=== PATIENT | female | born 1955 | race Caucasian/White ===

== ENCOUNTER → 2017-08-24 | Outpatient (CLI) | payer MEDICARE, OTHER ==
--- NOTE | 2017-08-28 08:04 | CT ---
EXAMINATION TYPE: CT angio neck DATE OF EXAM: 08/24/2017 COMPARISON: 10/28/2014 HISTORY: Vertebral Artery Stenosis CT DLP: 209.4 mGycm CONTRAST: CTA cervical carotids is performed and with IV Contrast, patient injected with 65ml mL of Omnipaque 3 50. Contrast CTA of the cervical carotids was performed 3-D reconstruction imaging obtained at a separate workstation. Right carotid system: Mild plaque is seen of the right common carotid artery. There is moderate plaq ue also noted at the carotid bulb. Estimated diameter reduction is 50%. ECA is patent. Right vert ebral artery is dominant and patent. Left carotid system: Mild plaque is seen of the left common carotid artery. There is minimal plaque also noted at the carotid bulb. No significant diameter reduction appreciated. ECA is patent. Left ve rtebral artery is diminutive in size however remains patent. IMPRESSION: 1. Estimated diameter reduction Right ICA 50% 2. No significant diameter reduction left ICA system. 3. Dominant right vertebral artery with diminutive left vertebral artery unchanged from prior examina tion.
== END | disposition home or self-care (01) ==
LOC: RADCTMAIN 17:14
PROVIDERS: ATTEND Psychiatry & Neurology Neurology
DX: I65.23 Occlusion and stenosis of bilateral carotid arteries (principal); Z88.6 Allergy status to analgesic agent
CPT/HCPCS: 70498; Q9967

== ENCOUNTER 2017-10-29 11:50 | Inpatient (IN) | payer MEDICARE, OTHER ==
[2017-10-29] MEDS ORDERED: IPRATROPIUM-ALBUTEROL 3 ML NEB INHALATION STA (12:21)
[2017-10-29] MEDS ORDERED: SODIUM CHLORIDE 0.9% 1,000 ML IV STA ×2 (12:22→15:39)
--- NOTE | 2017-10-29 12:25 | ED ---
Recheck HPI - General Chief Complaint: Recheck/Abnormal Lab/Rx Stated Complaint: Hyperglycemia Time Seen by Provider: 10/29/17 12:00 Source: patient, RN notes reviewed Mode of arrival: ambulatory Limitations: no limitations - History of Present Illness Initial Comments: This is a 62-year-old female who was sent over by her doctor for evaluation after it was found that she had a elevated glucose of 502. The patient did have laboratory work done in the office of her primary care doctor 5 days ago she was found have a glucose of 502. Patient complains of a headache that is rather severe in nature sharp. She has had a cough no phlegm production no fevers or chills no sweats. She states she has been thirsty and urinating a lot. She states this all started 3 days ago she also had loss of her right eye peripheral vision 3 days ago. No trauma is reported. MD Complaint: abnormal lab - Related Data Home Medications Medication Instructions Recorded Confirmed Loratadine [Claritin] 10 mg PO DAILY 01/01/16 10/29/17 Meclizine HCl 25 mg PO Q6H PRN 01/01/16 10/29/17 Montelukast [Singulair] 10 mg PO HS 01/01/16 10/29/17 Cholecalciferol [Vitamin D3] 1,000 unit PO DAILY 01/02/16 10/29/17 Fluticasone Nasal [place] [Flonase 1 spray EA NOSTRIL BID 01/02/16 10/29/17 Nasal [place]] HYDROcodone/APAP 5-325MG [[place] 1 tab PO TID PRN 01/02/16 10/29/17 5-325] amLODIPine [Norvasc] 10 mg PO DAILY 01/02/16 10/29/17 Albuterol Sulfate [Proair Hfa] 2 puff INHALATION RT-Q4H PRN 10/29/17 10/29/17 Aspirin EC [Ecotrin Low Dose] 81 mg PO DAILY 10/29/17 10/29/17 Chlorzoxazone [Parafon Forte DSC] 500 mg PO Q6HR PRN 10/29/17 10/29/17 DULoxetine HCL [Cymbalta] 60 mg PO DAILY 10/29/17 10/29/17 Fluticasone Propionate [Flovent 1 puff INHALATION RT-BID 10/29/17 10/29/17 Hfa 220MCG] hydrOXYzine PAMOATE [Vistaril] 50 mg PO TID PRN 10/29/17 10/29/17 hydrOXYzine PAMOATE [Vistaril] 100 mg PO HS PRN 10/29/17 10/29/17 Allergies Allergy/AdvReac Type Severity Reaction Status Date / Time baclofen Allergy Unknown Verified 10/29/17 12:05 gabapentin Allergy Anaphylaxis Verified 10/29/17 12:05 naproxen Allergy Swelling Verified 10/29/17 12:05 Review of Systems ROS Statement: Those systems with pertinent positive or pertinent negative responses have been documented in the HPI. ROS Other: All systems not noted in ROS Statement are negative. Past Medical History Past Medical History: Chest Pain / Angina, Hypertension Additional Past Medical History / Comment(s): BACK PAIN, Vertigo, chronic shoulder pain History of Any Multi-Drug Resistant Organisms: None Reported Past Surgical History: Cholecystectomy, Heart Catheterization Additional Past Surgical History / Comment(s): EPIDURAL INJECTIONS, patient says they burned the nerves on her neck. Heart cath done in 2012. Past Anesthesia/Blood Transfusion Reactions: Motion Sickness Past Psychological History: Anxiety Smoking Status: Current every day smoker Past Alcohol Use History: None Reported Past Drug Use History: None Reported - Past Family History Father Family Medical History: Hypertension, Myocardial Infarction ([place]) Additional Family Medical History / Comment(s): AT AGE 63 Mother Family Medical History: Diabetes Mellitus, Dialysis Additional Family Medical History / Comment(s): MOM UNK AGE-COMPLICATIONS FROM DIABETES General Exam - General Exam Comments Initial Comments: This is a well-developed well-nourished awake alert oriented 3 female she does have an active cough Limitations: no limitations General appearance: alert, anxious Head exam: Present: atraumatic, normocephalic, normal inspection Eye exam: Present: PERRL, EOMI, other (Examination GI grounds reveals no definite to pathology noted is a poor study). Absent: scleral icterus, conjunctival injection, periorbital swelling Pupils: Present: normal accommodation ENT exam: Present: mucous membranes dry Neck exam: Present: normal inspection. Absent: tenderness, meningismus, lymphadenopathy Respiratory exam: Present: wheezes, decreased breath sounds. Absent: respiratory distress, rales, rhonchi, stridor Cardiovascular Exam: Present: normal rhythm, tachycardia, normal heart sounds. Absent: systolic murmur, diastolic murmur, rubs, gallop, clicks GI/Abdominal exam: Present: soft, normal bowel sounds. Absent: distended, tenderness, guarding, rebound, rigid Extremities exam: Present: normal inspection, full ROM, normal capillary refill. Absent: tenderness, pedal edema, joint swelling, calf tenderness Back exam: Present: normal inspection Neurological exam: Present: alert, oriented X3, CN II-XII intact Psychiatric exam: Present: normal affect, normal mood Skin exam: Present: warm, dry, intact, normal color. Absent: rash Course Vital Signs 10/29/17 10/29/17 10/29/17 11:58 12:35 12:58 Temperature 98.1 F Pulse Rate 107 H 102 H 97 Respiratory 20 18 Rate Blood Pressure 134/66 138/83 O2 Sat by Pulse 94 L 95 Oximetry 10/29/17 10/29/17 10/29/17 13:07 13:33 14:00 Temperature 98.1 F 98.1 F Pulse Rate 96 60 99 Respiratory 18 18 Rate Blood Pressure 168/71 142/65 O2 Sat by Pulse 98 95 Oximetry - Reevaluation(s) Reevaluation #1: 10/29/17 15:30 Patient is feeling improved after the updraft treatment. Her glucose has improved somewhat with IV hydration. Her lactic acid is elevated she'll receive more fluids discuss the findings with Dr. Kat the patient will be admitted consultation by Dr. Escamilla continued treatment for elevated glucose grass until is negative at this time. Reevaluation #2: 10/29/17 15:30 The patient was initially started on antibiotics by her physician. No definite source of infection is revealed at this time. She does demonstrate an elevated leukocyte count however. Reevaluation #3: 10/29/17 15:32 The lactic acid is somewhat elevated this is likely on the basis of dehydration and renal insufficiency due to the white blood cell count and the previous history of antibiotics patient will be given a dose of Rocephin. Reevaluation #4: 10/29/17 15:37 Total time of discussing smoking risks and stopping the same 3.1 minutes Medical Decision Making - Lab Data Result diagrams: 10/29/17 11:20 10/29/17 11:20 Lab Results 10/29/17 10/29/17 10/29/17 Range/Units 11:20 11:20 11:20 WBC (3.8-10.6) k/uL RBC (3.80-5.40) m/uL Hgb (11.4-16.0) gm/dL Hct (34.0-46.0) % MCV (80.0-100.0) fL MCH (25.0-35.0) pg MCHC (31.0-37.0) g/dL RDW (11.5-15.5) % Plt Count (150-450) k/uL Neutrophils % % Lymphocytes % % Monocytes % % Eosinophils % % Basophils % % Neutrophils # (1.3-7.7) k/uL Lymphocytes # (1.0-4.8) k/uL Monocytes # (0-1.0) k/uL Eosinophils # (0-0.7) k/uL Basophils # (0-0.2) k/uL PT 9.5 (9.0-12.0) sec INR 1.0 (<1.2) APTT 21.0 L (22.0-30.0) sec Sodium (137-145) mmol/L Potassium (3.5-5.1) mmol/L Chloride (98-107) mmol/L Carbon Dioxide (22-30) mmol/L Anion Gap mmol/L BUN (7-17) mg/dL Creatinine (0.52-1.04) mg/dL Est GFR (MDRD) Af Amer (>60 ml/min/1.73 sqM) Est GFR (MDRD) Non-Af (>60 ml/min/1.73 sqM) Glucose (74-99) mg/dL POC Glucose (mg/dL) (75-99) mg/dL POC Glu Cover Operator ID Plasma Lactic Acid Km (0.7-2.0) mmol/L Calcium (8.4-10.2) mg/dL Magnesium (1.6-2.3) mg/dL Total Bilirubin (0.2-1.3) mg/dL AST (14-36) U/L ALT (9-52) U/L Alkaline Phosphatase (38-126) U/L Total Creatine Kinase 36 (30-135) U/L CK-MB (CK-2) 0.3 (0.0-2.4) ng/mL CK-MB (CK-2) Rel Index 0.8 NT-Pro-B Natriuret Pep 259 pg/mL Total Protein (6.3-8.2) g/dL Albumin (3.5-5.0) g/dL Acetone, Qual (Negative) 10/29/17 10/29/17 10/29/17 Range/Units 11:20 11:20 11:20 WBC 22.5 H (3.8-10.6) k/uL RBC 5.50 H (3.80-5.40) m/uL Hgb 15.6 (11.4-16.0) gm/dL Hct 46.6 H (34.0-46.0) % MCV 84.7 (80.0-100.0) fL MCH 28.4 (25.0-35.0) pg MCHC 33.6 (31.0-37.0) g/dL RDW 13.9 (11.5-15.5) % Plt Count 449 (150-450) k/uL Neutrophils % 77 % Lymphocytes % 17 % Monocytes % 4 % Eosinophils % 1 % Basophils % 0 % Neutrophils # 17.4 H (1.3-7.7) k/uL Lymphocytes # 3.9 (1.0-4.8) k/uL Monocytes # 0.9 (0-1.0) k/uL Eosinophils # 0.1 (0-0.7) k/uL Basophils # 0.0 (0-0.2) k/uL PT (9.0-12.0) sec INR (<1.2) APTT (22.0-30.0) sec Sodium 133 L (137-145) mmol/L Potassium 5.4 H (3.5-5.1) mmol/L Chloride 92 L (98-107) mmol/L Carbon Dioxide 21 L (22-30) mmol/L Anion Gap 20 mmol/L BUN 30 H (7-17) mg/dL Creatinine 1.27 H (0.52-1.04) mg/dL Est GFR (MDRD) Af Amer 52 (>60 ml/min/1.73 sqM) Est GFR (MDRD) Non-Af 43 (>60 ml/min/1.73 sqM) Glucose 517 H* (74-99) mg/dL POC Glucose (mg/dL) (75-99) mg/dL POC Glu Cover Operator ID Plasma Lactic Acid Km (0.7-2.0) mmol/L Calcium 10.8 H (8.4-10.2) mg/dL Magnesium 2.2 (1.6-2.3) mg/dL Total Bilirubin 0.4 (0.2-1.3) mg/dL AST 12 L (14-36) U/L ALT 22 (9-52) U/L Alkaline Phosphatase 191 H (38-126) U/L Total Creatine Kinase (30-135) U/L CK-MB (CK-2) (0.0-2.4) ng/mL CK-MB (CK-2) Rel Index NT-Pro-B Natriuret Pep pg/mL Total Protein 8.6 H (6.3-8.2) g/dL Albumin 4.9 (3.5-5.0) g/dL Acetone, Qual Negative (Negative) 10/29/17 10/29/17 10/29/17 Range/Units 11:20 12:27 13:56 WBC (3.8-10.6) k/uL RBC (3.80-5.40) m/uL Hgb (11.4-16.0) gm/dL Hct (34.0-46.0) % MCV (80.0-100.0) fL MCH (25.0-35.0) pg MCHC (31.0-37.0) g/dL RDW (11.5-15.5) % Plt Count (150-450) k/uL Neutrophils % % Lymphocytes % % Monocytes % % Eosinophils % % Basophils % % Neutrophils # (1.3-7.7) k/uL Lymphocytes # (1.0-4.8) k/uL Monocytes # (0-1.0) k/uL Eosinophils # (0-0.7) k/uL Basophils # (0-0.2) k/uL PT (9.0-12.0) sec INR (<1.2) APTT (22.0-30.0) sec Sodium (137-145) mmol/L Potassium (3.5-5.1) mmol/L Chloride (98-107) mmol/L Carbon Dioxide (22-30) mmol/L Anion Gap mmol/L BUN (7-17) mg/dL Creatinine (0.52-1.04) mg/dL Est GFR (MDRD) Af Amer (>60 ml/min/1.73 sqM) Est GFR (MDRD) Non-Af (>60 ml/min/1.73 sqM) Glucose (74-99) mg/dL POC Glucose (mg/dL) 485 H 386 H (75-99) mg/dL POC Glu Cover Operator Gina Be Danielle Plasma Lactic Acid Km 4.0 H* (0.7-2.0) mmol/L Calcium (8.4-10.2) mg/dL Magnesium (1.6-2.3) mg/dL Total Bilirubin (0.2-1.3) mg/dL AST (14-36) U/L ALT (9-52) U/L Alkaline Phosphatase (38-126) U/L Total Creatine Kinase (30-135) U/L CK-MB (CK-2) (0.0-2.4) ng/mL CK-MB (CK-2) Rel Index NT-Pro-B Natriuret Pep pg/mL Total Protein (6.3-8.2) g/dL Albumin (3.5-5.0) g/dL Acetone, Qual (Negative) - EKG Data -: EKG Interpreted by Me EKG shows normal: sinus rhythm (Sinus rhythm rate of 98. We'll 154 QRS duration 72 daily 6 QTC of 354/451 nonspecific T-wave configuration) - Radiology Data Radiology results: report reviewed (I did review the imaging and reports no definite acute findings are seen.), image reviewed Critical Care Time Critical Care Time: Yes Critical Care Time: 37 minutes of critical care time which includes initial presentation with history physical labs x-rays several reevaluation the patient responsive therapy discuss with the patient family regarding findings with the admitting physician and documentation of the above. Disposition Clinical Impression: Uncontrolled diabetes mellitus, Renal insufficiency syndrome, Dehydration, COPD with exacerbation, Smoking Disposition: ADMITTED IP TO THIS [facility] Condition: Stable Referrals: Kiah Amin MD [Primary Care Provider] - 1-2 days
[2017-10-29 12:29] LABS: Glucose,Whole Blood 485 mg/dL (75-99)
[2017-10-29 12:44] LABS: Basophils % (A) 0 %; Eosinophils # (A) 0.1 k/uL (0-0.7); Eosinophils % (A) 1 %; HCT 46.6 % (34.0-46.0); HGB 15.6 gm/dL (11.4-16.0); Lymphocytes # (A) 3.9 k/uL (1.0-4.8); Lymphocytes % (A) 17 %; MCH 28.4 pg (25.0-35.0); MCHC 33.6 g/dL (31.0-37.0); MCV 84.7 fL (80.0-100.0); Mean Platelet Volume 7.8; Monocytes # (A) 0.9 k/uL (0-1.0); Monocytes % (A) 4 %; Neutrophils # (A) 17.4 k/uL (1.3-7.7); Neutrophils % (A) 77 %; Platelet Count 449 k/uL (150-450); RDW 13.9 % (11.5-15.5); WBC 22.5 k/uL (3.8-10.6)
[2017-10-29 12:53] LABS: Albumin 4.9 g/dL (3.5-5.0); Calcium 10.8 mg/dL (8.4-10.2); Magnesium 2.2 mg/dL (1.6-2.3); Potassium 5.4 mmol/L (3.5-5.1); Total Bilirubin 0.4 mg/dL (0.2-1.3); Total Protein 8.6 g/dL (6.3-8.2)
[2017-10-29 12:59] LABS: Prothrombin Time 9.5 sec (9.0-12.0)
--- NOTE | 2017-10-29 13:01 | XR ---
EXAMINATION TYPE: XR chest 2V DATE OF EXAM: 10/29/2017 COMPARISON: Chest x-ray January 01, 2016 HISTORY: Cough. TECHNIQUE: Frontal and lateral views of the chest are obtained. FINDINGS: There is chronic parenchymal change without suspicious focal air space opacity, pleural ef fusion, or pneumothorax seen. The cardiac silhouette size is stable and upper limits of normal. Th e osseous structures are intact. Numerous surgical clips in the mid abdomen are noted. IMPRESSION: No suspicious acute pulmonary process.
--- NOTE | 2017-10-29 13:03 | CT ---
EXAMINATION TYPE: CT brain wo con DATE OF EXAM: 10/29/2017 COMPARISON: 01/01/2016 HISTORY: Patient complains of headache, dizziness, sinus infection, and left side ear pain. CT DLP: 785.6 mGycm Automated exposure control for dose reduction was used. FINDINGS: There is encephalomalacia in the left occipital lobe from prior posterior cerebral artery distributio n infarct. This involves both the rea-white matter interface and therefore is not related to vasogen ic edema. This is new from the exam of 01/01/2016. This is also wedge shaped on series 3 image 29. No a cute intracranial hemorrhage or midline shift is seen. No suspicious extra axial fluid collection. Re mainder of the rea-white interface is preserved. Ventricles and peripheral sulci are mildly prominen t and symmetric compatible with age-related volume loss. Incidental note is made of a partially empty sella turcica. Posterior nasopharynx mucosal retention cyst is noted measuring 1.3 cm. Paranasal sin uses are well aerated as are the mastoid air cells. IMPRESSION: 1. NO ACUTE INTRACRANIAL PROCESS. 2. 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 THI S APPEARS CHRONIC BUT HAS DEVELOPED IN THE INTERIM IN COMPARISON TO EXAM OF 01/01/2016. 3. NO CURRENT EVIDENCE OF PARANASAL SINUS DISEASE ON CT. 1.3 CM POSTERIOR NASOPHARYNX MUCOSAL RETENTI ON CYST IS NOTED.
[2017-10-29 13:16] LABS: Creatine Kinase MB 0.3 ng/mL (0.0-2.4)
[2017-10-29] MEDS ORDERED: INSULIN REGULAR 100 UNIT/ML VIAL IV ONE (13:27)
[2017-10-29 13:58] LABS: Glucose,Whole Blood 386 mg/dL (75-99)
[2017-10-29] MEDS ORDERED: methylPREDNISolone SOD SUCCI 125 MG/2 ML VIAL IV STA (15:37)
[2017-10-29] MEDS ORDERED: INSULIN REGULAR 100 UNIT/ML VIAL SQ ONE (15:38)
[2017-10-29 15:39] LABS: Glucose,Whole Blood 303 mg/dL (75-99)
[2017-10-29] MEDS ORDERED: hydrOXYzine PAMOATE 25 MG CAP PO PRN ×2 (15:41)
[2017-10-29] MEDS ORDERED: MECLIZINE 25 MG TAB PO PRN (15:41)
[2017-10-29] MEDS ORDERED: CYCLOBENZAPRINE 5 MG TAB PO PRN (15:41)
[2017-10-29] MEDS ORDERED: cefTRIAXone IN SWFI 1,000 MG/10 ML SYRINGE IVP STA (15:43)
[2017-10-29] MEDS: IPRATROPIUM-ALBUTEROL 3 ML NEB INHALATION SCH ×2 (16:17→20:27)
[2017-10-29] MEDS: INSULIN ASPART 100 UNIT/ML 1 ML 10 ML VIAL SQ SCH (17:16)
[2017-10-29 17:18] LABS: Glucose,Whole Blood 392 mg/dL (75-99)
[2017-10-29] MEDS: HYDROcodone/APAP 5-325MG 1 EACH TAB PO PRN (18:17)
[2017-10-29] MEDS ORDERED: SODIUM CHLORIDE 0.9% 1,000 ML IV SCH ×2 (18:30→21:00)
[2017-10-29] MEDS ORDERED: INSULIN REGULAR BOLUS (FROM DRIP BAG) IV ONE (20:47)
[2017-10-29] MEDS ORDERED: Magnesium Replacement Protocol 1 EACH MISC MISCELLANE PRN (20:47)
[2017-10-29] MEDS ORDERED: Potassium Replacement Protocol 1 EACH MISC MISCELLANE PRN (20:47)
[2017-10-29 21:22] LABS: Basophils % (A) 0 %; Eosinophils % (A) 0 %; HGB 14.2 gm/dL (11.4-16.0); Lymphocytes # (A) 1.9 k/uL (1.0-4.8); Lymphocytes % (A) 12 %; MCH 28.8 pg (25.0-35.0); MCHC 33.9 g/dL (31.0-37.0); MCV 85.1 fL (80.0-100.0); Mean Platelet Volume 7.4; Monocytes # (A) 0.2 k/uL (0-1.0); Monocytes % (A) 1 %; Neutrophils % (A) 87 %; Platelet Count 377 k/uL (150-450); RBC 4.94 m/uL (3.80-5.40); RDW 13.9 % (11.5-15.5); WBC 16.1 k/uL (3.8-10.6)
[2017-10-29 21:37] LABS: Anion Gap 12 mmol/L; Blood Urea Nitrogen 26 mg/dL (7-17); Carbon Dioxide 21 mmol/L (22-30); Chloride 100 mmol/L (98-107); Glucose 264 mg/dL (74-99); Potassium 4.8 mmol/L (3.5-5.1); Sodium 133 mmol/L (137-145)
[2017-10-29 21:41] LABS: Glucose,Whole Blood 233 mg/dL (75-99)
[2017-10-29 21:43] LABS: Glucose,Whole Blood 321 mg/dL (75-99)
[2017-10-29] MEDS: INSULIN REGULAR 100 UNIT in SODIUM CHLORIDE 0.9% 100 ML IV SCH (21:59)
[2017-10-29 22:45] LABS: Hemoglobin A1C 9.7 % (4.0-6.0)
[2017-10-29] MEDS: D5-0.45% NACL WITH KCL 20MEQ/L 1,000 ML IV SCH (23:07)
[2017-10-29] MEDS: methylPREDNISolone SOD SUCCI 125 MG/2 ML VIAL IV SCH (23:11)
[2017-10-29] MEDS: MONTELUKAST 10 MG TAB PO SCH (23:11)
[2017-10-29 23:35] LABS: Glucose,Whole Blood 216 mg/dL (75-99)
[2017-10-30 00:18] LABS: Glucose,Whole Blood 268 mg/dL (75-99)
[2017-10-30] MEDS: IPRATROPIUM-ALBUTEROL 3 ML NEB INHALATION SCH ×6 (00:23→19:35)
[2017-10-30] MEDS: FLUTICASONE 50MCG/SPRAY NASAL 16GM EA NOSTRIL SCH ×3 (00:35→20:56)
[2017-10-30 01:04] LABS: Anion Gap 12 mmol/L; Blood Urea Nitrogen 24 mg/dL (7-17); Carbon Dioxide 23 mmol/L (22-30); Chloride 100 mmol/L (98-107); Glucose 272 mg/dL (74-99); Phosphorus 2.9 mg/dL (2.5-4.5); Potassium 4.3 mmol/L (3.5-5.1); Sodium 135 mmol/L (137-145)
[2017-10-30 01:22] LABS: Glucose,Whole Blood 291 mg/dL (75-99)
[2017-10-30 02:08] LABS: Glucose,Whole Blood 280 mg/dL (75-99)
[2017-10-30] MEDS: INSULIN ASPART 100 UNIT/ML 1 ML 10 ML VIAL SQ SCH (02:49)
[2017-10-30 03:42] LABS: Glucose,Whole Blood 253 mg/dL (75-99)
[2017-10-30 05:22] LABS: Anion Gap 10 mmol/L; Blood Urea Nitrogen 22 mg/dL (7-17); Carbon Dioxide 20 mmol/L (22-30); Chloride 104 mmol/L (98-107); Glucose 234 mg/dL (74-99); Potassium 5.7 mmol/L (3.5-5.1); Sodium 134 mmol/L (137-145)
[2017-10-30 05:48] LABS: Glucose,Whole Blood 198 mg/dL (75-99)
[2017-10-30] MEDS: D5-0.45% NACL WITH KCL 20MEQ/L 1,000 ML IV SCH ×3 (05:52→20:45)
[2017-10-30] MEDS: methylPREDNISolone SOD SUCCI 125 MG/2 ML VIAL IV SCH ×4 (05:55→23:26)
[2017-10-30] MEDS: INSULIN REGULAR 100 UNIT in SODIUM CHLORIDE 0.9% 100 ML IV SCH ×2 (06:45→17:16)
[2017-10-30] MEDS ORDERED: SODIUM POLYSTYRENE SULFONATE 15 GM/60 ML BOTTLE PO STA (06:46)
[2017-10-30 06:57] LABS: Glucose,Whole Blood 152 mg/dL (75-99)
[2017-10-30 07:57] LABS: Glucose,Whole Blood 143 mg/dL (75-99)
[2017-10-30] MEDS: CHOLECALCIFEROL 1,000 UNIT TAB PO SCH (08:43)
[2017-10-30] MEDS: DULoxetine HCL 60 MG CAPSULE.DR PO SCH (08:43)
[2017-10-30] MEDS: amLODIPine 10 MG TAB PO SCH (08:43)
[2017-10-30] MEDS: LORATADINE 10 MG TAB PO SCH (08:43)
[2017-10-30] MEDS: ASPIRIN 81 MG PO SCH (08:43)
[2017-10-30 09:48] LABS: Glucose,Whole Blood 313 mg/dL (75-99)
[2017-10-30 10:27] LABS: Glucose,Whole Blood 302 mg/dL (75-99)
[2017-10-30 11:10] LABS: Glucose,Whole Blood 300 mg/dL (75-99)
--- NOTE | 2017-10-30 11:23 | P.CNPUL ---
History of Present Illness Consult date: 10/30/17 Reason for consult: dyspnea, COPD History of present illness: A 62-year-old female patient, a chronic smoker, with known history of COPD whereas been maintained on Flovent discus 251 puff twice a day and Proventil rescue inhaler on an estimated basis. The patient is smoking approximately 1 pack of cigarette a day and she carries more than [id number] smoking history. The patient was having increased dyspnea cough chest congestion and shortness of breath and for that reason the patient was seen by primary care physician and the patient was treated on outpatient basis and antibiotics. She did not have any significant improvement. She subsequently started having headaches especially when she coughs. She was urinating a lot and her blood sugars went up probably related to the systemic steroids that the patient was given on outpatient basis. Apparently her blood sugar was as high as 500 in the office setting. Based on all this, the patient was sent into the hospital for further evaluation. Chest x-ray was done and showed no acute abnormalities. There is no acute pulmonary infiltration or pneumonia. No pleurisy. No hemoptysis. No altered mentation. The patient is moving all 4 extremity is without any limitation. No nausea. No vomiting. No diarrhea. The blood work did not show any evidence of diabetic ketoacidosis. The patient was started insulin drip for blood sugar is under better control. Her serum bicarb level is at 20 with an anion gap of 10. The white cell count is at 16.1 from yesterday. The patient was started on IV Solu Medrol 60 g every 6 hours in addition to the insulin drip. The patient also on DuoNeb neb last 2 minutes [id number]. No antibiotics for now. She is on D5 half-normal saline with 20 mmilliequivalents of potassium at the rate of 150 mL an hour. She has been hospitalized in the past for syncopal episodes and the workup for that his been essentially negative. The patient's echocardiogram from 2016 showed a preserved LV function with an ejection fraction of 55-60%. Review of Systems Constitutional: Denies chills, Denies fever Eyes: bilateral blurred vision, bilateral decreased vision, denies bulging eye Ears: deny: decreased hearing, ear discharge, earache Ears, nose, mouth and throat: Denies headache, Denies sore throat Cardiovascular: Reports dyspnea on exertion Respiratory: Reports cough, Reports dyspnea, Reports wheezing Gastrointestinal: Denies abdominal pain, Denies diarrhea, Denies nausea, Denies vomiting Genitourinary: Denies dysuria, Denies hematuria Menstruation: Reports as per HPI Musculoskeletal: Denies myalgias Musculoskeletal: absent: ankle pain, ankle stiffness, ankle swelling Integumentary: Denies pruritus, Denies rash Neurological: Reports headaches Psychiatric: Denies anxiety, Denies depression Endocrine: Reports excessive thirst, Reports fatigue, Reports high blood sugars , Reports polyuria Hematologic/Lymphatic: Reports as per HPI Allergic/Immunologic: Reports as per HPI Past Medical History Past Medical History: Hypertension Additional Past Medical History / Comment(s): COPD, chronic back pain, Vertigo, hypertension History of Any Multi-Drug Resistant Organisms: None Reported Past Surgical History: Cholecystectomy, Heart Catheterization Additional Past Surgical History / Comment(s): epidural injections, rhizotomy involving the lumbar spine for chronic back pain, cardiac catheterization, cholecystectomy Past Anesthesia/Blood Transfusion Reactions: Motion Sickness Past Psychological History: Anxiety Smoking Status: Current every day smoker Past Alcohol Use History: None Reported Additional Past Alcohol Use History / Comment(s): STARTED SMOKING AT AGE 28 IPPD HAS RECENTLY CUT DOWN TO 3 CIG/DAY Past Drug Use History: None Reported - Past Family History Father Family Medical History: Hypertension, Myocardial Infarction ([place]) Additional Family Medical History / Comment(s): AT AGE 63 Mother Family Medical History: Diabetes Mellitus, Dialysis Additional Family Medical History / Comment(s): MOM UNK AGE-COMPLICATIONS FROM DIABETES Sister(s) Family Medical History: Diabetes Mellitus Medications and Allergies Home Medications Medication Instructions Recorded Confirmed Type Loratadine [Claritin] 10 mg PO DAILY 01/01/16 10/29/17 History Meclizine HCl 25 mg PO Q6H PRN 01/01/16 10/29/17 History Montelukast [Singulair] 10 mg PO HS 01/01/16 10/29/17 History Cholecalciferol [Vitamin D3] 1,000 unit PO DAILY 01/02/16 10/29/17 History Fluticasone Nasal [place] [Flonase 1 spray EA NOSTRIL BID 01/02/16 10/29/17 History Nasal [place]] HYDROcodone/APAP 5-325MG [[place] 1 tab PO TID PRN 01/02/16 10/29/17 History 5-325] amLODIPine [Norvasc] 10 mg PO DAILY 01/02/16 10/29/17 History Albuterol Sulfate [Proair Hfa] 2 puff INHALATION RT-Q4H PRN 10/29/17 10/29/17 History Aspirin EC [Ecotrin Low Dose] 81 mg PO DAILY 10/29/17 10/29/17 History Chlorzoxazone [Parafon Forte DSC] 500 mg PO Q6HR PRN 10/29/17 10/29/17 History DULoxetine HCL [Cymbalta] 60 mg PO DAILY 10/29/17 10/29/17 History Fluticasone Propionate [Flovent 1 puff INHALATION RT-BID 10/29/17 10/29/17 History Hfa 220MCG] hydrOXYzine PAMOATE [Vistaril] 50 mg PO TID PRN 10/29/17 10/29/17 History hydrOXYzine PAMOATE [Vistaril] 100 mg PO HS PRN 10/29/17 10/29/17 History Allergies Allergy/AdvReac Type Severity Reaction Status Date / Time baclofen Allergy Unknown Verified 10/29/17 12:05 gabapentin Allergy Anaphylaxis Verified 10/29/17 12:05 naproxen Allergy Swelling Verified 10/29/17 12:05 Physical Exam Vitals: Vital Signs Temp Pulse Pulse Resp BP BP Pulse Ox 10/30/17 11:09 97.8 F 87 16 136/65 92 L 10/30/17 08:43 97.6 F 96 16 124/62 92 L 10/30/17 08:10 92 10/30/17 08:00 88 10/30/17 01:16 97.2 F L 93 10 L 118/60 93 L 10/30/17 00:36 90 10/30/17 00:23 91 10/29/17 20:35 97 10/29/17 20:29 96 10/29/17 17:04 96.9 F L 100 18 149/71 90 L 10/29/17 15:50 98.3 F 90 18 132/71 93 L 10/29/17 14:00 98.1 F 99 18 142/65 95 10/29/17 13:33 98.1 F 60 18 168/71 98 10/29/17 13:07 96 10/29/17 12:58 97 10/29/17 12:35 102 H 18 138/83 95 10/29/17 11:58 98.1 F 107 H 20 134/66 94 L Intake and Output 10/29/17 10/30/17 10/30/17 22:59 06:59 14:59 Intake Total 71.511 262.832 Balance 71.511 262.832 Intake: Intake, IV Titration 71.511 22.832 Amount Insulin Regular 100 unit 71.511 22.832 In Sodium Chloride 0.9% 100 ml @ 0.1 UNITS/KG/HR 5.95 mls/hr IV .[id number] JOSE Rx#:[id number] Oral 0 240 Other: Voiding Method Toilet Toilet # Voids 1 Weight 62 kg Head exam was generally normal. There was no scleral icterus or corneal arcus. Mucous membranes were moist.Neck was supple and without jugular venous distension, thyromegaly, or carotid bruits. Carotids were easily palpable bilaterally. There was no adenopathy. Lung sounds are diminished bilaterally along with some scattered expiratory wheezes and rhonchi heard throughout the lung nicole bilaterally especially with expiratory maneuvers. No use of accessory muscles of breathing.Cardiac exam revealed the PMI to be normally situated and sized. The rhythm was regular and no extrasystoles were noted during several minutes of auscultation. The first and second heart sounds were normal and physiologic splitting of the second heart sound was noted. There were no murmurs, rubs, clicks, or gallops.Abdominal exam revealed normal bowel sounds. The abdomen was soft, non-tender, and without masses, organomegaly, or appreciable enlargement of the abdominal aorta.Examination of the extremities revealed easily palpable radial, femoral and pedal pulses. There was no cyanosis , clubbing or edema.Examination of the skin revealed no evidence of significant rashes, suspicious appearing nevi or other concerning lesions. Neurologically the patient is awake and alert and there is no focal neurological deficit. Psychiatric appropriate affect.Examination of the skin revealed no evidence of significant rashes, suspicious appearing nevi or other concerning lesions. Results - Laboratory Findings CBC and BMP: 10/29/17 21:11 10/30/17 04:46 PT/INR, D-dimer PT 9.5 sec (9.0-12.0) 10/29/17 11:20 INR 1.0 (<1.2) 10/29/17 11:20 Abnormal lab findings: Abnormal Labs 10/29/17 10/29/17 10/29/17 11:20 11:20 11:20 WBC 22.5 H RBC 5.50 H Hct 46.6 H Neutrophils # 17.4 H APTT 21.0 L Sodium Potassium Chloride Carbon Dioxide BUN Creatinine Glucose POC Glucose (mg/dL) Hemoglobin A1c 9.7 H Plasma Lactic Acid Km Calcium AST Alkaline Phosphatase Total Protein 10/29/17 10/29/17 10/29/17 11:20 11:20 12:27 WBC RBC Hct Neutrophils # APTT Sodium 133 L Potassium 5.4 H Chloride 92 L Carbon Dioxide 21 L BUN 30 H Creatinine 1.27 H Glucose 517 H* POC Glucose (mg/dL) 485 H Hemoglobin A1c Plasma Lactic Acid Km 4.0 H* Calcium 10.8 H AST 12 L Alkaline Phosphatase 191 H Total Protein 8.6 H 10/29/17 10/29/17 10/29/17 13:56 15:37 17:05 WBC RBC Hct Neutrophils # APTT Sodium Potassium Chloride Carbon Dioxide BUN Creatinine Glucose POC Glucose (mg/dL) 386 H 303 H 392 H Hemoglobin A1c Plasma Lactic Acid Km Calcium AST Alkaline Phosphatase Total Protein 10/29/17 10/29/17 10/29/17 17:55 20:50 21:11 WBC 16.1 H RBC Hct Neutrophils # 14.0 H APTT Sodium Potassium Chloride Carbon Dioxide BUN Creatinine Glucose POC Glucose (mg/dL) 233 H Hemoglobin A1c Plasma Lactic Acid Km 4.5 H* Calcium AST Alkaline Phosphatase Total Protein 10/29/17 10/29/17 10/29/17 21:11 21:41 22:59 WBC RBC Hct Neutrophils # APTT Sodium 133 L Potassium Chloride Carbon Dioxide 21 L BUN 26 H Creatinine Glucose 264 H POC Glucose (mg/dL) 321 H 216 H Hemoglobin A1c Plasma Lactic Acid Km Calcium AST Alkaline Phosphatase Total Protein 10/29/17 10/30/17 10/30/17 23:15 00:16 00:35 WBC RBC Hct Neutrophils # APTT Sodium 135 L Potassium Chloride Carbon Dioxide BUN 24 H Creatinine Glucose 272 H POC Glucose (mg/dL) 268 H Hemoglobin A1c Plasma Lactic Acid Km 3.3 H* Calcium AST Alkaline Phosphatase Total Protein 10/30/17 10/30/17 10/30/17 01:20 02:02 03:39 WBC RBC Hct Neutrophils # APTT Sodium Potassium Chloride Carbon Dioxide BUN Creatinine Glucose POC Glucose (mg/dL) 291 H 280 H 253 H Hemoglobin A1c Plasma Lactic Acid Km Calcium AST Alkaline Phosphatase Total Protein 10/30/17 10/30/17 10/30/17 04:46 05:45 06:55 WBC RBC Hct Neutrophils # APTT Sodium 134 L Potassium 5.7 H Chloride Carbon Dioxide 20 L BUN 22 H Creatinine Glucose 234 H POC Glucose (mg/dL) 198 H 152 H Hemoglobin A1c Plasma Lactic Acid Km Calcium AST Alkaline Phosphatase Total Protein 10/30/17 10/30/17 10/30/17 07:56 09:47 10:15 WBC RBC Hct Neutrophils # APTT Sodium Potassium Chloride Carbon Dioxide BUN Creatinine Glucose POC Glucose (mg/dL) 143 H 313 H 302 H Hemoglobin A1c Plasma Lactic Acid Km Calcium AST Alkaline Phosphatase Total Protein 10/30/17 11:05 WBC RBC Hct Neutrophils # APTT Sodium Potassium Chloride Carbon Dioxide BUN Creatinine Glucose POC Glucose (mg/dL) 300 H Hemoglobin A1c Plasma Lactic Acid Km Calcium AST Alkaline Phosphatase Total Protein - Diagnostic Findings Chest x-ray: image reviewed Assessment and Plan Plan: Assessment 1 acute COPD exacerbation with secondary shortness of breath 2 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 3 smoker 4 steroid-induced hyperglycemia, rule out underlying diabetes mellitus 5 hypertension 6 chronic back pain 7 chronic vertigo Plan Patient has been cheated on outpatient basis with antibiotics. His COPD remained active. The patient will need systemic steroids. The patient will need DuoNeb nebulized treatments around the clock. The patient was counseled for smoking cessation. There is some advise regarding outpatient inhalers. The addition of a long-acting anticholinergic is very useful especially with her history of COPD. I will suggest discharging her on Spiriva and do a pulmonary function test on outpatient basis. Flovent may be of limited value in her condition. We'll continue to follow. Monitor the blood sugar with insulin drip and will continue to follow make further recommendations based on her progress.
[2017-10-30 11:45] VITALS: BMI 26.6
[2017-10-30 12:10] LABS: Glucose,Whole Blood 288 mg/dL (75-99)
[2017-10-30 13:18] LABS: Glucose,Whole Blood 281 mg/dL (75-99)
[2017-10-30] MEDS ORDERED: ACETAMINOPHEN TAB 325 MG TAB PO PRN (13:23)
[2017-10-30] MEDS ORDERED: ONDANSETRON 4 MG/2 ML VIAL IVP PRN (13:23)
--- NOTE | 2017-10-30 13:26 | P.HPIM ---
History of Present Illness H&P Date: 10/30/17 Chief Complaint: Shortness of breath This is 62-year-old female with past medical history noted below significant for underlying COPD and ongoing tobacco abuse who presented to the emergency room with worsening shortness of breath and cough. Patient said that she was having difficulty with her breathing over the past several weeks. She is complaining of cough that is generally productive of yellowish sputum. She was also having progressive shortness of breath and wheezing. She was seen and evaluated by her primary care physician and was given an antibiotic and steroid course as an outpatient with minimal relief. She had a follow-up with her PCP and was found to have a blood glucose greater than 500. She was sent to the emergency room for further evaluation. She is not known to have a history of diabetes and is not on any diabetic medication at home. Patient was evaluated in the emergency room and was found to be in mild DKA. She was started on IV insulin drip currently admitted to telemetry floor. She is feeling slightly better. Review of Systems Review of system: 14 points review of systems were obtained and were negative except to what were mentioned in the HPI. Past Medical History Past Medical History: Hypertension Additional Past Medical History / Comment(s): COPD, chronic back pain, Vertigo, hypertension History of Any Multi-Drug Resistant Organisms: None Reported Past Surgical History: Cholecystectomy, Heart Catheterization Additional Past Surgical History / Comment(s): epidural injections, rhizotomy involving the lumbar spine for chronic back pain, cardiac catheterization, cholecystectomy Past Anesthesia/Blood Transfusion Reactions: Motion Sickness Past Psychological History: Anxiety Smoking Status: Current every day smoker Past Alcohol Use History: None Reported Additional Past Alcohol Use History / Comment(s): STARTED SMOKING AT AGE 28 IPPD HAS RECENTLY CUT DOWN TO 3 CIG/DAY Past Drug Use History: None Reported - Past Family History Father Family Medical History: Hypertension, Myocardial Infarction ([place]) Additional Family Medical History / Comment(s): AT AGE 63 Mother Family Medical History: Diabetes Mellitus, Dialysis Additional Family Medical History / Comment(s): MOM UNK AGE-COMPLICATIONS FROM DIABETES Sister(s) Family Medical History: Diabetes Mellitus Medications and Allergies Home Medications Medication Instructions Recorded Confirmed Type Loratadine [Claritin] 10 mg PO DAILY 01/01/16 10/29/17 History Meclizine HCl 25 mg PO Q6H PRN 01/01/16 10/29/17 History Montelukast [Singulair] 10 mg PO HS 01/01/16 10/29/17 History Cholecalciferol [Vitamin D3] 1,000 unit PO DAILY 01/02/16 10/29/17 History Fluticasone Nasal [place] [Flonase 1 spray EA NOSTRIL BID 01/02/16 10/29/17 History Nasal [place]] HYDROcodone/APAP 5-325MG [[place] 1 tab PO TID PRN 01/02/16 10/29/17 History 5-325] amLODIPine [Norvasc] 10 mg PO DAILY 01/02/16 10/29/17 History Albuterol Sulfate [Proair Hfa] 2 puff INHALATION RT-Q4H PRN 10/29/17 10/29/17 History Aspirin EC [Ecotrin Low Dose] 81 mg PO DAILY 10/29/17 10/29/17 History Chlorzoxazone [Parafon Forte DSC] 500 mg PO Q6HR PRN 10/29/17 10/29/17 History DULoxetine HCL [Cymbalta] 60 mg PO DAILY 10/29/17 10/29/17 History Fluticasone Propionate [Flovent 1 puff INHALATION RT-BID 10/29/17 10/29/17 History Hfa 220MCG] hydrOXYzine PAMOATE [Vistaril] 50 mg PO TID PRN 10/29/17 10/29/17 History hydrOXYzine PAMOATE [Vistaril] 100 mg PO HS PRN 10/29/17 10/29/17 History Allergies Allergy/AdvReac Type Severity Reaction Status Date / Time baclofen Allergy Unknown Verified 10/29/17 12:05 gabapentin Allergy Anaphylaxis Verified 10/29/17 12:05 naproxen Allergy Swelling Verified 10/29/17 12:05 Physical Exam Vitals: Vital Signs Temp Pulse Pulse Resp BP BP Pulse Ox 10/30/17 11:50 90 10/30/17 11:39 88 10/30/17 11:09 97.8 F 87 16 136/65 92 L 10/30/17 08:43 97.6 F 96 16 124/62 92 L 10/30/17 08:10 92 10/30/17 08:00 88 10/30/17 01:16 97.2 F L 93 10 L 118/60 93 L 10/30/17 00:36 90 10/30/17 00:23 91 10/29/17 20:35 97 10/29/17 20:29 96 10/29/17 17:04 96.9 F L 100 18 149/71 90 L 10/29/17 15:50 98.3 F 90 18 132/71 93 L 10/29/17 14:00 98.1 F 99 18 142/65 95 10/29/17 13:33 98.1 F 60 18 168/71 98 Intake and Output 10/29/17 10/30/17 10/30/17 22:59 06:59 14:59 Intake Total 71.511 502.832 Balance 71.511 502.832 Intake: Intake, IV Titration 71.511 22.832 Amount Insulin Regular 100 unit 71.511 22.832 In Sodium Chloride 0.9% 100 ml @ 0.1 UNITS/KG/HR 5.95 mls/hr IV .[id number] JOSE Rx#:[id number] Oral 0 480 Other: Voiding Method Toilet Toilet # Voids 1 Weight 62 kg 62 kg Patient Weight 10/31/17 06:59 Weight 62 kg General: The patient is awake and alert, in no distress Eye: there is normal conjunctiva bilaterally. Neck: The neck is supple, there is no JVD. Cardiovascular: Normal S1-S2, no S3-S4, no murmurs. Respiratory: Lungs with end expiratory wheezing Gastrointestinal: Abdomen is soft, nontender Musculoskeletal: There is no pedal edema. Neurological:. Speech is normal. Skin: Skin is warm and dry Results CBC & Chem 7: 10/29/17 21:11 10/30/17 04:46 Labs: Abnormal Lab Results - Last 24 Hours (Table) 10/29/17 10/29/17 10/29/17 Range/Units 11:20 11:20 13:56 WBC (3.8-10.6) k/uL Neutrophils # (1.3-7.7) k/uL Sodium (137-145) mmol/L Potassium (3.5-5.1) mmol/L Carbon Dioxide (22-30) mmol/L BUN (7-17) mg/dL Glucose (74-99) mg/dL POC Glucose (mg/dL) 386 H (75-99) mg/dL Hemoglobin A1c 9.7 H (4.0-6.0) % Plasma Lactic Acid Km 4.0 H* (0.7-2.0) mmol/L 10/29/17 10/29/17 10/29/17 Range/Units 15:37 17:05 17:55 WBC (3.8-10.6) k/uL Neutrophils # (1.3-7.7) k/uL Sodium (137-145) mmol/L Potassium (3.5-5.1) mmol/L Carbon Dioxide (22-30) mmol/L BUN (7-17) mg/dL Glucose (74-99) mg/dL POC Glucose (mg/dL) 303 H 392 H (75-99) mg/dL Hemoglobin A1c (4.0-6.0) % Plasma Lactic Acid Km 4.5 H* (0.7-2.0) mmol/L 10/29/17 10/29/17 10/29/17 Range/Units 20:50 21:11 21:11 WBC 16.1 H (3.8-10.6) k/uL Neutrophils # 14.0 H (1.3-7.7) k/uL Sodium 133 L (137-145) mmol/L Potassium (3.5-5.1) mmol/L Carbon Dioxide 21 L (22-30) mmol/L BUN 26 H (7-17) mg/dL Glucose 264 H (74-99) mg/dL POC Glucose (mg/dL) 233 H (75-99) mg/dL Hemoglobin A1c (4.0-6.0) % Plasma Lactic Acid Km (0.7-2.0) mmol/L 10/29/17 10/29/17 10/29/17 Range/Units 21:41 22:59 23:15 WBC (3.8-10.6) k/uL Neutrophils # (1.3-7.7) k/uL Sodium (137-145) mmol/L Potassium (3.5-5.1) mmol/L Carbon Dioxide (22-30) mmol/L BUN (7-17) mg/dL Glucose (74-99) mg/dL POC Glucose (mg/dL) 321 H 216 H (75-99) mg/dL Hemoglobin A1c (4.0-6.0) % Plasma Lactic Acid Km 3.3 H* (0.7-2.0) mmol/L 10/30/17 10/30/17 10/30/17 Range/Units 00:16 00:35 01:20 WBC (3.8-10.6) k/uL Neutrophils # (1.3-7.7) k/uL Sodium 135 L (137-145) mmol/L Potassium (3.5-5.1) mmol/L Carbon Dioxide (22-30) mmol/L BUN 24 H (7-17) mg/dL Glucose 272 H (74-99) mg/dL POC Glucose (mg/dL) 268 H 291 H (75-99) mg/dL Hemoglobin A1c (4.0-6.0) % Plasma Lactic Acid Km (0.7-2.0) mmol/L 10/30/17 10/30/17 10/30/17 Range/Units 02:02 03:39 04:46 WBC (3.8-10.6) k/uL Neutrophils # (1.3-7.7) k/uL Sodium 134 L (137-145) mmol/L Potassium 5.7 H (3.5-5.1) mmol/L Carbon Dioxide 20 L (22-30) mmol/L BUN 22 H (7-17) mg/dL Glucose 234 H (74-99) mg/dL POC Glucose (mg/dL) 280 H 253 H (75-99) mg/dL Hemoglobin A1c (4.0-6.0) % Plasma Lactic Acid Km (0.7-2.0) mmol/L 10/30/17 10/30/17 10/30/17 Range/Units 05:45 06:55 07:56 WBC (3.8-10.6) k/uL Neutrophils # (1.3-7.7) k/uL Sodium (137-145) mmol/L Potassium (3.5-5.1) mmol/L Carbon Dioxide (22-30) mmol/L BUN (7-17) mg/dL Glucose (74-99) mg/dL POC Glucose (mg/dL) 198 H 152 H 143 H (75-99) mg/dL Hemoglobin A1c (4.0-6.0) % Plasma Lactic Acid Km (0.7-2.0) mmol/L 10/30/17 10/30/17 10/30/17 Range/Units 09:47 10:15 11:05 WBC (3.8-10.6) k/uL Neutrophils # (1.3-7.7) k/uL Sodium (137-145) mmol/L Potassium (3.5-5.1) mmol/L Carbon Dioxide (22-30) mmol/L BUN (7-17) mg/dL Glucose (74-99) mg/dL POC Glucose (mg/dL) 313 H 302 H 300 H (75-99) mg/dL Hemoglobin A1c (4.0-6.0) % Plasma Lactic Acid Km (0.7-2.0) mmol/L 18 10/30/17 Range/Units 11:56 13:06 WBC (3.8-10.6) k/uL Neutrophils # (1.3-7.7) k/uL Sodium (137-145) mmol/L Potassium (3.5-5.1) mmol/L Carbon Dioxide (22-30) mmol/L BUN (7-17) mg/dL Glucose (74-99) mg/dL POC Glucose (mg/dL) 288 H 281 H (75-99) mg/dL Hemoglobin A1c (4.0-6.0) % Plasma Lactic Acid Km (0.7-2.0) mmol/L Thrombosis Risk Factor Assmnt - Choose All That Apply Each Factor Represents 1 point: Age 41-60 years Thrombosis Risk Factor Assessment Total Risk Factor Score: 1 Thrombosis Risk Factor Assessment Level: Low Risk Assessment and Plan Assessment: 1. Acute COPD exacerbation 2. Acute bacterial bronchitis with no evidence of pneumonia on chest x-ray 3. New onset type 2 diabetes mellitus with A1c of 9.7 4. Mild DKA 5. Essential hypertension: Blood pressure well-controlled 6. Major depressive disorder 7. DVT prophylaxis with subcu heparin Plan: - Continue IV steroids and bronchodilators - Add Mucinex twice daily - Appreciate pulmonology recommendations - Continue IV insulin drip for now - D5 half-normal saline at 75 mL per hour - Start metformin and glipizide twice daily - Repeat lab work in the morning
[2017-10-30 14:18] LABS: Glucose,Whole Blood 296 mg/dL (75-99)
[2017-10-30] MEDS: AZITHROMYCIN 500 MG TAB PO SCH (14:56)
[2017-10-30 15:29] LABS: Glucose,Whole Blood 257 mg/dL (75-99)
[2017-10-30 16:19] LABS: Glucose,Whole Blood 251 mg/dL (75-99)
[2017-10-30] MEDS: metFORMIN 500 MG TAB PO SCH (16:26)
[2017-10-30] MEDS: glipiZIDE 5 MG TAB PO SCH (16:26)
[2017-10-30] MEDS: cefTRIAXone IN SWFI 1,000 MG/10 ML SYRINGE IVP SCH (16:27)
[2017-10-30 17:17] LABS: Glucose,Whole Blood 203 mg/dL (75-99)
[2017-10-30 18:17] LABS: Glucose,Whole Blood 215 mg/dL (75-99)
[2017-10-30 20:14] LABS: Glucose,Whole Blood 229 mg/dL (75-99)
[2017-10-30] MEDS ORDERED: IPRATROPIUM-ALBUTEROL 3 ML NEB INHALATION PRN (20:30)
[2017-10-30] MEDS: MONTELUKAST 10 MG TAB PO SCH (20:56)
[2017-10-30] MEDS: guaiFENesin 600 MG TABLET.ER PO SCH (20:56)
[2017-10-30 20:57] LABS: Glucose,Whole Blood 230 mg/dL (75-99)
[2017-10-30] MEDS: HEPARIN SODIUM,PORCINE 5,000 UNIT/ML 1 ML VIAL SQ SCH (21:01)
[2017-10-30] MEDS: SODIUM CHLORIDE 0.9% 1,000 ML IV SCH (22:26)
[2017-10-30 23:14] LABS: Glucose,Whole Blood 180 mg/dL (75-99)
[2017-10-31 01:00] LABS: Glucose,Whole Blood 216 mg/dL (75-99)
[2017-10-31 03:04] LABS: Glucose,Whole Blood 237 mg/dL (75-99)
[2017-10-31] MEDS: INSULIN REGULAR 100 UNIT in SODIUM CHLORIDE 0.9% 100 ML IV SCH (03:09)
[2017-10-31 05:27] LABS: Glucose,Whole Blood 254 mg/dL (75-99)
[2017-10-31 06:02] LABS: Appearance,Urine Clear (Clear); Bilirubin,Urine Negative (Negative); Blood,Urine Negative (Negative); Color,Urine Colorless; Glucose,Urine (UA) 4+ (Negative); Ketones,Urine Negative (Negative); Leukocyte Esterase,Urine Negative (Negative); Nitrite,Urine Negative (Negative); PH, Urine 6.5 (5.0-8.0); Protein,Urine Negative (Negative); Specific Gravity,Urine 1.009 (1.001-1.035); Urobilinogen,Urine <2.0 mg/dL (<2.0)
[2017-10-31 06:16] LABS: Basophils # (A) 0.1 k/uL (0-0.2); Basophils % (A) 0 %; Eosinophils # (A) 0.1 k/uL (0-0.7); Eosinophils % (A) 0 %; HCT 38.9 % (34.0-46.0); HGB 13.4 gm/dL (11.4-16.0); Lymphocytes # (A) 2.3 k/uL (1.0-4.8); Lymphocytes % (A) 10 %; MCH 28.7 pg (25.0-35.0); MCHC 34.4 g/dL (31.0-37.0); MCV 83.3 fL (80.0-100.0); Mean Platelet Volume 7.5; Monocytes # (A) 0.6 k/uL (0-1.0); Monocytes % (A) 3 %; Neutrophils % (A) 86 %; Platelet Count 373 k/uL (150-450); RBC 4.68 m/uL (3.80-5.40); RDW 13.7 % (11.5-15.5); WBC 23.1 k/uL (3.8-10.6)
[2017-10-31 06:31] LABS: ALT 13 U/L (9-52); AST 9 U/L (14-36); Albumin 3.3 g/dL (3.5-5.0); Alkaline Phosphatase 113 U/L (38-126); Anion Gap 11 mmol/L; Blood Urea Nitrogen 18 mg/dL (7-17); Calcium 9.1 mg/dL (8.4-10.2); Carbon Dioxide 20 mmol/L (22-30); Chloride 104 mmol/L (98-107); Glucose 240 mg/dL (74-99); Potassium 4.3 mmol/L (3.5-5.1); Sodium 135 mmol/L (137-145); Total Bilirubin 0.2 mg/dL (0.2-1.3); Total Protein 6.1 g/dL (6.3-8.2)
[2017-10-31] MEDS: glipiZIDE 5 MG TAB PO SCH ×2 (06:55→16:32)
[2017-10-31] MEDS: methylPREDNISolone SOD SUCCI 125 MG/2 ML VIAL IV SCH ×2 (06:55→12:08)
[2017-10-31] MEDS: metFORMIN 500 MG TAB PO SCH ×2 (06:55→16:32)
[2017-10-31 07:06] LABS: Glucose,Whole Blood 189 mg/dL (75-99)
[2017-10-31] MEDS: AZITHROMYCIN 500 MG TAB PO SCH (08:04)
[2017-10-31] MEDS: amLODIPine 10 MG TAB PO SCH (08:04)
[2017-10-31] MEDS: HEPARIN SODIUM,PORCINE 5,000 UNIT/ML 1 ML VIAL SQ SCH ×2 (08:04→21:09)
[2017-10-31] MEDS: guaiFENesin 600 MG TABLET.ER PO SCH ×2 (08:04→21:09)
[2017-10-31] MEDS: LORATADINE 10 MG TAB PO SCH (08:04)
[2017-10-31] MEDS: CHOLECALCIFEROL 1,000 UNIT TAB PO SCH (08:05)
[2017-10-31] MEDS: ASPIRIN 81 MG PO SCH (08:05)
[2017-10-31] MEDS: DULoxetine HCL 60 MG CAPSULE.DR PO SCH (08:05)
[2017-10-31] MEDS: FLUTICASONE 50MCG/SPRAY NASAL 16GM EA NOSTRIL SCH ×2 (08:05→21:09)
[2017-10-31] MEDS: HYDROcodone/APAP 5-325MG 1 EACH TAB PO PRN (08:08)
[2017-10-31] MEDS: IPRATROPIUM-ALBUTEROL 3 ML NEB INHALATION SCH ×4 (08:21→19:50)
[2017-10-31 09:29] LABS: Glucose,Whole Blood 312 mg/dL (75-99)
[2017-10-31 11:18] LABS: Glucose,Whole Blood 225 mg/dL (75-99)
[2017-10-31 13:01] LABS: Glucose,Whole Blood 248 mg/dL (75-99)
--- NOTE | 2017-10-31 13:16 | P.PN ---
Subjective Patient is feeling better today. Her cough is improved. Blood glucose is within acceptable range still on insulin drip. Objective - Vital Signs Vital signs: Vital Signs Temp 98.3 F 10/31/17 08:00 Pulse 82 10/31/17 11:49 Resp 16 10/31/17 12:00 BP 128/59 10/31/17 11:27 Pulse Ox 92 L 10/31/17 11:27 Intake & Output 10/30/17 10/31/17 10/31/17 18:59 06:59 18:59 Intake Total 804.453 671.289 2918.408 Output Total 1400 Balance -595.547 646.424 6414.408 Weight 62 kg 64.3 kg Intake: Intake, IV Titration 84.453 699.579 621.408 Amount D5-0.45% NaCl with KCl 600 20Meq/l 1,000 ml @ 75 mls /hr IV .[id number] JOSE Rx#: [id number] Insulin Regular 100 unit 84.453 99.579 21.408 In Sodium Chloride 0.9% 100 ml @ 0.1 UNITS/KG/HR 5.95 mls/hr IV .[id number] JOSE Rx#:[id number] Sodium Chloride 0.9% 1, 600 000 ml @ 75 mls/hr IV . [id number] JOSE Rx#:[id number] Oral 720 480 Output: Urine 1400 Other: Voiding Method Toilet Toilet Toilet # Voids 0 - Exam General: The patient is awake and alert, in no distress Eye: there is normal conjunctiva bilaterally. Neck: The neck is supple, there is no JVD. Cardiovascular: Normal S1-S2, no S3-S4, no murmurs. Respiratory: Lungs with mild end expiratory wheezing Gastrointestinal: Abdomen is soft, nontender Musculoskeletal: There is no pedal edema. Neurological:. Speech is normal. Skin: Skin is warm and dry - Labs CBC & Chem 7: 10/31/17 05:53 10/31/17 05:53 Labs: Abnormal Lab Results - Last 24 Hours (Table) 10/30/17 10/30/17 10/30/17 Range/Units 13:06 14:06 15:16 WBC (3.8-10.6) k/uL Neutrophils # (1.3-7.7) k/uL Sodium (137-145) mmol/L Carbon Dioxide (22-30) mmol/L BUN (7-17) mg/dL Glucose (74-99) mg/dL POC Glucose (mg/dL) 281 H 296 H 257 H (75-99) mg/dL AST (14-36) U/L Total Protein (6.3-8.2) g/dL Albumin (3.5-5.0) g/dL Urine Glucose (UA) (Negative) 10/30/17 10/30/17 10/30/17 Range/Units 16:18 17:03 18:14 WBC (3.8-10.6) k/uL Neutrophils # (1.3-7.7) k/uL Sodium (137-145) mmol/L Carbon Dioxide (22-30) mmol/L BUN (7-17) mg/dL Glucose (74-99) mg/dL POC Glucose (mg/dL) 251 H 203 H 215 H (75-99) mg/dL AST (14-36) U/L Total Protein (6.3-8.2) g/dL Albumin (3.5-5.0) g/dL Urine Glucose (UA) (Negative) 10/30/17 10/30/17 10/30/17 Range/Units 20:02 20:55 23:06 WBC (3.8-10.6) k/uL Neutrophils # (1.3-7.7) k/uL Sodium (137-145) mmol/L Carbon Dioxide (22-30) mmol/L BUN (7-17) mg/dL Glucose (74-99) mg/dL POC Glucose (mg/dL) 229 H 230 H 180 H (75-99) mg/dL AST (14-36) U/L Total Protein (6.3-8.2) g/dL Albumin (3.5-5.0) g/dL Urine Glucose (UA) (Negative) 10/31/17 10/31/17 10/31/17 Range/Units 00:58 03:01 05:24 WBC (3.8-10.6) k/uL Neutrophils # (1.3-7.7) k/uL Sodium (137-145) mmol/L Carbon Dioxide (22-30) mmol/L BUN (7-17) mg/dL Glucose (74-99) mg/dL POC Glucose (mg/dL) 216 H 237 H 254 H (75-99) mg/dL AST (14-36) U/L Total Protein (6.3-8.2) g/dL Albumin (3.5-5.0) g/dL Urine Glucose (UA) (Negative) 10/31/17 10/31/17 10/31/17 Range/Units 05:25 05:53 05:53 WBC 23.1 H (3.8-10.6) k/uL Neutrophils # 20.0 H (1.3-7.7) k/uL Sodium 135 L (137-145) mmol/L Carbon Dioxide 20 L (22-30) mmol/L BUN 18 H (7-17) mg/dL Glucose 240 H (74-99) mg/dL POC Glucose (mg/dL) (75-99) mg/dL AST 9 L (14-36) U/L Total Protein 6.1 L (6.3-8.2) g/dL Albumin 3.3 L (3.5-5.0) g/dL Urine Glucose (UA) 4+ H (Negative) 10/31/17 10/31/17 10/31/17 Range/Units 06:53 09:01 11:15 WBC (3.8-10.6) k/uL Neutrophils # (1.3-7.7) k/uL Sodium (137-145) mmol/L Carbon Dioxide (22-30) mmol/L BUN (7-17) mg/dL Glucose (74-99) mg/dL POC Glucose (mg/dL) 189 H 312 H 225 H (75-99) mg/dL AST (14-36) U/L Total Protein (6.3-8.2) g/dL Albumin (3.5-5.0) g/dL Urine Glucose (UA) (Negative) 10/31/17 Range/Units 12:58 WBC (3.8-10.6) k/uL Neutrophils # (1.3-7.7) k/uL Sodium (137-145) mmol/L Carbon Dioxide (22-30) mmol/L BUN (7-17) mg/dL Glucose (74-99) mg/dL POC Glucose (mg/dL) 248 H (75-99) mg/dL AST (14-36) U/L Total Protein (6.3-8.2) g/dL Albumin (3.5-5.0) g/dL Urine Glucose (UA) (Negative) Microbiology - Last 24 Hours (Table) 10/29/17 11:20 Blood Culture - Preliminary Blood No Growth after 24 hours Assessment and Plan Assessment: 1. Acute COPD exacerbation 2. Acute bacterial bronchitis with no evidence of pneumonia on chest x-ray 3. New onset type 2 diabetes mellitus with A1c of 9.7 4. Mild DKA 5. Essential hypertension: Blood pressure well-controlled 6. Major depressive disorder 7. DVT prophylaxis with subcu heparin Plan: - Continue bronchodilators and change steroids to oral prednisone 40 mg daily - Continue Mucinex twice daily - Appreciate pulmonology recommendations - Discontinued IV insulin drip and switch to sliding scale - Patient was started on metformin and glipizide twice daily which she should have a new prescription for prior to discharge - Discontinue IV fluids and encourage oral hydration - Repeat lab work in the morning
[2017-10-31 15:04] LABS: Glucose,Whole Blood 334 mg/dL (75-99)
--- NOTE | 2017-10-31 15:55 | P.PN ---
Subjective Progress Note Date: 10/31/17 On 10/31/2017 the patient is being seen for a follow-up. The patient was seen for an acute COPD exacerbation. The patient is feeling better. Less short of breath which is still cough and chest is still congested. Otherwise, no fever chills or night sweats. No hemoptysis. No pleurisy. Her blood sugars under better control. Her BUN/creatinine are both stable. White cell count is up to 23 and this may be related to steroid use. The patient is on a combination of Rocephin and Zithromax as a broad-spectrum antibiotic coverage, DuoNeb nebulized treatment [id number], IV Solu-Medrol was discontinued and the patient was started on 40 mg of prednisone as part of a burst taper. Objective - Vital Signs Vital signs: Vital Signs Temp 98.3 F 10/31/17 08:00 Pulse 82 10/31/17 11:49 Resp 16 10/31/17 14:21 BP 128/59 10/31/17 11:27 Pulse Ox 92 L 10/31/17 11:27 Intake & Output 10/30/17 10/31/17 10/31/17 18:59 06:59 18:59 Intake Total 804.453 917.549 0329.408 Output Total 1400 Balance -595.547 192.841 1660.408 Weight 62 kg 64.3 kg Intake: Intake, IV Titration 84.453 699.579 621.408 Amount D5-0.45% NaCl with KCl 600 20Meq/l 1,000 ml @ 75 mls /hr IV .[id number] JOSE Rx#: [id number] Insulin Regular 100 unit 84.453 99.579 21.408 In Sodium Chloride 0.9% 100 ml @ 0.1 UNITS/KG/HR 5.95 mls/hr IV .[id number] JOSE Rx#:[id number] Sodium Chloride 0.9% 1, 600 000 ml @ 75 mls/hr IV . [id number] JOSE Rx#:[id number] Oral 720 480 Output: Urine 1400 Other: Voiding Method Toilet Toilet Toilet # Voids 0 - Exam Head exam was generally normal. There was no scleral icterus or corneal arcus. Mucous membranes were moist.Neck was supple and without jugular venous distension, thyromegaly, or carotid bruits. Carotids were easily palpable bilaterally. There was no adenopathy. Lung sounds are diminished bilaterally along with some scattered expiratory wheezes and rhonchi heard throughout the lung nicole bilaterally especially with expiratory maneuvers. No use of accessory muscles of breathing.Cardiac exam revealed the PMI to be normally situated and sized. The rhythm was regular and no extrasystoles were noted during several minutes of auscultation. The first and second heart sounds were normal and physiologic splitting of the second heart sound was noted. There were no murmurs, rubs, clicks, or gallops.Abdominal exam revealed normal bowel sounds. The abdomen was soft, non-tender, and without masses, organomegaly, or appreciable enlargement of the abdominal aorta.Examination of the extremities revealed easily palpable radial, femoral and pedal pulses. There was no cyanosis , clubbing or edema.Examination of the skin revealed no evidence of significant rashes, suspicious appearing nevi or other concerning lesions. Neurologically the patient is awake and alert and there is no focal neurological deficit. Psychiatric appropriate affect.Examination of the skin revealed no evidence of significant rashes, suspicious appearing nevi or other concerning lesions. - Labs CBC & Chem 7: 10/31/17 05:53 10/31/17 05:53 Labs: Abnormal Lab Results - Last 24 Hours (Table) 10/30/17 10/30/17 10/30/17 Range/Units 16:18 17:03 18:14 WBC (3.8-10.6) k/uL Neutrophils # (1.3-7.7) k/uL Sodium (137-145) mmol/L Carbon Dioxide (22-30) mmol/L BUN (7-17) mg/dL Glucose (74-99) mg/dL POC Glucose (mg/dL) 251 H 203 H 215 H (75-99) mg/dL AST (14-36) U/L Total Protein (6.3-8.2) g/dL Albumin (3.5-5.0) g/dL Urine Glucose (UA) (Negative) 10/30/17 10/30/17 10/30/17 Range/Units 20:02 20:55 23:06 WBC (3.8-10.6) k/uL Neutrophils # (1.3-7.7) k/uL Sodium (137-145) mmol/L Carbon Dioxide (22-30) mmol/L BUN (7-17) mg/dL Glucose (74-99) mg/dL POC Glucose (mg/dL) 229 H 230 H 180 H (75-99) mg/dL AST (14-36) U/L Total Protein (6.3-8.2) g/dL Albumin (3.5-5.0) g/dL Urine Glucose (UA) (Negative) 10/31/17 10/31/17 10/31/17 Range/Units 00:58 03:01 05:24 WBC (3.8-10.6) k/uL Neutrophils # (1.3-7.7) k/uL Sodium (137-145) mmol/L Carbon Dioxide (22-30) mmol/L BUN (7-17) mg/dL Glucose (74-99) mg/dL POC Glucose (mg/dL) 216 H 237 H 254 H (75-99) mg/dL AST (14-36) U/L Total Protein (6.3-8.2) g/dL Albumin (3.5-5.0) g/dL Urine Glucose (UA) (Negative) 10/31/17 10/31/17 10/31/17 Range/Units 05:25 05:53 05:53 WBC 23.1 H (3.8-10.6) k/uL Neutrophils # 20.0 H (1.3-7.7) k/uL Sodium 135 L (137-145) mmol/L Carbon Dioxide 20 L (22-30) mmol/L BUN 18 H (7-17) mg/dL Glucose 240 H (74-99) mg/dL POC Glucose (mg/dL) (75-99) mg/dL AST 9 L (14-36) U/L Total Protein 6.1 L (6.3-8.2) g/dL Albumin 3.3 L (3.5-5.0) g/dL Urine Glucose (UA) 4+ H (Negative) 10/31/17 10/31/17 10/31/17 Range/Units 06:53 09:01 11:15 WBC (3.8-10.6) k/uL Neutrophils # (1.3-7.7) k/uL Sodium (137-145) mmol/L Carbon Dioxide (22-30) mmol/L BUN (7-17) mg/dL Glucose (74-99) mg/dL POC Glucose (mg/dL) 189 H 312 H 225 H (75-99) mg/dL AST (14-36) U/L Total Protein (6.3-8.2) g/dL Albumin (3.5-5.0) g/dL Urine Glucose (UA) (Negative) 10/31/17 10/31/17 Range/Units 12:58 15:01 WBC (3.8-10.6) k/uL Neutrophils # (1.3-7.7) k/uL Sodium (137-145) mmol/L Carbon Dioxide (22-30) mmol/L BUN (7-17) mg/dL Glucose (74-99) mg/dL POC Glucose (mg/dL) 248 H 334 H (75-99) mg/dL AST (14-36) U/L Total Protein (6.3-8.2) g/dL Albumin (3.5-5.0) g/dL Urine Glucose (UA) (Negative) Microbiology - Last 24 Hours (Table) 10/29/17 11:20 Blood Culture - Preliminary Blood No Growth after 24 hours Assessment and Plan Plan: Assessment 1 acute COPD exacerbation with secondary shortness of breath, improving 2 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 3 smoker 4 steroid-induced hyperglycemia, rule out underlying diabetes mellitus 5 hypertension 6 chronic back pain 7 chronic vertigo Plan Continue antibiotics. Switch this patient a prednisone burst taper as of today. Consider Spiriva or a long-acting anticholinergic inhalational agents on outpatient basis regarding her COPD on outpatient basis. We'll continue to follow. continue the blood sugar control, the patient is currently on metformin 500 mg by mouth twice a day, NovoLog sliding scale coverage and Glucotrol 5 mg by mouth twice a day.
[2017-10-31] MEDS: SODIUM CHLORIDE 0.9% 1,000 ML IV SCH (16:09)
[2017-10-31] MEDS: cefTRIAXone IN SWFI 1,000 MG/10 ML SYRINGE IVP SCH (16:28)
[2017-10-31 16:37] LABS: Glucose,Whole Blood 334 mg/dL (75-99)
[2017-10-31] MEDS: INSULIN ASPART 100 UNIT/ML 1 ML 10 ML VIAL SQ SCH ×2 (16:37→21:09)
[2017-10-31 20:54] LABS: Glucose,Whole Blood 345 mg/dL (75-99)
[2017-10-31] MEDS: MONTELUKAST 10 MG TAB PO SCH (21:10)
[2017-11-01 02:04] LABS: Glucose,Whole Blood 223 mg/dL (75-99)
[2017-11-01 06:05] LABS: Glucose,Whole Blood 227 mg/dL (75-99)
[2017-11-01 06:20] LABS: HCT 38.1 % (34.0-46.0); HGB 13.2 gm/dL (11.4-16.0); MCH 28.7 pg (25.0-35.0); MCHC 34.7 g/dL (31.0-37.0); MCV 82.7 fL (80.0-100.0); Mean Platelet Volume 7.1; Platelet Count 377 k/uL (150-450); RBC 4.61 m/uL (3.80-5.40); RDW 13.7 % (11.5-15.5); WBC 23.1 k/uL (3.8-10.6)
[2017-11-01] MEDS: INSULIN ASPART 100 UNIT/ML 1 ML 10 ML VIAL SQ SCH ×4 (06:22→21:15)
[2017-11-01] MEDS: metFORMIN 500 MG TAB PO SCH ×2 (06:23→17:35)
[2017-11-01] MEDS: glipiZIDE 5 MG TAB PO SCH (06:23)
[2017-11-01 06:38] LABS: ALT 16 U/L (9-52); AST 8 U/L (14-36); Albumin 3.3 g/dL (3.5-5.0); Alkaline Phosphatase 117 U/L (38-126); Anion Gap 12 mmol/L; Blood Urea Nitrogen 17 mg/dL (7-17); Carbon Dioxide 22 mmol/L (22-30); Chloride 102 mmol/L (98-107); Glucose 205 mg/dL (74-99); Potassium 3.8 mmol/L (3.5-5.1); Sodium 136 mmol/L (137-145); Total Bilirubin 0.2 mg/dL (0.2-1.3); Total Protein 6.2 g/dL (6.3-8.2)
[2017-11-01 06:47] LABS: Band Neutrophils % 3 %; Lymphocytes # (M) 6.01 k/uL (1.0-4.8); Monocytes # (M) 0.46 k/uL (0-1.0); Neutrophils % (M) 69 %; Nucleated Red Blood Cells 0 /100 WBC (0-0); Total Cells Counted 100
[2017-11-01] MEDS: IPRATROPIUM-ALBUTEROL 3 ML NEB INHALATION SCH ×4 (07:51→20:20)
[2017-11-01] MEDS: DULoxetine HCL 60 MG CAPSULE.DR PO SCH (08:19)
[2017-11-01] MEDS: predniSONE 20 MG TAB PO SCH (08:20)
[2017-11-01] MEDS: AZITHROMYCIN 500 MG TAB PO SCH (08:20)
[2017-11-01] MEDS: CHOLECALCIFEROL 1,000 UNIT TAB PO SCH (08:20)
[2017-11-01] MEDS: ASPIRIN 81 MG PO SCH (08:20)
[2017-11-01] MEDS: FLUTICASONE 50MCG/SPRAY NASAL 16GM EA NOSTRIL SCH ×2 (08:20→20:20)
[2017-11-01] MEDS: HEPARIN SODIUM,PORCINE 5,000 UNIT/ML 1 ML VIAL SQ SCH ×2 (08:21→20:19)
[2017-11-01] MEDS: LORATADINE 10 MG TAB PO SCH (08:21)
[2017-11-01] MEDS: guaiFENesin 600 MG TABLET.ER PO SCH ×2 (08:21→20:19)
[2017-11-01] MEDS: amLODIPine 10 MG TAB PO SCH (08:21)
--- NOTE | 2017-11-01 11:30 | P.PN ---
Subjective Patient is complaining of vision loss in the right side of her visual nicole in the right eye. She mentioned that today to me. She said that it started on Sunday and has been intermittent. She denies any headache. Computed tomography scan of the brain on presentation showed no acute process but chronic encephalomalacia in the left posterior cerebral artery distribution. Objective - Vital Signs Vital signs: Vital Signs Temp 96.0 F L 11/01/17 08:00 Pulse 94 11/01/17 08:01 Resp 16 11/01/17 08:00 BP 118/63 11/01/17 08:00 Pulse Ox 94 L 11/01/17 08:00 Intake & Output 10/31/17 11/01/17 11/01/17 18:59 06:59 18:59 Intake Total 1341.408 200 240 Output Total 300 Balance 1341.408 -100 240 Weight 63.4 kg Intake: Intake, IV Titration 621.408 Amount D5-0.45% NaCl with KCl 600 20Meq/l 1,000 ml @ 75 mls /hr IV .[id number] JOSE Rx#: [id number] Insulin Regular 100 unit 21.408 In Sodium Chloride 0.9% 100 ml @ 0.1 UNITS/KG/HR 5.95 mls/hr IV .[id number] JOSE Rx#:[id number] Oral 720 200 240 Output: Urine 300 Other: Voiding Method Toilet Toilet Toilet # Voids 1 - Exam General: The patient is awake and alert, in no distress Eye: there is normal conjunctiva bilaterally. There is a right-sided hemianopia involving the right Neck: The neck is supple, there is no JVD. Cardiovascular: Normal S1-S2, no S3-S4, no murmurs. Respiratory: Lungs with mild end expiratory wheezing Gastrointestinal: Abdomen is soft, nontender Musculoskeletal: There is no pedal edema. Neurological:. Speech is normal. Skin: Skin is warm and dry - Labs CBC & Chem 7: 11/01/17 05:53 11/01/17 05:53 Labs: Abnormal Lab Results - Last 24 Hours (Table) 10/31/17 10/31/17 10/31/17 Range/Units 12:58 15:01 16:28 WBC (3.8-10.6) k/uL Neutrophils # (Manual) (1.3-7.7) k/uL Lymphocytes # (Manual) (1.0-4.8) k/uL Sodium (137-145) mmol/L Glucose (74-99) mg/dL POC Glucose (mg/dL) 248 H 334 H 334 H (75-99) mg/dL AST (14-36) U/L Total Protein (6.3-8.2) g/dL Albumin (3.5-5.0) g/dL 10/31/17 11/01/17 11/01/17 Range/Units 20:51 02:00 05:53 WBC 23.1 H (3.8-10.6) k/uL Neutrophils # (Manual) 16.60 H (1.3-7.7) k/uL Lymphocytes # (Manual) 6.01 H (1.0-4.8) k/uL Sodium (137-145) mmol/L Glucose (74-99) mg/dL POC Glucose (mg/dL) 345 H 223 H (75-99) mg/dL AST (14-36) U/L Total Protein (6.3-8.2) g/dL Albumin (3.5-5.0) g/dL 11/01/17 11/01/17 Range/Units 05:53 05:58 WBC (3.8-10.6) k/uL Neutrophils # (Manual) (1.3-7.7) k/uL Lymphocytes # (Manual) (1.0-4.8) k/uL Sodium 136 L (137-145) mmol/L Glucose 205 H (74-99) mg/dL POC Glucose (mg/dL) 227 H (75-99) mg/dL AST 8 L (14-36) U/L Total Protein 6.2 L (6.3-8.2) g/dL Albumin 3.3 L (3.5-5.0) g/dL Microbiology - Last 24 Hours (Table) 10/29/17 11:20 Blood Culture - Preliminary Blood No Growth after 48 hours Assessment and Plan Assessment: 1. Acute COPD exacerbation 2. Acute bacterial bronchitis with no evidence of pneumonia on chest x-ray 3. New onset type 2 diabetes mellitus with A1c of 9.7 4. Mild DKA 5. Essential hypertension: Blood pressure well-controlled 6. Major depressive disorder 7. DVT prophylaxis with subcu heparin 8. 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 Computed tomography scan of the chest on presentation showed no acute intracranial findings. There is encephalomalacia noted in the distribution of the left posterior cerebral artery no compared to prior imaging in December 2015 and may represent an ischemic events. I would consult neurology for further evaluation. Plan: - Continue bronchodilators and oral prednisone 40 mg daily - Continue Mucinex twice daily - Appreciate pulmonology recommendations - Patient was started on metformin and glipizide twice daily which will be increased in dose today is in poor control of her blood glucose - Continue sliding scale insulin - Repeat lab work in the morning - Wean off O2 and check oxygen on room air at rest with ambulation
[2017-11-01 12:05] LABS: Glucose,Whole Blood 228 mg/dL (75-99)
--- NOTE | 2017-11-01 14:43 | P.PN ---
Subjective Progress Note Date: 11/01/17 On 11/01/2016, the patient is having some limited hoarseness. She is also complaining of cough and. No significant bronchospasm and wheezing. No fever chills or night sweats. No nausea or vomiting. She is ambulating. No oropharyngeal thrush. She remains on a combination of Rocephin and Zithromax. She is also on steroids in the patient has been switched to a prednisone burst taper. This which was done today. No other complaints otherwise for now. She is taking Mucinex for cough. Blood sugars is under better control for now with a sliding scale coverage and the patient is also on a combination of Glucotrol and metformin. Objective - Vital Signs Vital signs: Vital Signs Temp 96.3 F L 11/01/17 12:00 Pulse 101 H 11/01/17 12:00 Resp 16 11/01/17 12:00 BP 131/60 11/01/17 12:00 Pulse Ox 94 L 11/01/17 08:00 Intake & Output 10/31/17 11/01/17 11/01/17 18:59 06:59 18:59 Intake Total 1341.408 200 340 Output Total 300 Balance 1341.408 -100 340 Weight 63.4 kg Intake: Intake, IV Titration 621.408 Amount D5-0.45% NaCl with KCl 600 20Meq/l 1,000 ml @ 75 mls /hr IV .[id number] JOSE Rx#: [id number] Insulin Regular 100 unit 21.408 In Sodium Chloride 0.9% 100 ml @ 0.1 UNITS/KG/HR 5.95 mls/hr IV .[id number] JOSE Rx#:[id number] Oral 720 200 340 Output: Urine 300 Other: Voiding Method Toilet Toilet Toilet # Voids 1 3 - Exam Head exam was generally normal. There was no scleral icterus or corneal arcus. Mucous membranes were moist.Neck was supple and without jugular venous distension, thyromegaly, or carotid bruits. Carotids were easily palpable bilaterally. There was no adenopathy. Lung sounds are diminished bilaterally along with some scattered expiratory wheezes and rhonchi heard throughout the lung nicole bilaterally especially with expiratory maneuvers. No use of accessory muscles of breathing.Cardiac exam revealed the PMI to be normally situated and sized. The rhythm was regular and no extrasystoles were noted during several minutes of auscultation. The first and second heart sounds were normal and physiologic splitting of the second heart sound was noted. There were no murmurs, rubs, clicks, or gallops.Abdominal exam revealed normal bowel sounds. The abdomen was soft, non-tender, and without masses, organomegaly, or appreciable enlargement of the abdominal aorta.Examination of the extremities revealed easily palpable radial, femoral and pedal pulses. There was no cyanosis , clubbing or edema.Examination of the skin revealed no evidence of significant rashes, suspicious appearing nevi or other concerning lesions. Neurologically the patient is awake and alert and there is no focal neurological deficit. Psychiatric appropriate affect.Examination of the skin revealed no evidence of significant rashes, suspicious appearing nevi or other concerning lesions. - Labs CBC & Chem 7: 11/01/17 05:53 11/01/17 05:53 Labs: Abnormal Lab Results - Last 24 Hours (Table) 10/31/17 10/31/17 10/31/17 Range/Units 15:01 16:28 20:51 WBC (3.8-10.6) k/uL Neutrophils # (Manual) (1.3-7.7) k/uL Lymphocytes # (Manual) (1.0-4.8) k/uL Sodium (137-145) mmol/L Glucose (74-99) mg/dL POC Glucose (mg/dL) 334 H 334 H 345 H (75-99) mg/dL AST (14-36) U/L Total Protein (6.3-8.2) g/dL Albumin (3.5-5.0) g/dL 11/01/17 11/01/17 11/01/17 Range/Units 02:00 05:53 05:53 WBC 23.1 H (3.8-10.6) k/uL Neutrophils # (Manual) 16.60 H (1.3-7.7) k/uL Lymphocytes # (Manual) 6.01 H (1.0-4.8) k/uL Sodium 136 L (137-145) mmol/L Glucose 205 H (74-99) mg/dL POC Glucose (mg/dL) 223 H (75-99) mg/dL AST 8 L (14-36) U/L Total Protein 6.2 L (6.3-8.2) g/dL Albumin 3.3 L (3.5-5.0) g/dL 11/01/17 11/01/17 Range/Units 05:58 12:03 WBC (3.8-10.6) k/uL Neutrophils # (Manual) (1.3-7.7) k/uL Lymphocytes # (Manual) (1.0-4.8) k/uL Sodium (137-145) mmol/L Glucose (74-99) mg/dL POC Glucose (mg/dL) 227 H 228 H (75-99) mg/dL AST (14-36) U/L Total Protein (6.3-8.2) g/dL Albumin (3.5-5.0) g/dL Microbiology - Last 24 Hours (Table) 10/29/17 11:20 Blood Culture - Preliminary Blood No Growth after 48 hours Assessment and Plan Plan: Assessment 1 acute COPD exacerbation with secondary shortness of breath, improving 2 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 3 smoker 4 steroid-induced hyperglycemia, rule out underlying diabetes mellitus 5 hypertension 6 chronic back pain 7 chronic vertigo Plan Continue prednisone burst taper. Clinically improving. Discharge planning is in progress.
[2017-11-01] MEDS: cefTRIAXone IN SWFI 1,000 MG/10 ML SYRINGE IVP SCH (15:20)
[2017-11-01 16:49] LABS: Glucose,Whole Blood 315 mg/dL (75-99)
[2017-11-01] MEDS: glipiZIDE 10 MG TAB PO SCH (17:36)
[2017-11-01] MEDS: MONTELUKAST 10 MG TAB PO SCH (20:19)
[2017-11-01] MEDS: HYDROcodone/APAP 5-325MG 1 EACH TAB PO PRN (20:23)
--- NOTE | 2017-11-01 20:33 | P.CNNES ---
History of Present Illness Consult date: 11/01/17 History of Present Illness: The patient is a 62-year-old right-handed female who was brought into the ER because of elevated blood glucose of 502. She has also been having recent increased thirst and urination. She presented to the emergency room on October 29. Neurology was requested to see the patient today regarding visual loss. The patient reports that since last Sunday she's been having disturbance of vision consisting of loss of vision in the right eye on the right side. This apparently comes and goes. Recently it has been staying for the last 1 or 2 days without going. She describes a headache in the forehead and pain behind both eyes. She also describes pain in the temples. He reports that she has a history of cerebral aneurysm. Reports that this was first noted on a scan in 2013. States that she was [facility] yearly for evaluation of aneurysm in that she was recently seen there in August. Patient's visual disturbances new and she has not noticed it prior to Sunday. had a CTA in July 2017 which showed diminution of the left vertebral artery. He had a CT brain during this admission which showed encephalomalacia in the distribution of the left posterior cerebral artery which appears to be from infarct. A new development since the previous scan of 01/01/2016. Review of Systems All systems: negative Constitutional: Denies chills, Denies fever Eyes: denies blurred vision, denies pain Ears, nose, mouth and throat: Denies headache, Denies sore throat Cardiovascular: Denies chest pain, Denies shortness of breath Respiratory: Denies cough Musculoskeletal: Reports as per HPI Integumentary: Denies pruritus, Denies rash Neurological: Denies numbness, Denies weakness Psychiatric: Denies anxiety, Denies depression Past Medical History Past Medical History: Hypertension Additional Past Medical History / Comment(s): COPD, chronic back pain, Vertigo, hypertension History of Any Multi-Drug Resistant Organisms: None Reported Past Surgical History: Cholecystectomy, Heart Catheterization Additional Past Surgical History / Comment(s): epidural injections, rhizotomy involving the lumbar spine for chronic back pain, cardiac catheterization, cholecystectomy Past Anesthesia/Blood Transfusion Reactions: Motion Sickness Past Psychological History: Anxiety Smoking Status: Current every day smoker Past Alcohol Use History: None Reported Additional Past Alcohol Use History / Comment(s): STARTED SMOKING AT AGE 28 IPPD HAS RECENTLY CUT DOWN TO 3 CIG/DAY Past Drug Use History: None Reported - Past Family History Father Family Medical History: Hypertension, Myocardial Infarction (AR) Additional Family Medical History / Comment(s): AT AGE 63 Mother Family Medical History: Diabetes Mellitus, Dialysis Additional Family Medical History / Comment(s): MOM UNK AGE-COMPLICATIONS FROM DIABETES Sister(s) Family Medical History: Diabetes Mellitus Medications and Allergies Home Medications Medication Instructions Recorded Confirmed Type Loratadine [Claritin] 10 mg PO DAILY 01/01/16 10/29/17 History Meclizine HCl 25 mg PO Q6H PRN 01/01/16 10/29/17 History Montelukast [Singulair] 10 mg PO HS 01/01/16 10/29/17 History Cholecalciferol [Vitamin D3] 1,000 unit PO DAILY 01/02/16 10/29/17 History Fluticasone Nasal [place] [Flonase 1 spray EA NOSTRIL BID 01/02/16 10/29/17 History Nasal [place]] HYDROcodone/APAP 5-325MG [[place] 1 tab PO TID PRN 01/02/16 10/29/17 History 5-325] amLODIPine [Norvasc] 10 mg PO DAILY 01/02/16 10/29/17 History Albuterol Sulfate [Proair Hfa] 2 puff INHALATION RT-Q4H PRN 10/29/17 10/29/17 History Aspirin EC [Ecotrin Low Dose] 81 mg PO DAILY 10/29/17 10/29/17 History Chlorzoxazone [Parafon Forte DSC] 500 mg PO Q6HR PRN 10/29/17 10/29/17 History DULoxetine HCL [Cymbalta] 60 mg PO DAILY 10/29/17 10/29/17 History Fluticasone Propionate [Flovent 1 puff INHALATION RT-BID 10/29/17 10/29/17 History Hfa 220MCG] hydrOXYzine PAMOATE [Vistaril] 50 mg PO TID PRN 10/29/17 10/29/17 History hydrOXYzine PAMOATE [Vistaril] 100 mg PO HS PRN 10/29/17 10/29/17 History Allergies Allergy/AdvReac Type Severity Reaction Status Date / Time baclofen Allergy Unknown Verified 10/29/17 12:05 gabapentin Allergy Anaphylaxis Verified 10/29/17 12:05 naproxen Allergy Swelling Verified 10/29/17 12:05 Physical Examination - Vital Signs Vital Signs: Vital Signs Temp Pulse Pulse Resp BP Pulse Ox 11/01/17 20:20 94 11/01/17 16:13 92 11/01/17 16:05 92 11/01/17 16:00 96.4 F L 107 H 16 131/73 92 L 11/01/17 13:50 88 L 11/01/17 12:00 96.3 F L 101 H 16 131/60 11/01/17 11:49 96 11/01/17 11:40 90 11/01/17 08:01 94 11/01/17 08:00 96.0 F L 93 16 118/63 94 L 11/01/17 07:53 90 94 L 11/01/17 04:00 98 F 67 17 167/77 94 L 11/01/17 00:00 98.5 F 95 17 140/69 96 Intake and Output 11/01/17 11/01/17 11/01/17 06:59 14:59 22:59 Intake Total 200 580 240 Output Total 300 Balance -100 580 240 Intake: Oral 200 580 240 Output: Urine 300 Other: Voiding Method Toilet Toilet Toilet # Voids 1 3 Weight 63.4 kg - Constitutional General appearance: average body habitus, cooperative - EENT EENT: PERRL, hearing intact - Respiratory Respiratory: lungs clear - Cardiovascular Cardiovascular: regular rate - Integumentary Integumentary: normal - Neurologic Neurologic examination mental status she was awake alert and oriented 3 her speech was fluent there is no aphasia or dysarthria next Cranial nerve examination reveals a right homonymous hemianopsia X Motor examination revealed no focal weakness X ready of [place] figure to nose [id number] intact next Deep tendon reflexes were symmetric next Plantar response was flexor bilaterally Cranial nerve examination: PERRL, EOMI, face symmetric, tongue midline Speech examination: intact Detailed motor examination: grossly full strength in all extremities Detailed sensory examination: intact Reflex and gait examination: intact - Psychiatric Psychiatric: mood/affect appropriate Results - Laboratory Findings CBC and BMP: 11/01/17 05:53 11/01/17 05:53 Abnormal Lab Findings: Abnormal Labs 10/29/17 10/29/17 10/29/17 11:20 11:20 11:20 WBC 22.5 H RBC 5.50 H Hct 46.6 H Neutrophils # 17.4 H Neutrophils # (Manual) Lymphocytes # (Manual) APTT 21.0 L Sodium Potassium Chloride Carbon Dioxide BUN Creatinine Glucose POC Glucose (mg/dL) Hemoglobin A1c 9.7 H Plasma Lactic Acid Km Calcium AST Alkaline Phosphatase Total Protein Albumin Urine Glucose (UA) 10/29/17 10/29/17 10/29/17 11:20 11:20 12:27 WBC RBC Hct Neutrophils # Neutrophils # (Manual) Lymphocytes # (Manual) APTT Sodium 133 L Potassium 5.4 H Chloride 92 L Carbon Dioxide 21 L BUN 30 H Creatinine 1.27 H Glucose 517 H* POC Glucose (mg/dL) 485 H Hemoglobin A1c Plasma Lactic Acid Km 4.0 H* Calcium 10.8 H AST 12 L Alkaline Phosphatase 191 H Total Protein 8.6 H Albumin Urine Glucose (UA) 10/29/17 10/29/17 10/29/17 13:56 15:37 17:05 WBC RBC Hct Neutrophils # Neutrophils # (Manual) Lymphocytes # (Manual) APTT Sodium Potassium Chloride Carbon Dioxide BUN Creatinine Glucose POC Glucose (mg/dL) 386 H 303 H 392 H Hemoglobin A1c Plasma Lactic Acid Km Calcium AST Alkaline Phosphatase Total Protein Albumin Urine Glucose (UA) 10/29/17 10/29/17 10/29/17 17:55 20:50 21:11 WBC 16.1 H RBC Hct Neutrophils # 14.0 H Neutrophils # (Manual) Lymphocytes # (Manual) APTT Sodium Potassium Chloride Carbon Dioxide BUN Creatinine Glucose POC Glucose (mg/dL) 233 H Hemoglobin A1c Plasma Lactic Acid Km 4.5 H* Calcium AST Alkaline Phosphatase Total Protein Albumin Urine Glucose (UA) 10/29/17 10/29/17 10/29/17 21:11 21:41 22:59 WBC RBC Hct Neutrophils # Neutrophils # (Manual) Lymphocytes # (Manual) APTT Sodium 133 L Potassium Chloride Carbon Dioxide 21 L BUN 26 H Creatinine Glucose 264 H POC Glucose (mg/dL) 321 H 216 H Hemoglobin A1c Plasma Lactic Acid Km Calcium AST Alkaline Phosphatase Total Protein Albumin Urine Glucose (UA) 10/29/17 10/30/17 10/30/17 23:15 00:16 00:35 WBC RBC Hct Neutrophils # Neutrophils # (Manual) Lymphocytes # (Manual) APTT Sodium 135 L Potassium Chloride Carbon Dioxide BUN 24 H Creatinine Glucose 272 H POC Glucose (mg/dL) 268 H Hemoglobin A1c Plasma Lactic Acid Km 3.3 H* Calcium AST Alkaline Phosphatase Total Protein Albumin Urine Glucose (UA) 10/30/17 10/30/17 10/30/17 01:20 02:02 03:39 WBC RBC Hct Neutrophils # Neutrophils # (Manual) Lymphocytes # (Manual) APTT Sodium Potassium Chloride Carbon Dioxide BUN Creatinine Glucose POC Glucose (mg/dL) 291 H 280 H 253 H Hemoglobin A1c Plasma Lactic Acid Km Calcium AST Alkaline Phosphatase Total Protein Albumin Urine Glucose (UA) 10/30/17 10/30/17 10/30/17 04:46 05:45 06:55 WBC RBC Hct Neutrophils # Neutrophils # (Manual) Lymphocytes # (Manual) APTT Sodium 134 L Potassium 5.7 H Chloride Carbon Dioxide 20 L BUN 22 H Creatinine Glucose 234 H POC Glucose (mg/dL) 198 H 152 H Hemoglobin A1c Plasma Lactic Acid Km Calcium AST Alkaline Phosphatase Total Protein Albumin Urine Glucose (UA) 10/30/17 10/30/17 10/30/17 07:56 09:47 10:15 WBC RBC Hct Neutrophils # Neutrophils # (Manual) Lymphocytes # (Manual) APTT Sodium Potassium Chloride Carbon Dioxide BUN Creatinine Glucose POC Glucose (mg/dL) 143 H 313 H 302 H Hemoglobin A1c Plasma Lactic Acid Km Calcium AST Alkaline Phosphatase Total Protein Albumin Urine Glucose (UA) 10/30/17 10/30/17 10/30/17 11:05 11:56 13:06 WBC RBC Hct Neutrophils # Neutrophils # (Manual) Lymphocytes # (Manual) APTT Sodium Potassium Chloride Carbon Dioxide BUN Creatinine Glucose POC Glucose (mg/dL) 300 H 288 H 281 H Hemoglobin A1c Plasma Lactic Acid Km Calcium AST Alkaline Phosphatase Total Protein Albumin Urine Glucose (UA) 10/30/17 10/30/17 10/30/17 14:06 15:16 16:18 WBC RBC Hct Neutrophils # Neutrophils # (Manual) Lymphocytes # (Manual) APTT Sodium Potassium Chloride Carbon Dioxide BUN Creatinine Glucose POC Glucose (mg/dL) 296 H 257 H 251 H Hemoglobin A1c Plasma Lactic Acid Km Calcium AST Alkaline Phosphatase Total Protein Albumin Urine Glucose (UA) 10/30/17 10/30/17 10/30/17 17:03 18:14 20:02 WBC RBC Hct Neutrophils # Neutrophils # (Manual) Lymphocytes # (Manual) APTT Sodium Potassium Chloride Carbon Dioxide BUN Creatinine Glucose POC Glucose (mg/dL) 203 H 215 H 229 H Hemoglobin A1c Plasma Lactic Acid Km Calcium AST Alkaline Phosphatase Total Protein Albumin Urine Glucose (UA) 10/30/17 10/30/17 10/31/17 20:55 23:06 00:58 WBC RBC Hct Neutrophils # Neutrophils # (Manual) Lymphocytes # (Manual) APTT Sodium Potassium Chloride Carbon Dioxide BUN Creatinine Glucose POC Glucose (mg/dL) 230 H 180 H 216 H Hemoglobin A1c Plasma Lactic Acid Km Calcium AST Alkaline Phosphatase Total Protein Albumin Urine Glucose (UA) 10/31/17 10/31/17 10/31/17 03:01 05:24 05:25 WBC RBC Hct Neutrophils # Neutrophils # (Manual) Lymphocytes # (Manual) APTT Sodium Potassium Chloride Carbon Dioxide BUN Creatinine Glucose POC Glucose (mg/dL) 237 H 254 H Hemoglobin A1c Plasma Lactic Acid Km Calcium AST Alkaline Phosphatase Total Protein Albumin Urine Glucose (UA) 4+ H 10/31/17 10/31/17 10/31/17 05:53 05:53 06:53 WBC 23.1 H RBC Hct Neutrophils # 20.0 H Neutrophils # (Manual) Lymphocytes # (Manual) APTT Sodium 135 L Potassium Chloride Carbon Dioxide 20 L BUN 18 H Creatinine Glucose 240 H POC Glucose (mg/dL) 189 H Hemoglobin A1c Plasma Lactic Acid Km Calcium AST 9 L Alkaline Phosphatase Total Protein 6.1 L Albumin 3.3 L Urine Glucose (UA) 10/31/17 10/31/17 10/31/17 09:01 11:15 12:58 WBC RBC Hct Neutrophils # Neutrophils # (Manual) Lymphocytes # (Manual) APTT Sodium Potassium Chloride Carbon Dioxide BUN Creatinine Glucose POC Glucose (mg/dL) 312 H 225 H 248 H Hemoglobin A1c Plasma Lactic Acid Km Calcium AST Alkaline Phosphatase Total Protein Albumin Urine Glucose (UA) 10/31/17 10/31/17 10/31/17 15:01 16:28 20:51 WBC RBC Hct Neutrophils # Neutrophils # (Manual) Lymphocytes # (Manual) APTT Sodium Potassium Chloride Carbon Dioxide BUN Creatinine Glucose POC Glucose (mg/dL) 334 H 334 H 345 H Hemoglobin A1c Plasma Lactic Acid Km Calcium AST Alkaline Phosphatase Total Protein Albumin Urine Glucose (UA) 11/01/17 11/01/17 11/01/17 02:00 05:53 05:53 WBC 23.1 H RBC Hct Neutrophils # Neutrophils # (Manual) 16.60 H Lymphocytes # (Manual) 6.01 H APTT Sodium 136 L Potassium Chloride Carbon Dioxide BUN Creatinine Glucose 205 H POC Glucose (mg/dL) 223 H Hemoglobin A1c Plasma Lactic Acid Km Calcium AST 8 L Alkaline Phosphatase Total Protein 6.2 L Albumin 3.3 L Urine Glucose (UA) 11/01/17 11/01/17 11/01/17 05:58 12:03 16:46 WBC RBC Hct Neutrophils # Neutrophils # (Manual) Lymphocytes # (Manual) APTT Sodium Potassium Chloride Carbon Dioxide BUN Creatinine Glucose POC Glucose (mg/dL) 227 H 228 H 315 H Hemoglobin A1c Plasma Lactic Acid Km Calcium AST Alkaline Phosphatase Total Protein Albumin Urine Glucose (UA) Assessment and Plan (1) Stroke Current Visit: Yes Status: Acute Code(s): I63.9 - CEREBRAL INFARCTION, UNSPECIFIED SNOMED Code(s): 092851490 (2) Visual field defect Current Visit: Yes Status: Acute SNOMED Code(s): 71917590 (3) History of cerebral aneurysm repair Current Visit: Yes Status: Acute SNOMED Code(s): 146568176 Plan: The patient is a 62-year-old woman admitted to the hospital with elevated blood glucose of 502. She states she's been sick recently. She's been coughing. On Fridays about 5 or 6 days ago she was coughing hard and then she developed this visual disturbance which she described as loss of temporal vision in the right eye. On neurologic examination however the patient has a homonymous right hemianopsia. On CAT scan she has had a previous left posterior cerebral artery infarct. Recommend carotid ultrasound and echocardiogram. Recommend MRI and MRA for further evaluation of the aneurysm.
[2017-11-01 21:09] LABS: Glucose,Whole Blood 209 mg/dL (75-99)
--- NOTE | 2017-11-01 21:30 | US ---
EXAMINATION TYPE: US carotid duplex BILAT DATE OF EXAM: 11/01/2017 COMPARISON: NONE CLINICAL HISTORY: Stroke. TIA EXAM MEASUREMENTS: RIGHT: Peak Systolic Velocity (PSV) cm/sec ----- Right CCA: 88.9 ----- Right ICA: 108.2 ----- Right ECA: 57.0 ICA/CCA ratio: 1.2 RIGHT: End Diastole cm/sec ----- Right CCA: 16.4 ----- Right ICA: 21.5 ----- Right ECA: 16.4 LEFT: Peak Systolic Velocity (PSV) cm/sec ----- Left CCA: 101.6 ----- Left ICA: 80.6 ----- Left ECA: 181.0 ICA/CCA ratio: 0.8 LEFT: End Diastole cm/sec ----- Left CCA: 17.6 ----- Left ICA: 12.8 ----- Left ECA: 23.0 VERTEBRALS (direction of flow): Right Vertebral: Antegrade Left Vertebral: Antegrade Rhythm: Normal Bilateral vessels dive deep. No significant stenosis seen Grayscale, color Doppler, spectral Doppler imaging performed of the carotid arteries IMPRESSION: No hemodynamic significant stenosis of the proximal internal carotid arteries bilaterall y by Doppler criteria, an indirect measurement of carotid stenosis
[2017-11-02 02:05] LABS: Glucose,Whole Blood 127 mg/dL (75-99)
[2017-11-02 06:09] LABS: Glucose,Whole Blood 112 mg/dL (75-99)
[2017-11-02] MEDS: INSULIN ASPART 100 UNIT/ML 1 ML 10 ML VIAL SQ SCH ×4 (06:34→21:20)
[2017-11-02 06:56] LABS: ALT 18 U/L (9-52); AST 9 U/L (14-36); Albumin 3.4 g/dL (3.5-5.0); Alkaline Phosphatase 109 U/L (38-126); Anion Gap 9 mmol/L; Blood Urea Nitrogen 18 mg/dL (7-17); Carbon Dioxide 26 mmol/L (22-30); Chloride 101 mmol/L (98-107); Glucose 105 mg/dL (74-99); Potassium 3.7 mmol/L (3.5-5.1); Sodium 136 mmol/L (137-145); Total Bilirubin 0.2 mg/dL (0.2-1.3); Total Protein 6.3 g/dL (6.3-8.2)
[2017-11-02] MEDS: metFORMIN 500 MG TAB PO SCH ×2 (07:05→17:12)
[2017-11-02] MEDS: glipiZIDE 10 MG TAB PO SCH ×2 (07:05→17:11)
[2017-11-02 07:42] LABS: HGB 13.6 gm/dL (11.4-16.0); MCH 28.7 pg (25.0-35.0); MCV 84.4 fL (80.0-100.0); Mean Platelet Volume 7.7; Platelet Count 384 k/uL (150-450); RBC 4.75 m/uL (3.80-5.40); RDW 13.9 % (11.5-15.5); WBC 19.7 k/uL (3.8-10.6)
[2017-11-02] MEDS: DULoxetine HCL 60 MG CAPSULE.DR PO SCH (08:32)
[2017-11-02] MEDS: amLODIPine 10 MG TAB PO SCH (08:32)
[2017-11-02] MEDS: ASPIRIN 81 MG PO SCH (08:32)
[2017-11-02] MEDS: CHOLECALCIFEROL 1,000 UNIT TAB PO SCH (08:32)
[2017-11-02] MEDS: AZITHROMYCIN 500 MG TAB PO SCH (08:32)
[2017-11-02] MEDS: guaiFENesin 600 MG TABLET.ER PO SCH ×2 (08:33→21:21)
[2017-11-02] MEDS: HEPARIN SODIUM,PORCINE 5,000 UNIT/ML 1 ML VIAL SQ SCH ×2 (08:33→21:20)
[2017-11-02] MEDS: LORATADINE 10 MG TAB PO SCH (08:33)
[2017-11-02] MEDS: predniSONE 20 MG TAB PO SCH (08:34)
[2017-11-02] MEDS: IPRATROPIUM-ALBUTEROL 3 ML NEB INHALATION SCH ×4 (08:43→20:50)
[2017-11-02 08:57] LABS: Lymphocytes # (M) 7.88 k/uL (1.0-4.8); Metamyelocytes % 1 %; Monocytes # (M) 0.59 k/uL (0-1.0); Myelocytes # (M) 0.59 k/uL (0); Myelocytes % 3 %; Neutrophils # (M) 10.44 k/uL (1.3-7.7); Neutrophils % (M) 53 %; Nucleated Red Blood Cells 0 /100 WBC (0-0); Total Cells Counted 100
[2017-11-02 11:07] LABS: Glucose,Whole Blood 180 mg/dL (75-99)
--- NOTE | 2017-11-02 12:10 | P.PN ---
Subjective Progress Note Date: 11/02/17 Patient presented with cough and shortness of breath. She is treated for a COPD exacerbation and bronchitis. [facility] service is following. Yesterday she mentioned that she has been having loss in the vision on the right side of her eye. This started on Sunday and has been intermittent didn't she had also been having headache at that time. Headache has resolved. Computed tomography scan of the brain showed no acute process but a chronic encephalomalacia in the left posterior cerebral artery distribution for a prior infarct. Due to these vision changes neurology was consulted. They've ordered an echo carotid ultrasound and an MRI and MRA of the brain. Patient reports that she still has vision loss on the right side of the right eye and also some vision loss on the inside of the left eye. Her breathing is showing improvement. She's on prednisone. Cough is also improving. Denies any chest pain. Denies any weakness in the extremities. Denies any nausea vomiting bowel movement changes or urinary symptoms. Objective - Vital Signs Vital signs: Vital Signs Temp 97.0 F L 11/02/17 08:00 Pulse 92 11/02/17 09:01 Resp 18 11/02/17 08:00 BP 131/65 11/02/17 08:00 Pulse Ox 93 L 11/02/17 08:00 Intake & Output 11/01/17 11/02/17 11/02/17 18:59 06:59 18:59 Intake Total 820 840 360 Balance 820 840 360 Weight 58.6 kg Intake: Oral 820 840 360 Other: Voiding Method Toilet Toilet # Voids 3 3 - Exam Head normocephalic Neck supple Lungs improvement in air movement Heart regular rate and rhythm S1-S2, no rub or gallop Abdomen is soft nontender nondistended positive bowel sounds no hepatosplenomegaly Extremities no edema Neuro alert and orientated to 3 - Labs CBC & Chem 7: 11/02/17 06:01 11/02/17 06:01 Labs: Abnormal Lab Results - Last 24 Hours (Table) 11/01/17 11/01/17 11/01/17 Range/Units 12:03 16:46 21:07 WBC (3.8-10.6) k/uL Neutrophils # (Manual) (1.3-7.7) k/uL Lymphocytes # (Manual) (1.0-4.8) k/uL Metamyelocytes # (Man) (0) k/uL Myelocytes # (Manual) (0) k/uL Sodium (137-145) mmol/L BUN (7-17) mg/dL Glucose (74-99) mg/dL POC Glucose (mg/dL) 228 H 315 H 209 H (75-99) mg/dL AST (14-36) U/L Albumin (3.5-5.0) g/dL 11/02/17 11/02/17 11/02/17 Range/Units 02:01 06:01 06:01 WBC 19.7 H (3.8-10.6) k/uL Neutrophils # (Manual) 10.44 H (1.3-7.7) k/uL Lymphocytes # (Manual) 7.88 H (1.0-4.8) k/uL Metamyelocytes # (Man) 0.20 H (0) k/uL Myelocytes # (Manual) 0.59 H (0) k/uL Sodium 136 L (137-145) mmol/L BUN 18 H (7-17) mg/dL Glucose 105 H (74-99) mg/dL POC Glucose (mg/dL) 127 H (75-99) mg/dL AST 9 L (14-36) U/L Albumin 3.4 L (3.5-5.0) g/dL 11/02/17 11/02/17 Range/Units 06:06 11:04 WBC (3.8-10.6) k/uL Neutrophils # (Manual) (1.3-7.7) k/uL Lymphocytes # (Manual) (1.0-4.8) k/uL Metamyelocytes # (Man) (0) k/uL Myelocytes # (Manual) (0) k/uL Sodium (137-145) mmol/L BUN (7-17) mg/dL Glucose (74-99) mg/dL POC Glucose (mg/dL) 112 H 180 H (75-99) mg/dL AST (14-36) U/L Albumin (3.5-5.0) g/dL Microbiology - Last 24 Hours (Table) 10/29/17 11:20 Blood Culture - Preliminary Blood No Growth after 72 hours Assessment and Plan Assessment: 1. Acute COPD exacerbation: Currently on oral prednisone. Continue bronchodilators. Continue Mucinex. Pulmonary service following 2. Acute bacterial bronchitis with no evidence of pneumonia on chest x-ray: Continue Rocephin and azithromycin 3. New onset type 2 diabetes mellitus with A1c of 9.7. Patient was started on metformin and glipizide during this admission. She has been seen by the visual educator. Blood sugars are showing improvement. Continue sliding scale coverage 4. Mild DKA on presentation 5. Essential hypertension: Blood pressure well-controlled 6. Major depressive disorder 7. DVT prophylaxis with subcu heparin 8. 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 Computed tomography scan of the chest on presentation showed no acute intracranial findings. There is encephalomalacia noted in the distribution of the left posterior cerebral artery no compared to prior imaging in December 2015 and may represent an ischemic events. Patient seen by neurology. They have ordered MRI and MRA of the brain echocardiogram and carotid Doppler. I performed an examination of the patient and discussed their management with the physician Dividing Machine Operator. I have reviewed the Physician Dividing Machine Operator's notes and agree with the documented findings and plan of care
--- NOTE | 2017-11-02 13:23 | MR ---
EXAMINATION TYPE: MR angio head wo con DATE OF EXAM: 11/02/2017 COMPARISON: 08/24/2017 CT angio neck and 10/29/2017 CT brain wo con HISTORY: headache, dizziness, sinus infection, and left side ear pain, stroke TECHNIQUE: Time of flight images focusing on the [place] of [place] were performed without contrast.. 2-D and 3-D postprocessing imaging is performed. FINDINGS: There appears to be near complete occlusion with subsequent total occlusion of the left vertebral art harika. Flow is seen within the V3 segment with diminutive flow in the proximal portion of the V4 segmen t and no flow within the distal aspect of the V4 segment extending over approximately 1 cm. No intima l flap is seen to confirm dissection, however on the MR brain height T2 signal indicating lack of froylan w voids appear somewhat circumferential and is highly suspicious for dissection. There is a small saccular aneurysm at the branch point of the right MCA between the M1 and M2 segment s measuring 2 mm. As seen on 3-D image 1 and [id number] axial image 109. Remainder of the intracranial vasculature are unremarkable IMPRESSION: 1. Near complete occlusion and subsequent total occlusion of a short segment of the left vertebral ar glenna involving the V4 segment highly concerning for dissection although thrombosis/embolic occlusion remains in the differential but is considered less likely. 2. Small saccular aneurysm at the branch point of the M1 and M2 segments on the right measuring 2 mm.
--- NOTE | 2017-11-02 13:42 | MR ---
EXAMINATION TYPE: MR brain wo con DATE OF EXAM: 11/02/2017 COMPARISON: 10/29/2017 and 08/24/2017 HISTORY: headache, dizziness, sinus infection, and left side ear pain, stroke TECHNIQUE: Multiplanar, multisequence images of the brain and brainstem is performed without intravenous contras t. FINDINGS: Diffusion weighted images demonstrate no restricted diffusion with mild ADC hypointensity i n the posterior left parietal and occipital lobes in the distribution of the left PASSENGER RATE CLERK. Correspondingl y there is increased T2/FLAIR signal in this region that appears overall gyriform but involves both g ray and white matter. Additionally there is increased T2/IR appearing eccentric signal within the V4 segment of the left vertebral artery concerning for dissection or occlusion compatible with the MRA i mages of the same day. This is best demonstrated on T2 axial fat sat image 6. There is no extra-axial fluid collection. Punctate T2/IR white matter focus is seen adjacent to the lower left anterior horn of the left latera l ventricle with additional white matter focus in the right frontal lobe and 2 foci in the left front oparietal region, gleason radiata. These measure up to 5 mm. The ventricular system and cisternal spaces are normal in size and appearance. The brain volume is a ge appropriate. Midline structures demonstrate normal morphology. Incidental note is made of a partially empty sella turcica. Cerebral aqueduct is diminutive, however no hydrocephalus is seen. The craniocervical junct ion appears within normal limits. Minimal mucosal thickening is seen within the ethmoid sinuses. Imani ining paranasal sinuses and mastoid air cells are well aerated. The globes are intact. IMPRESSION: 1. Acute to subacute infarct in the distribution of the left posterior cerebral artery involving the occipital and posterior parietal lobes. 2. Findings highly concerning for short segment (V4 segment) vertebral artery dissection or occlusion is seen on the MR a images of the same day. 3. Few foci of nonspecific white matter change, most commonly on the basis of chronic microangiopathy . A Yellow level critical message alert has been initiated for Agustina Cowan via the [employer] Critical Results System on 11/02/2017 1:39 PM. This message alert has been sent to Agustina Cowan via t he preferences provided by the clinician for the receipt of Radiology Critical Findings. Message ID [id number].
[2017-11-02 16:30] LABS: Glucose,Whole Blood 307 mg/dL (75-99)
[2017-11-02] MEDS: cefTRIAXone IN SWFI 1,000 MG/10 ML SYRINGE IVP SCH (17:11)
[2017-11-02] MEDS: FLUTICASONE 50MCG/SPRAY NASAL 16GM EA NOSTRIL SCH ×2 (17:14→21:21)
--- NOTE | 2017-11-02 17:40 | ECHOF ---
Referral Reason:Stroke MEASUREMENTS -------- HEIGHT: 152.4 cm WEIGHT: 63.0 kg BP: 155/75 RVIDd: 2.9 cm (< 3.3) IVSd: 1.2 cm (0.6 - 1.1) LVIDd: 4.2 cm (3.9 - 5.3) LVPWd: 1.3 cm (0.6 - 1.1) IVSs: 1.4 cm LVIDs: 3.7 cm LVPWs: 1.7 cm LA Diam: 3.4 cm (2.7 - 3.8) LAESV Index (A-L): 20.01 ml/m Ao Diam: 2.8 cm (2.0 - 3.7) AV Cusp: 1.9 cm (1.5 - 2.6) MV EXCURSION: 17.310 mm (> 18.000) MV EF SLOPE: 108 mm/s (70 - 150) EPSS: 0.5 cm MV E Reggie: 0.81 m/s MV DecT: 194 ms MV A Reggie: 1.04 m/s MV E/A Ratio: 0.78 FINDINGS -------- Sinus rhythm. This was a technically good study. The left ventricular size is normal. There is borderline concentric left ventricular hypertrophy. Overall left ventricular systolic function is normal with, an EF between 60 - 65 %. The right ventricle is normal in size. Normal LA size by volume 22+/-6 ml/m2. The right atrium is normal in size. The aortic valve is trileaflet and appears structurally normal. The mitral valve is normal. No mitral regurgitation. The tricuspid valve appears structurally normal. No regurgitation noted Trace/mild (physiologic) pulmonic regurgitation. The aortic root size is normal. Normal inferior vena cava with normal inspiratory collapse consistent with estimated right atrial pre ssure of 5 mmHg. There is no pericardial effusion. CONCLUSIONS -------- 1. Sinus rhythm. 2. This was a technically good study. 3. The left ventricular size is normal. 4. There is borderline concentric left ventricular hypertrophy. 5. Overall left ventricular systolic function is normal with, an EF between 60 - 65 %. 6. Normal LA size by volume 22+/-6 ml/m2. 7. The aortic valve is trileaflet and appears structurally normal. 8. The mitral valve is normal. 9. The tricuspid valve appears structurally normal. 10. Trace/mild (physiologic) pulmonic regurgitation. 11. The aortic root size is normal. 12. Normal inferior vena cava with normal inspiratory collapse consistent with estimated right atrial pressure of 5 mmHg. 13. There is no pericardial effusion. HAND MITER OPERATOR: Nichole Up RDCS
--- NOTE | 2017-11-02 18:08 | P.PN ---
Subjective Progress Note Date: 11/02/17 On 11/01/2016, the patient is having some limited hoarseness. She is also complaining of cough and. No significant bronchospasm and wheezing. No fever chills or night sweats. No nausea or vomiting. She is ambulating. No oropharyngeal thrush. She remains on a combination of Rocephin and Zithromax. She is also on steroids in the patient has been switched to a prednisone burst taper. This which was done today. No other complaints otherwise for now. She is taking Mucinex for cough. Blood sugars is under better control for now with a sliding scale coverage and the patient is also on a combination of Glucotrol and metformin. On 11/02/2017 , patient is essentially the same. Some limited improvement in her hoarseness. Otherwise no new complaints. Is ambulating. She is in a prednisone burst taper. No fever or chills. No other complaints otherwise for now. She is still accommodation Rocephin and Zithromax. The white cell count is at 19. Sugars still elevated related to prednisone Objective - Vital Signs Vital signs: Vital Signs Temp 98.3 F 11/02/17 16:00 Pulse 90 11/02/17 16:52 Resp 18 11/02/17 16:00 BP 130/64 11/02/17 16:00 Pulse Ox 92 L 11/02/17 16:00 Intake & Output 11/01/17 11/02/17 11/02/17 18:59 06:59 18:59 Intake Total 820 840 720 Output Total 1200 Balance 820 840 -480 Weight 58.6 kg Intake: Oral 820 840 720 Output: Urine 1200 Other: Voiding Method Toilet Toilet # Voids 3 3 - Exam Head exam was generally normal. There was no scleral icterus or corneal arcus. Mucous membranes were moist.Neck was supple and without jugular venous distension, thyromegaly, or carotid bruits. Carotids were easily palpable bilaterally. There was no adenopathy. Lung sounds are diminished bilaterally along with some scattered expiratory wheezes and rhonchi heard throughout the lung nicole bilaterally especially with expiratory maneuvers. No use of accessory muscles of breathing.Cardiac exam revealed the PMI to be normally situated and sized. The rhythm was regular and no extrasystoles were noted during several minutes of auscultation. The first and second heart sounds were normal and physiologic splitting of the second heart sound was noted. There were no murmurs, rubs, clicks, or gallops.Abdominal exam revealed normal bowel sounds. The abdomen was soft, non-tender, and without masses, organomegaly, or appreciable enlargement of the abdominal aorta.Examination of the extremities revealed easily palpable radial, femoral and pedal pulses. There was no cyanosis , clubbing or edema.Examination of the skin revealed no evidence of significant rashes, suspicious appearing nevi or other concerning lesions. Neurologically the patient is awake and alert and there is no focal neurological deficit. Psychiatric appropriate affect.Examination of the skin revealed no evidence of significant rashes, suspicious appearing nevi or other concerning lesions. - Labs CBC & Chem 7: 11/02/17 06:01 11/02/17 06:01 Labs: Abnormal Lab Results - Last 24 Hours (Table) 11/01/17 11/02/17 11/02/17 Range/Units 21:07 02:01 06:01 WBC 19.7 H (3.8-10.6) k/uL Neutrophils # (Manual) 10.44 H (1.3-7.7) k/uL Lymphocytes # (Manual) 7.88 H (1.0-4.8) k/uL Metamyelocytes # (Man) 0.20 H (0) k/uL Myelocytes # (Manual) 0.59 H (0) k/uL Sodium (137-145) mmol/L BUN (7-17) mg/dL Glucose (74-99) mg/dL POC Glucose (mg/dL) 209 H 127 H (75-99) mg/dL AST (14-36) U/L Albumin (3.5-5.0) g/dL 11/02/17 11/02/17 11/02/17 Range/Units 06:01 06:06 11:04 WBC (3.8-10.6) k/uL Neutrophils # (Manual) (1.3-7.7) k/uL Lymphocytes # (Manual) (1.0-4.8) k/uL Metamyelocytes # (Man) (0) k/uL Myelocytes # (Manual) (0) k/uL Sodium 136 L (137-145) mmol/L BUN 18 H (7-17) mg/dL Glucose 105 H (74-99) mg/dL POC Glucose (mg/dL) 112 H 180 H (75-99) mg/dL AST 9 L (14-36) U/L Albumin 3.4 L (3.5-5.0) g/dL 11/02/17 Range/Units 16:10 WBC (3.8-10.6) k/uL Neutrophils # (Manual) (1.3-7.7) k/uL Lymphocytes # (Manual) (1.0-4.8) k/uL Metamyelocytes # (Man) (0) k/uL Myelocytes # (Manual) (0) k/uL Sodium (137-145) mmol/L BUN (7-17) mg/dL Glucose (74-99) mg/dL POC Glucose (mg/dL) 307 H (75-99) mg/dL AST (14-36) U/L Albumin (3.5-5.0) g/dL Microbiology - Last 24 Hours (Table) 10/29/17 11:20 Blood Culture - Preliminary Blood No Growth after 96 hours Assessment and Plan Plan: Assessment 1 acute COPD exacerbation with secondary shortness of breath, improving 2 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 3 smoker 4 steroid-induced hyperglycemia, rule out underlying diabetes mellitus, currently on a prednisone burst taper 5 hypertension 6 chronic back pain 7 chronic vertigo Plan Continue prednisone burst taper. Clinically improving. Current and accommodation Rocephin, Zithromax and prednisone burst taper in addition to bronchodilators.
[2017-11-02] MEDS: HYDROcodone/APAP 5-325MG 1 EACH TAB PO PRN (20:10)
[2017-11-02 20:47] LABS: Glucose,Whole Blood 177 mg/dL (75-99)
[2017-11-02] MEDS: MONTELUKAST 10 MG TAB PO SCH (21:21)
--- NOTE | 2017-11-02 21:52 | P.PN ---
Subjective Progress Note Date: 11/02/17 The patient is a 62-year-old woman admitted to the hospital new onset hyperglycemia with a blood glucose of 502. She had reported that several days prior she had developed visual loss. On neurologic examination she was found to have a right homonymous hemianopsia. I today confirmed that she has had a stroke acute to subacute in the distribution of the left posterior cerebral artery. The patient had an MRA which confirmed a cerebral aneurysm of 2 mm size. She does follow at [facility] for this. The patient is doing about the same today. She has no new symptoms. She continues to have the right homonymous hemianopsia. Her headache is better. The patient has had a CTA of the neck in July 2017 which did show a diminutive size left vertebral artery. The patient reports that the vision disturbance occurred after coughing intensely. Objective - Vital Signs Vital signs: Vital Signs Temp 98.3 F 11/02/17 16:00 Pulse 103 H 11/02/17 20:50 Resp 18 11/02/17 16:00 BP 130/64 11/02/17 16:00 Pulse Ox 92 L 11/02/17 20:50 Intake & Output 11/02/17 11/02/17 11/03/17 06:59 18:59 06:59 Intake Total 840 720 Output Total 1200 Balance 840 -480 Weight 58.6 kg Intake: Oral 840 720 Output: Urine 1200 Other: Voiding Method Toilet # Voids 3 - Constitutional General appearance: Present: cooperative - EENT Eyes: Present: PERRLA - Respiratory Respiratory: bilateral: CTA - Cardiovascular Rhythm: regular - Neurologic Neurologic Comment(s): Neurologic exam mental status: She was awake alert and oriented he answered questions appropriately there is no a aphasia or dysarthria Neurologic: Present: focal deficits (There is no facial asymmetry she had a right homonymous hemianopsia) - Musculoskeletal Musculoskeletal: Present: strength equal bilaterally - Psychiatric Psychiatric: Present: appropriate affect - Labs CBC & Chem 7: 11/02/17 06:01 11/02/17 06:01 Labs: Abnormal Lab Results - Last 24 Hours (Table) 11/02/17 11/02/17 11/02/17 Range/Units 02:01 06:01 06:01 WBC 19.7 H (3.8-10.6) k/uL Neutrophils # (Manual) 10.44 H (1.3-7.7) k/uL Lymphocytes # (Manual) 7.88 H (1.0-4.8) k/uL Metamyelocytes # (Man) 0.20 H (0) k/uL Myelocytes # (Manual) 0.59 H (0) k/uL Sodium 136 L (137-145) mmol/L BUN 18 H (7-17) mg/dL Glucose 105 H (74-99) mg/dL POC Glucose (mg/dL) 127 H (75-99) mg/dL AST 9 L (14-36) U/L Albumin 3.4 L (3.5-5.0) g/dL 11/02/17 11/02/17 11/02/17 Range/Units 06:06 11:04 16:10 WBC (3.8-10.6) k/uL Neutrophils # (Manual) (1.3-7.7) k/uL Lymphocytes # (Manual) (1.0-4.8) k/uL Metamyelocytes # (Man) (0) k/uL Myelocytes # (Manual) (0) k/uL Sodium (137-145) mmol/L BUN (7-17) mg/dL Glucose (74-99) mg/dL POC Glucose (mg/dL) 112 H 180 H 307 H (75-99) mg/dL AST (14-36) U/L Albumin (3.5-5.0) g/dL 11/02/17 Range/Units 20:46 WBC (3.8-10.6) k/uL Neutrophils # (Manual) (1.3-7.7) k/uL Lymphocytes # (Manual) (1.0-4.8) k/uL Metamyelocytes # (Man) (0) k/uL Myelocytes # (Manual) (0) k/uL Sodium (137-145) mmol/L BUN (7-17) mg/dL Glucose (74-99) mg/dL POC Glucose (mg/dL) 177 H (75-99) mg/dL AST (14-36) U/L Albumin (3.5-5.0) g/dL Microbiology - Last 24 Hours (Table) 10/29/17 11:20 Blood Culture - Preliminary Blood No Growth after 96 hours Assessment and Plan (1) Stroke Current Visit: Yes Status: Acute Code(s): I63.9 - CEREBRAL INFARCTION, UNSPECIFIED SNOMED Code(s): 703339286 (2) Visual field defect Current Visit: Yes Status: Acute SNOMED Code(s): 37076746 (3) History of cerebral aneurysm repair Current Visit: Yes Status: Acute SNOMED Code(s): 918557387 Plan: The patient is a 62-year-old woman with history of cerebral aneurysm and recent stroke. She presents to the hospital with new onset diabetes. She reported that her vision has been disturbed since last week. On neurologic examination she has a right homonymous hemianopsia. MRI of the brain confirms left posterior circulation infarct. The radiologist were was questioning whether there was occlusion versus dissection. She has had a previous previous CTA of the neck in July 2017 which showed diminished size of the left vertebral artery. Recommend continue aspirin and close neuro checks. Discussed with patient possibility of transferring to tertiary center for further evaluation of vertebral stenosis /occlusion.
[2017-11-03 02:32] LABS: Glucose,Whole Blood 210 mg/dL (75-99)
[2017-11-03 05:55] LABS: Glucose,Whole Blood 139 mg/dL (75-99)
[2017-11-03 06:30] LABS: Basophils # (A) 0.1 k/uL (0-0.2); Basophils % (A) 1 %; Eosinophils # (A) 0.2 k/uL (0-0.7); Eosinophils % (A) 1 %; HCT 41.9 % (34.0-46.0); HGB 13.7 gm/dL (11.4-16.0); Lymphocytes % (A) 32 %; MCH 27.7 pg (25.0-35.0); MCHC 32.7 g/dL (31.0-37.0); MCV 84.9 fL (80.0-100.0); Mean Platelet Volume 7.3; Monocytes # (A) 0.9 k/uL (0-1.0); Monocytes % (A) 4 %; Neutrophils # (A) 13.1 k/uL (1.3-7.7); Neutrophils % (A) 61 %; Platelet Count 421 k/uL (150-450); RBC 4.94 m/uL (3.80-5.40); RDW 14.2 % (11.5-15.5); WBC 21.6 k/uL (3.8-10.6)
[2017-11-03 06:34] LABS: Lymphocytes # (A) 6.9 k/uL (1.0-4.8)
[2017-11-03] MEDS: INSULIN ASPART 100 UNIT/ML 1 ML 10 ML VIAL SQ SCH ×2 (06:35→12:57)
[2017-11-03 07:00] LABS: ALT 22 U/L (9-52); AST 12 U/L (14-36); Albumin 3.4 g/dL (3.5-5.0); Alkaline Phosphatase 115 U/L (38-126); Anion Gap 9 mmol/L; Blood Urea Nitrogen 21 mg/dL (7-17); Carbon Dioxide 25 mmol/L (22-30); Chloride 103 mmol/L (98-107); Glucose 132 mg/dL (74-99); Sodium 137 mmol/L (137-145); Total Bilirubin 0.3 mg/dL (0.2-1.3); Total Protein 6.2 g/dL (6.3-8.2)
[2017-11-03] MEDS: metFORMIN 500 MG TAB PO SCH (08:52)
[2017-11-03] MEDS: glipiZIDE 10 MG TAB PO SCH (08:52)
[2017-11-03] MEDS: CHOLECALCIFEROL 1,000 UNIT TAB PO SCH (08:53)
[2017-11-03] MEDS: amLODIPine 10 MG TAB PO SCH (08:53)
[2017-11-03] MEDS: ASPIRIN 81 MG PO SCH (08:53)
[2017-11-03] MEDS: AZITHROMYCIN 500 MG TAB PO SCH (08:53)
[2017-11-03] MEDS: DULoxetine HCL 60 MG CAPSULE.DR PO SCH (08:53)
[2017-11-03] MEDS: guaiFENesin 600 MG TABLET.ER PO SCH (08:54)
[2017-11-03] MEDS: FLUTICASONE 50MCG/SPRAY NASAL 16GM EA NOSTRIL SCH (08:57)
[2017-11-03] MEDS: IPRATROPIUM-ALBUTEROL 3 ML NEB INHALATION SCH ×2 (08:59→13:02)
[2017-11-03] MEDS: predniSONE 20 MG TAB PO SCH (11:00)
[2017-11-03] MEDS: LORATADINE 10 MG TAB PO SCH (11:00)
[2017-11-03] MEDS: HEPARIN SODIUM,PORCINE 5,000 UNIT/ML 1 ML VIAL SQ SCH (11:00)
[2017-11-03 11:11] VITALS: BP 131/64; RESP 16; TEMP 98.1
[2017-11-03 12:40] LABS: Glucose,Whole Blood 120 mg/dL (75-99)
[2017-11-03 13:12] VITALS: PULSE 94
--- NOTE | 2017-11-03 13:22 | P.DS ---
Providers Date of admission: 10/29/17 15:37 Expected date of discharge: 11/03/17 Attending physician: Shanna Kat Consults: 10/29/17 15:37 Consult Physician Routine Consulting Provider: Sandi Escamilla Consult Reason/Comments: COPD with exacerbation Do you want consulting provider notified?: Yes 11/01/17 11:27 Consult Physician Routine Consulting Provider: Rashawn Cowan Consult Reason/Comments: vision loss Do you want consulting provider notified?: Yes Primary care physician: Kiah Amin Hospital Course: Diagnoses on discharge: 1. Acute COPD exacerbation: Currently on oral prednisone. Continue bronchodilators. Continue Mucinex. Pulmonary service following 2. Acute bacterial bronchitis with no evidence of pneumonia on chest x-ray: Continue Rocephin and azithromycin 3. New onset type 2 diabetes mellitus with A1c of 9.7. Patient was started on metformin and glipizide during this admission. She has been seen by the websphere message broker developer. Blood sugars are showing improvement. Continue sliding scale coverage 4. Mild DKA on presentation 5. Essential hypertension: Blood pressure well-controlled 6. Major depressive disorder 7. DVT prophylaxis with subcu heparin 8. 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 Computed tomography scan of the chest on presentation showed no acute intracranial findings. There is encephalomalacia noted in the distribution of the left posterior cerebral artery no compared to prior imaging in December 2015 and may represent an ischemic events. Patient seen by neurology. They have ordered MRI and MRA of the brain echocardiogram and carotid Doppler. MRI of the brain confirms left posterior circulation infarct. MRA confirmed a cerebral aneurysm of 2 mm size. The radiologis was questioning whether there was occlusion versus dissection. Hospital course: Patient presented with cough and shortness of breath. She is treated for a COPD exacerbation and bronchitis. [facility] is following. Yesterday she mentioned that she has been having loss in the vision on the right side of her eye. This started on Sunday and has been intermittent didn't she had also been having headache at that time. Headache has resolved. Computed tomography scan of the brain showed no acute process but a chronic encephalomalacia in the left posterior cerebral artery distribution for a prior infarct. Due to these vision changes neurology was consulted. They've ordered an echo carotid ultrasound and an MRI and MRA of the brain. Patient reports that she still has vision loss on the right side of the right eye and also some vision loss on the inside of the left eye. Her breathing is showing improvement. She's on prednisone. Cough is also improving. Denies any chest pain. Denies any weakness in the extremities. Denies any nausea vomiting bowel movement changes or urinary symptoms. Patient respiratory function improved she continued to have right hemianopia, due to findings on MRI and MRA patient will be transferred to [facility] for further evaluation and treatment. Patient Condition at Discharge: Stable Plan - Discharge Summary New Discharge Prescriptions: No Action Montelukast [Singulair] 10 mg PO HS Loratadine [Claritin] 10 mg PO DAILY Meclizine HCl 25 mg PO Q6H PRN PRN Reason: Vertigo HYDROcodone/APAP 5-325MG [Verdi 5-325] 1 tab PO TID PRN PRN Reason: Pain Fluticasone Nasal Magnolia [Flonase Nasal Magnolia] 1 spray EA NOSTRIL BID Cholecalciferol [Vitamin D3] 1,000 unit PO DAILY amLODIPine [Norvasc] 10 mg PO DAILY Chlorzoxazone [Parafon Forte DSC] 500 mg PO Q6HR PRN PRN Reason: Spasms Aspirin EC [Ecotrin Low Dose] 81 mg PO DAILY Albuterol Sulfate [Proair Hfa] 2 puff INHALATION RT-Q4H PRN PRN Reason: Cough hydrOXYzine PAMOATE [Vistaril] 100 mg PO HS PRN PRN Reason: Insomnia hydrOXYzine PAMOATE [Vistaril] 50 mg PO TID PRN PRN Reason: Anxiety Fluticasone Propionate [Flovent Hfa 220MCG] 1 puff INHALATION RT-BID DULoxetine HCL [Cymbalta] 60 mg PO DAILY Discharge Medication List Loratadine [Claritin] 10 mg PO DAILY 01/01/16 [History] Meclizine HCl 25 mg PO Q6H PRN 01/01/16 [History] Montelukast [Singulair] 10 mg PO HS 01/01/16 [History] Cholecalciferol [Vitamin D3] 1,000 unit PO DAILY 01/02/16 [History] Fluticasone Nasal Magnolia [Flonase Nasal Magnolia] 1 spray EA NOSTRIL BID 01/02/16 [ History] HYDROcodone/APAP 5-325MG [Verdi 5-325] 1 tab PO TID PRN 01/02/16 [History] amLODIPine [Norvasc] 10 mg PO DAILY 01/02/16 [History] Albuterol Sulfate [Proair Hfa] 2 puff INHALATION RT-Q4H PRN 10/29/17 [History] Aspirin EC [Ecotrin Low Dose] 81 mg PO DAILY 10/29/17 [History] Chlorzoxazone [Parafon Forte DSC] 500 mg PO Q6HR PRN 10/29/17 [History] DULoxetine HCL [Cymbalta] 60 mg PO DAILY 10/29/17 [History] Fluticasone Propionate [Flovent Hfa 220MCG] 1 puff INHALATION RT-BID 10/29/17 [ History] hydrOXYzine PAMOATE [Vistaril] 50 mg PO TID PRN 10/29/17 [History] hydrOXYzine PAMOATE [Vistaril] 100 mg PO HS PRN 10/29/17 [History] Follow up Appointment(s)/Referral(s): Kiah Amin MD [Primary Care Provider] - 1-2 days [facility], [NON-STAFF] - Activity/Diet/Wound Care/Special Instructions: Take script for glucomter to EVELYN Harris, or Mary Ann
--- NOTE | 2017-11-03 16:26 | P.PN ---
Subjective Progress Note Date: 11/03/17 Principal diagnosis: Acute exacerbation of chronic obstructive pulmonary disease. On 11/01/2016, the patient is having some limited hoarseness. She is also complaining of cough and. No significant bronchospasm and wheezing. No fever chills or night sweats. No nausea or vomiting. She is ambulating. No oropharyngeal thrush. She remains on a combination of Rocephin and Zithromax. She is also on steroids in the patient has been switched to a prednisone burst taper. This which was done today. No other complaints otherwise for now. She is taking Mucinex for cough. Blood sugars is under better control for now with a sliding scale coverage and the patient is also on a combination of Glucotrol and metformin. On 11/02/2017 , patient is essentially the same. Some limited improvement in her hoarseness. Otherwise no new complaints. Is ambulating. She is in a prednisone burst taper. No fever or chills. No other complaints otherwise for now. She is still accommodation Rocephin and Zithromax. The white cell count is at 19. Sugars still elevated related to prednisone The patient is seen again today 11/03/2017 in follow-up in the selective care unit. She is awake and alert in no acute distress. She is maintaining good O2 saturations in the 90s on 2 L/m per nasal cannula. She is nearly back to her baseline. She is anxious to go home. Cultures revealed no growth to date. White count 21.6. Creatinine 0.73. Glucose 120. Objective - Vital Signs Vital signs: Vital Signs Temp 98.1 F 11/03/17 08:00 Pulse 94 11/03/17 13:12 Resp 16 11/03/17 08:00 BP 131/64 11/03/17 08:00 Pulse Ox 93 L 11/03/17 09:02 Intake & Output 11/02/17 11/03/17 11/03/17 18:59 06:59 18:59 Intake Total 720 Output Total 1200 Balance -480 Weight 66 kg Intake: Oral 720 Output: Urine 1200 Other: Voiding Method Toilet # Voids 2 - Exam GENERAL EXAM: Alert, active, comfortable in no apparent distress. HEAD: Normocephalic. EYES: Normal reaction of pupils, equal size. NOSE: Clear with pink turbinates. THROAT: No erythema or exudates. NECK: No masses, no JVD. CHEST: No chest wall deformity. LUNGS: Equal air entry with faint end expiratory wheeze. Diminished. CVS: S1 and S2 normal with no audible murmur, regular rhythm. ABDOMEN: No hepatosplenomegaly, normal bowel sounds, no guarding or rigidity. SPINE: No scoliosis or deformity SKIN: No rashes CENTRAL NERVOUS SYSTEM: No focal deficits, tone is normal in all 4 extremities. EXTREMITIES: There is no peripheral edema. No clubbing, no cyanosis. Peripheral pulses are intact. - Labs CBC & Chem 7: 11/03/17 06:01 11/03/17 06:01 Labs: Abnormal Lab Results - Last 24 Hours (Table) 11/02/17 11/02/17 11/03/17 Range/Units 16:10 20:46 02:19 WBC (3.8-10.6) k/uL Neutrophils # (1.3-7.7) k/uL Lymphocytes # (1.0-4.8) k/uL BUN (7-17) mg/dL Glucose (74-99) mg/dL POC Glucose (mg/dL) 307 H 177 H 210 H (75-99) mg/dL AST (14-36) U/L Total Protein (6.3-8.2) g/dL Albumin (3.5-5.0) g/dL 11/03/17 11/03/17 11/03/17 Range/Units 05:53 06:01 06:01 WBC 21.6 H (3.8-10.6) k/uL Neutrophils # 13.1 H (1.3-7.7) k/uL Lymphocytes # 6.9 H (1.0-4.8) k/uL BUN 21 H (7-17) mg/dL Glucose 132 H (74-99) mg/dL POC Glucose (mg/dL) 139 H (75-99) mg/dL AST 12 L (14-36) U/L Total Protein 6.2 L (6.3-8.2) g/dL Albumin 3.4 L (3.5-5.0) g/dL 11/03/17 Range/Units 12:36 WBC (3.8-10.6) k/uL Neutrophils # (1.3-7.7) k/uL Lymphocytes # (1.0-4.8) k/uL BUN (7-17) mg/dL Glucose (74-99) mg/dL POC Glucose (mg/dL) 120 H (75-99) mg/dL AST (14-36) U/L Total Protein (6.3-8.2) g/dL Albumin (3.5-5.0) g/dL Microbiology - Last 24 Hours (Table) 10/29/17 11:20 Blood Culture - Preliminary Blood No Growth after 96 hours Assessment and Plan Assessment: Assessment 1 acute COPD exacerbation with secondary shortness of breath, he covered. 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 3 smoker 4 steroid-induced hyperglycemia, rule out underlying diabetes mellitus, currently on a prednisone burst taper 5 hypertension 6 chronic back pain 7 chronic vertigo Plan The patient was seen and evaluated by Dr. Escamilla. She is stable for discharge from the pulmonary standpoint. She'll contact plate her course of antibiotics and her prednisone taper. Continue her bronchodilators. She'll follow-up in our office in 1-2 weeks' time. She is again educated regarding the importance of complete smoking cessation. Encouraged to call sooner with any recurrence of symptoms or other questions or concerns. I, the cosigning physician, performed a history & physical examination of the patient. Lungs sounds are clear. Maintaining good O2 saturations in the 90s on 2 L/m per nasal cannula. I discussed the assessment and plan of care with my nurse practitioner, Nakita Mora. I attest to the above note as dictated by her.
== END 2017-11-03 13:30 | disposition short-term general hospital (02) | DRG 190 ==
LOC: EC 11:50 → 4MS4W 15:37 → 6SEL 21:36
PROVIDERS: ADMIT Internal Medicine; ATTEND Internal Medicine
DX: J44.0 Chronic obstructive pulmonary disease with (acute) lower respiratory infection (principal); E11.10 Type 2 diabetes mellitus with ketoacidosis without coma; I67.1 Cerebral aneurysm, nonruptured; G93.89 Other specified disorders of brain; H53.461 Homonymous bilateral field defects, right side; J44.1 Chronic obstructive pulmonary disease with (acute) exacerbation; E11.65 Type 2 diabetes mellitus with hyperglycemia; N28.9 Disorder of kidney and ureter, unspecified; E86.0 Dehydration; R51 Headache; I10 Essential (primary) hypertension; R42 Dizziness and giddiness; G89.29 Other chronic pain; M25.519 Pain in unspecified shoulder; F41.9 Anxiety disorder, unspecified; M54.9 Dorsalgia, unspecified; F17.210 Nicotine dependence, cigarettes, uncomplicated; F32.9 Major depressive disorder, single episode, unspecified; J20.9 Acute bronchitis, unspecified; T65.221A Toxic effect of tobacco cigarettes, accidental (unintentional), initial encounter; J68.4 Chronic respiratory conditions due to chemicals, gases, fumes and vapors; T38.0X5A Adverse effect of glucocorticoids and synthetic analogues, initial encounter; Z79.51 Long term (current) use of inhaled steroids; Z79.899 Other long term (current) drug therapy; Z79.82 Long term (current) use of aspirin; Z88.6 Allergy status to analgesic agent; Z88.8 Allergy status to other drugs, medicaments and biological substances; Z90.49 Acquired absence of other specified parts of digestive tract; Z98.890 Other specified postprocedural states; Z86.73 Personal history of transient ischemic attack (TIA), and cerebral infarction without residual deficits; Z71.6 Tobacco abuse counseling; Z83.3 Family history of diabetes mellitus; Z82.49 Family history of ischemic heart disease and other diseases of the circulatory system
CPT/HCPCS: 36415; 70450; 70544; 70551; 71046; 80051; 80053; 81003; 82009; 82550; 82553; 82565; 82947; 83036; 83605; 83735; 83880; 84100; 84520; 85025; 85610; 85730; 87040; 93005; 93306; 93880; 94640; 94760; 96361; 96374; 99285

== ENCOUNTER 2018-01-12 18:38 | Observation (INO) | payer MEDICARE, OTHER ==
[2018-01-12] MEDS ORDERED: NITROGLYCERIN SL TABS 0.4 MG TAB SUBLINGUAL STA ×3 (18:58)
[2018-01-12] MEDS ORDERED: ASPIRIN 81 MG PO STA (18:58)
--- NOTE | 2018-01-12 19:03 | ED ---
General Adult HPI - General Chief complaint: Chest Pain Stated complaint: Chest Pain Time Seen by Provider: 01/12/18 18:56 Source: patient, RN notes reviewed Mode of arrival: wheelchair Limitations: no limitations - History of Present Illness Initial comments: Patient is a pleasant 62-year-old female presenting to the emergency Department with chest discomfort. Onset was around an hour and a half ago while at rest. Discomfort is currently 7/10. Discomfort feels like tightness with radiation towards the left shoulder and neck. No associated dyspnea. Patient has had some mild nausea. Patient has been sweaty. Patient is unclear if she has had similar symptoms previously. No leg pain or leg swelling. - Related Data Home Medications Medication Instructions Recorded Confirmed Loratadine [Claritin] 10 mg PO DAILY 01/01/16 10/29/17 Meclizine HCl 25 mg PO Q6H PRN 01/01/16 10/29/17 Montelukast [Singulair] 10 mg PO HS 01/01/16 10/29/17 Cholecalciferol [Vitamin D3] 1,000 unit PO DAILY 01/02/16 10/29/17 Fluticasone Nasal [place] [Flonase 1 spray EA NOSTRIL BID 01/02/16 10/29/17 Nasal [place]] HYDROcodone/APAP 5-325MG [[place] 1 tab PO TID PRN 01/02/16 10/29/17 5-325] amLODIPine [Norvasc] 10 mg PO DAILY 01/02/16 10/29/17 Albuterol Sulfate [Proair Hfa] 2 puff INHALATION RT-Q4H PRN 10/29/17 10/29/17 Aspirin EC [Ecotrin Low Dose] 81 mg PO DAILY 10/29/17 10/29/17 Chlorzoxazone [Parafon Forte DSC] 500 mg PO Q6HR PRN 10/29/17 10/29/17 DULoxetine HCL [Cymbalta] 60 mg PO DAILY 10/29/17 10/29/17 Fluticasone Propionate [Flovent 1 puff INHALATION RT-BID 10/29/17 10/29/17 Hfa 220MCG] hydrOXYzine PAMOATE [Vistaril] 50 mg PO TID PRN 10/29/17 10/29/17 hydrOXYzine PAMOATE [Vistaril] 100 mg PO HS PRN 10/29/17 10/29/17 Allergies Allergy/AdvReac Type Severity Reaction Status Date / Time baclofen Allergy Unknown Verified 01/12/18 18:42 gabapentin Allergy Anaphylaxis Verified 01/12/18 18:42 naproxen Allergy Swelling Verified 01/12/18 18:42 Review of Systems ROS Statement: Those systems with pertinent positive or pertinent negative responses have been documented in the HPI. ROS Other: All systems not noted in ROS Statement are negative. Constitutional: Denies: fever Eyes: Denies: eye pain ENT: Denies: ear pain Respiratory: Denies: cough Cardiovascular: Reports: chest pain Endocrine: Denies: fatigue Gastrointestinal: Denies: abdominal pain Genitourinary: Denies: dysuria Musculoskeletal: Denies: back pain Skin: Denies: rash Neurological: Denies: weakness Past Medical History Past Medical History: CVA/TIA, Hypertension Additional Past Medical History / Comment(s): COPD, chronic back pain, Vertigo, hypertension History of Any Multi-Drug Resistant Organisms: None Reported Past Surgical History: Cholecystectomy, Heart Catheterization Additional Past Surgical History / Comment(s): epidural injections, rhizotomy involving the lumbar spine for chronic back pain, cardiac catheterization, cholecystectomy Past Anesthesia/Blood Transfusion Reactions: Motion Sickness Past Psychological History: Anxiety Smoking Status: Current every day smoker Past Alcohol Use History: None Reported Past Drug Use History: None Reported - Past Family History Father Family Medical History: Hypertension, Myocardial Infarction ([place]) Additional Family Medical History / Comment(s): AT AGE 63 Mother Family Medical History: Diabetes Mellitus, Dialysis Additional Family Medical History / Comment(s): MOM UNK AGE-COMPLICATIONS FROM DIABETES Sister(s) Family Medical History: Diabetes Mellitus General Exam Limitations: no limitations General appearance: alert, in no apparent distress Head exam: Present: atraumatic Eye exam: Present: normal appearance, PERRL ENT exam: Present: normal oropharynx Neck exam: Present: normal inspection Respiratory exam: Present: normal lung sounds bilaterally. Absent: chest wall tenderness Cardiovascular Exam: Present: regular rate, normal rhythm Expanded Peripheral pulses: 2+: Radial (R), Radial (L), Posterior Tibialis (R), Posterior Tibialis (L) GI/Abdominal exam: Present: soft. Absent: tenderness Extremities exam: Present: normal inspection. Absent: pedal edema, calf tenderness Neurological exam: Present: alert Psychiatric exam: Present: normal affect, normal mood Skin exam: Present: normal color Course Vital Signs 01/12/18 01/12/18 18:40 20:10 Temperature 98.4 F Pulse Rate 99 96 Respiratory 20 18 Rate Blood Pressure 143/70 138/73 O2 Sat by Pulse 100 95 Oximetry EKG Findings - EKG Comments: EKG Findings:: Sinus rhythm and 94. First-degree AV block WI of 248. QRS 68. QT 310. QTc 387. Right axis. Normal QRS. Nonspecific T waves. Medical Decision Making - Medical Decision Making Patient reevaluated and some improvement with 1 nitroglycerin. Patient and family are updated. Also updated on possible lung nodule and need for repeat chest x-ray in the future. - Lab Data Result diagrams: 01/12/18 19:24 01/12/18 19:24 Lab Results 01/12/18 01/12/18 01/12/18 Range/Units 19:24 19:24 19:24 WBC 11.9 H (3.8-10.6) k/uL RBC 5.22 (3.80-5.40) m/uL Hgb 15.0 (11.4-16.0) gm/dL Hct 43.6 (34.0-46.0) % MCV 83.5 (80.0-100.0) fL MCH 28.6 (25.0-35.0) pg MCHC 34.3 (31.0-37.0) g/dL RDW 15.6 H (11.5-15.5) % Plt Count 474 H (150-450) k/uL Neutrophils % 70 % Lymphocytes % 20 % Monocytes % 5 % Eosinophils % 3 % Basophils % 1 % Neutrophils # 8.4 H (1.3-7.7) k/uL Lymphocytes # 2.4 (1.0-4.8) k/uL Monocytes # 0.6 (0-1.0) k/uL Eosinophils # 0.4 (0-0.7) k/uL Basophils # 0.1 (0-0.2) k/uL PT (9.0-12.0) sec INR (<1.2) APTT (22.0-30.0) sec Sodium 142 (137-145) mmol/L Potassium 4.4 (3.5-5.1) mmol/L Chloride 103 (98-107) mmol/L Carbon Dioxide 24 (22-30) mmol/L Anion Gap 15 mmol/L BUN 14 (7-17) mg/dL Creatinine 1.01 (0.52-1.04) mg/dL Est GFR (CKD-EPI)AfAm 70 (>60 ml/min/1.73 sqM) Est GFR (CKD-EPI)NonAf 61 (>60 ml/min/1.73 sqM) Glucose 96 (74-99) mg/dL Calcium 10.0 (8.4-10.2) mg/dL Magnesium 2.1 (1.6-2.3) mg/dL Total Bilirubin 0.3 (0.2-1.3) mg/dL AST 16 (14-36) U/L ALT 24 (9-52) U/L Alkaline Phosphatase 155 H (38-126) U/L Total Creatine Kinase 46 (30-135) U/L CK-MB (CK-2) <0.2 (0.0-2.4) ng/mL CK-MB (CK-2) Rel Index Troponin I <0.012 (0.000-0.034) ng/mL Total Protein 7.8 (6.3-8.2) g/dL Albumin 4.6 (3.5-5.0) g/dL 01/12/18 Range/Units 19:24 WBC (3.8-10.6) k/uL RBC (3.80-5.40) m/uL Hgb (11.4-16.0) gm/dL Hct (34.0-46.0) % MCV (80.0-100.0) fL MCH (25.0-35.0) pg MCHC (31.0-37.0) g/dL RDW (11.5-15.5) % Plt Count (150-450) k/uL Neutrophils % % Lymphocytes % % Monocytes % % Eosinophils % % Basophils % % Neutrophils # (1.3-7.7) k/uL Lymphocytes # (1.0-4.8) k/uL Monocytes # (0-1.0) k/uL Eosinophils # (0-0.7) k/uL Basophils # (0-0.2) k/uL PT 9.5 (9.0-12.0) sec INR 0.9 (<1.2) APTT 24.1 (22.0-30.0) sec Sodium (137-145) mmol/L Potassium (3.5-5.1) mmol/L Chloride (98-107) mmol/L Carbon Dioxide (22-30) mmol/L Anion Gap mmol/L BUN (7-17) mg/dL Creatinine (0.52-1.04) mg/dL Est GFR (CKD-EPI)AfAm (>60 ml/min/1.73 sqM) Est GFR (CKD-EPI)NonAf (>60 ml/min/1.73 sqM) Glucose (74-99) mg/dL Calcium (8.4-10.2) mg/dL Magnesium (1.6-2.3) mg/dL Total Bilirubin (0.2-1.3) mg/dL AST (14-36) U/L ALT (9-52) U/L Alkaline Phosphatase (38-126) U/L Total Creatine Kinase (30-135) U/L CK-MB (CK-2) (0.0-2.4) ng/mL CK-MB (CK-2) Rel Index Troponin I (0.000-0.034) ng/mL Total Protein (6.3-8.2) g/dL Albumin (3.5-5.0) g/dL - Radiology Data Radiology results: image reviewed (Chest x-ray shows questionable nodule, otherwise no acute process.) Disposition Clinical Impression: Chest pain Disposition: ADMITTED IP TO THIS [facility] Referrals: Kiah Amin MD [Primary Care Provider] - 1-2 days Decision Time: 20:37
[2018-01-12 19:37] LABS: Basophils # (A) 0.1 k/uL (0-0.2); Basophils % (A) 1 %; Eosinophils # (A) 0.4 k/uL (0-0.7); Eosinophils % (A) 3 %; HCT 43.6 % (34.0-46.0); Lymphocytes # (A) 2.4 k/uL (1.0-4.8); Lymphocytes % (A) 20 %; MCH 28.6 pg (25.0-35.0); MCHC 34.3 g/dL (31.0-37.0); MCV 83.5 fL (80.0-100.0); Mean Platelet Volume 6.6; Monocytes # (A) 0.6 k/uL (0-1.0); Monocytes % (A) 5 %; Neutrophils # (A) 8.4 k/uL (1.3-7.7); Neutrophils % (A) 70 %; Platelet Count 474 k/uL (150-450); RBC 5.22 m/uL (3.80-5.40); RDW 15.6 % (11.5-15.5); WBC 11.9 k/uL (3.8-10.6)
[2018-01-12 19:48] LABS: INR 0.9 (<1.2); Partial Thromboplastin Time 24.1 sec (22.0-30.0); Prothrombin Time 9.5 sec (9.0-12.0)
[2018-01-12 19:53] LABS: Creatine Kinase 46 U/L (30-135)
--- NOTE | 2018-01-12 20:00 | XR ---
EXAMINATION TYPE: XR chest 2V DATE OF EXAM: 01/12/2018 COMPARISON: Prior chest x-ray 10/29/2017 HISTORY: Chest pain, asthma TECHNIQUE: Frontal and lateral views of the chest are obtained. FINDINGS: There are overlying cardiac leads. Surgical clips are present in the right upper quadrant. Question a perihilar nodular density on the right. There is overlying artifact however. No pneumotho rax or pleural effusion. Cardiac mediastinal silhouette, pulmonary vascularity and yaniv within normal limits. Prominent lung volumes suggest underlying COPD. IMPRESSION: Finding may be artifactual. Follow-up recommended to exclude lung nodule.
[2018-01-12 20:05] LABS: Creatine Kinase MB <0.2 ng/mL (0.0-2.4); Troponin I <0.012 ng/mL (0.000-0.034)
[2018-01-12 20:07] LABS: Albumin 4.6 g/dL (3.5-5.0); Magnesium 2.1 mg/dL (1.6-2.3); Potassium 4.4 mmol/L (3.5-5.1); Total Bilirubin 0.3 mg/dL (0.2-1.3); Total Protein 7.8 g/dL (6.3-8.2)
[2018-01-12] MEDS ORDERED: NITROGLYCERIN SL TABS 0.4 MG TAB SUBLINGUAL PRN (20:39)
[2018-01-12 22:45] VITALS: BMI 26.9
[2018-01-13 01:16] LABS: Creatine Kinase 36 U/L (30-135)
[2018-01-13 01:28] LABS: Creatine Kinase MB <0.2 ng/mL (0.0-2.4); Troponin I <0.012 ng/mL (0.000-0.034)
[2018-01-13] MEDS: NITROGLYCERIN OINT 1 INCH/GM PACKET TOPICAL SCH ×3 (05:58→11:05)
[2018-01-13 07:08] LABS: Glucose,Whole Blood 130 mg/dL (75-99)
[2018-01-13] MEDS ORDERED: ASPIRIN 325 MG TAB PO SCH (09:00)
[2018-01-13 09:27] VITALS: RESP 16
[2018-01-13 11:08] LABS: Cholesterol 187 mg/dL (<200); HDL Cholesterol 43 mg/dL (40-60); LDL Cholesterol,Calculated 108 mg/dL (0-99); Triglycerides 179 mg/dL (<150)
[2018-01-13 11:32] LABS: Creatine Kinase 35 U/L (30-135)
[2018-01-13 11:42] LABS: Creatine Kinase MB <0.2 ng/mL (0.0-2.4); Troponin I <0.012 ng/mL (0.000-0.034)
[2018-01-13 11:52] LABS: Glucose,Whole Blood 185 mg/dL (75-99)
--- NOTE | 2018-01-13 12:24 | P.CRDCN ---
History of Present Illness Consult date: 01/13/18 History of present illness: Mrs. Aparicio is a pleasant female past medical history significant for diabetes mellitus, CVA, hypertension, COPD and chronic nicotine dependence. She has a history of mild non-obstrucitve CAD from catheterization in 2012. She does not follow with a world language teacher regularly. We have been asked to see her in consultation for chest pain. She states she was sitting on couch watching television when she developed a heavy sensation in the left precordial region radiated into the left shoulder and down the left arm. She had associated shortness of breath, dizziness, nausea and diaphoresis. She denies palpitations or vomiting. Symptoms lasted approximately 15 minutes and were subsided by placing a cold cool cloth on her neck. She still has a mild dull ache sensation in the left precordial region with no associated symptoms. EKG reveals sinus mechanism with non-specific T-wave abnormalities. Telemetry tracings have been unremarkable. Chest xray negative for an acute cardiopulmonary process with evidence of COPD. Laboratory data reviewed, WBC 11.9, hemoglobin 15.0, glucose 474, sodium 142, potassium 4.4, creatinine 1.01, magnesium 2.1, cardiac enzymes negative 3, LDL 108, HDL 43, triglycerides 179, total cholesterol 187. Current cardiac medications include atorvastatin 40 mg daily, aspirin 81 mg daily and amlodipine 10 mg daily. She also takes Lantus, [place], Flexeril, pro- air, Flonase, Cymbalta, Flovent, Singulair, Claritin, meclizine, Vistaril and NovoLog. Most recent echocardiogram performed October 2017 reveals preserved left ventricular systolic function with ejection fraction 60-65%. Review of Systems At the time of my exam: CONSTITUTIONAL: Denies fever. Denies chills. EYES: Denies blurred vision. Denies vision changes. Denies eye pain. EARS, NOSE, MOUTH & THROAT: Denies headache. Denies sore throat. Denies ear pain. CARDIOVASCULAR: Complains of dull left chest pain. Denies shortness of breath. Denies orthopnea. Denies PND. Denies palpitations. RESPIRATORY: Denies cough. GASTROINTESTINAL: Denies abdominal pain. Denies diarrhea. Denies constipation. Denies nausea. Denies vomiting. MUSCULOSKELETAL: Denies myalgias. INTEGUMENTARY: Denies pruitis. Denies rash. NEUROLOGIC: Denies numbness. Denies tingling. Denies weakness. PSYCHIATRIC: Denies anxiety. Denies depression. ENDOCRINE: Denies fatigue. Denies weight change. Denies polydipsia. Denies polyurina. GENITOURINARY: Denies burning, hematuria or urgency with micturation. HEMATOLOGIC: Denies history of anemia. Denies bleeding. Past Medical History Past Medical History: CVA/TIA, Diabetes Mellitus, Hypertension Additional Past Medical History / Comment(s): COPD, chronic back pain, Vertigo History of Any Multi-Drug Resistant Organisms: None Reported Past Surgical History: Cholecystectomy, Heart Catheterization Additional Past Surgical History / Comment(s): epidural injections, rhizotomy involving the lumbar spine for chronic back pain, cardiac catheterization, cholecystectomy Past Anesthesia/Blood Transfusion Reactions: Motion Sickness Past Psychological History: Anxiety Smoking Status: Current every day smoker Past Alcohol Use History: None Reported Additional Past Alcohol Use History / Comment(s): STARTED SMOKING AT AGE 28 IPPD HAS RECENTLY CUT DOWN TO 3 CIG/DAY Past Drug Use History: None Reported - Past Family History Father Family Medical History: Hypertension, Myocardial Infarction ([place]) Additional Family Medical History / Comment(s): AT AGE 63 Mother Family Medical History: Diabetes Mellitus, Dialysis Additional Family Medical History / Comment(s): MOM UNK AGE-COMPLICATIONS FROM DIABETES Sister(s) Family Medical History: Diabetes Mellitus Medications and Allergies Home Medications Medication Instructions Recorded Confirmed Type Loratadine [Claritin] 10 mg PO DAILY 01/01/16 01/12/18 History Meclizine HCl 25 mg PO Q6H PRN 01/01/16 01/12/18 History Montelukast [Singulair] 10 mg PO HS 01/01/16 01/12/18 History Cholecalciferol [Vitamin D3] 1,000 unit PO DAILY 01/02/16 01/13/18 History Fluticasone Nasal [place] [Flonase 1 spray EA NOSTRIL BID 01/02/16 01/13/18 History Nasal [place]] amLODIPine [Norvasc] 10 mg PO DAILY 01/02/16 01/12/18 History Albuterol Sulfate [Proair Hfa] 2 puff INHALATION RT-Q4H PRN 10/29/17 01/13/18 History Aspirin EC [Ecotrin Low Dose] 81 mg PO DAILY 10/29/17 01/13/18 History Chlorzoxazone [Parafon Forte DSC] 500 mg PO Q6HR PRN 10/29/17 01/13/18 History DULoxetine HCL [Cymbalta] 60 mg PO DAILY 10/29/17 01/13/18 History Fluticasone Propionate [Flovent 1 puff INHALATION RT-BID 10/29/17 01/12/18 History Hfa 220MCG] hydrOXYzine PAMOATE [Vistaril] 50 mg PO TID PRN 10/29/17 01/12/18 History hydrOXYzine PAMOATE [Vistaril] 100 mg PO HS PRN 10/29/17 01/12/18 History Atorvastatin [Lipitor] 40 mg PO DAILY 01/13/18 01/13/18 History Cyclobenzaprine [Flexeril] 10 mg PO BID 01/13/18 01/13/18 History Hydrocodone/Acetaminophen [[place] 1 tab PO Q8H PRN 01/13/18 01/13/18 History 10-325] Insulin Aspart [NovoLOG Flexpen] See Protocol 01/13/18 History Insulin Glargine [Lantus] 10 unit SQ DAILY 01/13/18 01/13/18 History Allergies Allergy/AdvReac Type Severity Reaction Status Date / Time baclofen Allergy Unknown Verified 01/12/18 18:42 gabapentin Allergy Anaphylaxis Verified 01/12/18 18:42 naproxen Allergy Swelling Verified 01/12/18 18:42 Physical Exam Vitals: Vital Signs Temp Pulse Pulse Pulse Resp BP BP 01/13/18 04:00 98.0 F 75 75 18 01/13/18 01:27 98.1 F 76 16 136/78 01/13/18 00:00 18 01/12/18 21:44 97.6 F 84 18 111/62 01/12/18 21:00 97.7 F 72 18 123/69 01/12/18 20:58 86 16 131/74 01/12/18 20:10 96 18 138/73 01/12/18 18:40 98.4 F 99 20 143/70 Pulse Ox 01/13/18 04:00 94 L 01/13/18 01:27 94 L 01/13/18 00:00 01/12/18 21:44 94 L 01/12/18 21:00 95 01/12/18 20:58 93 L 01/12/18 20:10 95 01/12/18 18:40 100 Intake and Output 01/12/18 01/13/18 01/13/18 22:59 06:59 14:59 Other: Voiding Method Toilet # Voids 1 1 Weight 62.596 kg 62.596 kg Blood pressure 124/74 heart rate 88 afebrile maintaining oxygen saturation on nasal cannula GENERAL: This is a 62-year-old female in no apparent distress at the time of my examination. HEENT: Head is atraumatic, normocephalic. Pupils are equal, round. Sclerae anicteric. Conjunctivae are clear. Mucous membranes of the mouth are moist. Neck is supple. There is no jugular venous distention. No carotid bruit is heard. LUNGS: Clear to auscultation no wheezes, rales or rhonchi. No chest wall tenderness is noted on palpation or with deep breathing. HEART: Regular rate and rhythm without murmurs, rubs or gallops. S1 and S2 heard. ABDOMEN: Soft, nontender. Bowel sounds are heard. No organomegaly noted. EXTREMITIES: No evidence of peripheral edema and no calf tenderness noted. VASCULAR: Radial and dorsalis pedis pulses palpated, no evidence of clubbing. NEUROLOGIC: Patient is awake, alert and oriented x3. Results 01/12/18 19:24 01/12/18 19:24 Cardiac Enzymes 01/12/18 01/12/18 01/13/18 Range/Units 19:24 19:24 00:34 AST 16 (14-36) U/L CK-MB (CK-2) <0.2 <0.2 (0.0-2.4) ng/mL Troponin I <0.012 <0.012 (0.000-0.034) ng/mL Coagulation 01/12/18 Range/Units 19:24 PT 9.5 (9.0-12.0) sec APTT 24.1 (22.0-30.0) sec CBC 01/12/18 Range/Units 19:24 WBC 11.9 H (3.8-10.6) k/uL RBC 5.22 (3.80-5.40) m/uL Hgb 15.0 (11.4-16.0) gm/dL Hct 43.6 (34.0-46.0) % Plt Count 474 H (150-450) k/uL Comprehensive Metabolic Panel 01/12/18 Range/Units 19:24 Sodium 142 (137-145) mmol/L Potassium 4.4 (3.5-5.1) mmol/L Chloride 103 (98-107) mmol/L Carbon Dioxide 24 (22-30) mmol/L BUN 14 (7-17) mg/dL Creatinine 1.01 (0.52-1.04) mg/dL Glucose 96 (74-99) mg/dL Calcium 10.0 (8.4-10.2) mg/dL AST 16 (14-36) U/L ALT 24 (9-52) U/L Alkaline Phosphatase 155 H (38-126) U/L Total Protein 7.8 (6.3-8.2) g/dL Albumin 4.6 (3.5-5.0) g/dL Current Medications Generic Name Dose Route Start Last Admin Trade Name Freq PRN Reason Stop Dose Admin Aspirin 325 mg 01/13/18 09:00 Aspirin PO DAILY [facility] Nitroglycerin 1 inch 01/13/18 00:00 01/13/18 06:11 Nitro-Bid Oint TOPICAL Not Given Q6HR [facility] Nitroglycerin 0.4 mg 01/12/18 20:39 01/12/18 20:58 Nitrostat SUBLINGUAL 0.4 mg Q5M PRN Administration Chest Pain Sodium Chloride 10 ml 01/12/18 21:00 01/13/18 06:31 Saline Flush IV Not Given BID JOSE Intake and Output 01/12/18 01/13/18 01/13/18 22:59 06:59 14:59 Other: Voiding Method Toilet # Voids 1 1 Weight 62.596 kg 62.596 kg 01/12/18 19:24 01/12/18 19:24 Assessment and Plan Assessment: ASSESSMENT 1. Precordial chest pain. Diffuse T-wave abnormality and EKG with negative cardiac enzymes. 2. Hypertension 3. Dyslipidemia 4. Diabetes mellitus 5. Chronic nicotine dependence 6. History of CVA 7. Mild nonobstructive coronary artery disease per cath 2013 PLAN Discontinue nitropaste and increase activity. Continue with aspirin, atorvastatin and amlodipine at home doses. Hold any beta blocking agents for stress echocardiogram in the morning. NPO after midnight tonight. Thank you kindly for this consultation. Nurse Practitioner note has been reviewed, I agree with a documented findings and plan of care. Patient was seen and examined.
--- NOTE | 2018-01-13 13:12 | P.HPIM ---
History of Present Illness H&P Date: 01/13/18 Chief Complaint: Chest pain Kiara Aparicio is a 62-year-old female, patient of Dr. Amin with known past medical history significant for diabetes mellitus, CVA, hypertension, COPD , back injury with disability and chronic nicotine dependence. She has a history of mild non-obstrucitve CAD from catheterization in 2012. Hold presented to [facility] emergency room with a chief complaint of chest pain. She states that she was sitting on her couch watching television when she developed a heavy sensation in the left precordial region that radiated into the left shoulder and down the left arm. She had associated shortness of breath, dizziness, nausea and diaphoresis. She denies palpitations or vomiting. Symptoms lasted approximately about 15 minutes and subsided by placing a cold cool cloth on her neck. She still has a mild dull ache sensation in the left precordial region with no associated symptoms. Patient presented to emergency room she was evaluated by Dr. Toth EKG was done and revealed evidence of T-wave inversion in anterior leads 3 sets of troponin was negative patient was admitted to observation unit for further evaluation. White blood count was slightly elevated at 11.9 otherwise laboratory data unremarkable, chest x-ray revealed possible perihilar nodule on the right. Past Medical History Past Medical History: CVA/TIA, Diabetes Mellitus, Hypertension Additional Past Medical History / Comment(s): COPD, chronic back pain, Vertigo History of Any Multi-Drug Resistant Organisms: None Reported Past Surgical History: Cholecystectomy, Heart Catheterization Additional Past Surgical History / Comment(s): epidural injections, rhizotomy involving the lumbar spine for chronic back pain, cardiac catheterization, cholecystectomy Past Anesthesia/Blood Transfusion Reactions: Motion Sickness Past Psychological History: Anxiety Smoking Status: Current every day smoker Past Alcohol Use History: None Reported Additional Past Alcohol Use History / Comment(s): STARTED SMOKING AT AGE 28 IPPD HAS RECENTLY CUT DOWN TO 3 CIG/DAY Past Drug Use History: None Reported - Past Family History Father Family Medical History: Hypertension, Myocardial Infarction (MS) Additional Family Medical History / Comment(s): AT AGE 63 Mother Family Medical History: Diabetes Mellitus, Dialysis Additional Family Medical History / Comment(s): MOM UNK AGE-COMPLICATIONS FROM DIABETES Sister(s) Family Medical History: Diabetes Mellitus Medications and Allergies Home Medications Medication Instructions Recorded Confirmed Type Loratadine [Claritin] 10 mg PO DAILY 01/01/16 01/12/18 History Meclizine HCl 25 mg PO Q6H PRN 01/01/16 01/12/18 History Montelukast [Singulair] 10 mg PO HS 01/01/16 01/12/18 History Cholecalciferol [Vitamin D3] 1,000 unit PO DAILY 01/02/16 01/13/18 History Fluticasone Nasal [place] [Flonase 1 spray EA NOSTRIL BID 01/02/16 01/13/18 History Nasal [place]] amLODIPine [Norvasc] 10 mg PO DAILY 01/02/16 01/12/18 History Albuterol Sulfate [Proair Hfa] 2 puff INHALATION RT-Q4H PRN 10/29/17 01/13/18 History Aspirin EC [Ecotrin Low Dose] 81 mg PO DAILY 10/29/17 01/13/18 History Chlorzoxazone [Parafon Forte DSC] 500 mg PO Q6HR PRN 10/29/17 01/13/18 History DULoxetine HCL [Cymbalta] 60 mg PO DAILY 10/29/17 01/13/18 History Fluticasone Propionate [Flovent 1 puff INHALATION RT-BID 10/29/17 01/12/18 History Hfa 220MCG] hydrOXYzine PAMOATE [Vistaril] 50 mg PO TID PRN 10/29/17 01/12/18 History hydrOXYzine PAMOATE [Vistaril] 100 mg PO HS PRN 10/29/17 01/12/18 History Atorvastatin [Lipitor] 40 mg PO DAILY 01/13/18 01/13/18 History Cyclobenzaprine [Flexeril] 10 mg PO BID 01/13/18 01/13/18 History Hydrocodone/Acetaminophen [[place] 1 tab PO Q8H PRN 01/13/18 01/13/18 History 10-325] Insulin Aspart [NovoLOG Flexpen] See Protocol 01/13/18 History Insulin Glargine [Lantus] 10 unit SQ DAILY 01/13/18 01/13/18 History Allergies Allergy/AdvReac Type Severity Reaction Status Date / Time baclofen Allergy Unknown Verified 01/12/18 18:42 gabapentin Allergy Anaphylaxis Verified 05/19/18 18:42 naproxen Allergy Swelling Verified 01/12/18 18:42 Physical Exam Vitals: Vital Signs Temp Pulse Pulse Pulse Resp BP BP 01/13/18 12:00 97.9 F 85 16 116/60 01/13/18 08:00 98.4 F 80 16 124/74 01/13/18 04:00 98.0 F 75 75 18 01/13/18 01:27 98.1 F 76 16 136/78 01/13/18 00:00 18 01/12/18 21:44 97.6 F 84 18 111/62 01/12/18 21:00 97.7 F 72 18 123/69 01/12/18 20:58 86 16 131/74 01/12/18 20:10 96 18 138/73 01/12/18 18:40 98.4 F 99 20 143/70 Pulse Ox 01/13/18 12:00 94 L 01/13/18 08:00 94 L 01/13/18 04:00 94 L 01/13/18 01:27 94 L 01/13/18 00:00 01/12/18 21:44 94 L 01/12/18 21:00 95 01/12/18 20:58 93 L 01/12/18 20:10 95 01/12/18 18:40 100 Intake and Output 01/12/18 01/13/18 01/13/18 22:59 06:59 14:59 Other: Voiding Method Toilet Toilet # Voids 1 1 Weight 62.596 kg 62.596 kg In general patient is alert and oriented 3 in no apparent distress HEENT head normocephalic and atraumatic Neck is supple no JVD no goiter no lymphadenopathy Chest exam reveals a few scattered crackles no wheezing Cardiac exam reveals regular heart sounds S1 and S2 no gallops no murmurs Abdomen is soft nontender no organomegaly with normal bowel sounds Extremity exam reveals no edema no cyanosis or clubbing Neurological examination reveals no gross focal deficit Results CBC & Chem 7: 01/12/18 19:24 01/12/18 19:24 Labs: Abnormal Lab Results - Last 24 Hours (Table) 01/12/18 01/12/18 01/13/18 Range/Units 19:24 19:24 07:03 WBC 11.9 H (3.8-10.6) k/uL RDW 15.6 H (11.5-15.5) % Plt Count 474 H (150-450) k/uL Neutrophils # 8.4 H (1.3-7.7) k/uL POC Glucose (mg/dL) 130 H (75-99) mg/dL Alkaline Phosphatase 155 H (38-126) U/L Triglycerides (<150) mg/dL LDL Cholesterol, Calc (0-99) mg/dL 01/13/18 01/13/18 Range/Units 10:28 11:49 WBC (3.8-10.6) k/uL RDW (11.5-15.5) % Plt Count (150-450) k/uL Neutrophils # (1.3-7.7) k/uL POC Glucose (mg/dL) 185 H (75-99) mg/dL Alkaline Phosphatase (38-126) U/L Triglycerides 179 H (<150) mg/dL LDL Cholesterol, Calc 108 H (0-99) mg/dL Thrombosis Risk Factor Assmnt - Choose All That Apply Each Factor Represents 1 point: Abnormal pulmonary function (COPD), Age 41-60 years Thrombosis Risk Factor Assessment Total Risk Factor Score: 2 Thrombosis Risk Factor Assessment Level: Low Risk Assessment and Plan Plan: #1 episode of chest pain lasting about 15 minutes #2 underlying history of hypertension #3 underlying history of hyperlipidemia #4 underlying history of insulin-dependent diabetes mellitus #5 underlying history of COPD #6 underlying history of tobacco abuse patient smokes half a pack of cigarettes per day she was counseled to quit smoking #7 chest x-ray suspicious for right perihilar nodular density Will check chest x -ray PA and lateral For DVT prophylaxis we will use Lovenox 40 mg subcu daily for GI prophylaxis with the use Pepcid 20 mg by mouth twice a day Plan per cardiology is for echo stress test in a.m. Will follow closely
[2018-01-13] MEDS ORDERED: hydrOXYzine PAMOATE 25 MG CAP PO PRN ×2 (13:13)
[2018-01-13] MEDS ORDERED: ALBUTEROL NEBULIZED 2.5 MG/3 ML INHALATION PRN (13:13)
[2018-01-13] MEDS: amLODIPine 10 MG TAB PO SCH (13:44)
[2018-01-13] MEDS: ATORVASTATIN 40 MG TAB PO SCH (13:44)
[2018-01-13] MEDS: FAMOTIDINE 20 MG TAB PO SCH (13:44)
[2018-01-13] MEDS: HYDROcodone/APAP 10-325MG 1 EACH TAB PO PRN ×2 (13:44→20:25)
--- NOTE | 2018-01-13 13:48 | XR ---
EXAMINATION TYPE: XR chest 2V DATE OF EXAM: 01/13/2018 COMPARISON: 01/12/2018 HISTORY: 62-year-old female right perihilar nodular density, follow-up exam TECHNIQUE: Frontal and lateral views FINDINGS: The heart is normal size. Aorta and pulmonary vasculature within normal limits. The previously seen r ight perihilar nodularity is no longer demonstrated. However, there is some patchy right basilar opac ity which is new from prior. IMPRESSION: Some new patchy atelectasis or developing pneumonia right base. Correlate with patient's symptoms. Th e previous right perihilar nodularity has resolved.
[2018-01-13] MEDS: INSULIN DETEMIR 100 UNIT/ML 10 ML VIAL SQ SCH (14:19)
[2018-01-13 16:50] LABS: Glucose,Whole Blood 122 mg/dL (75-99)
[2018-01-13] MEDS: BUDESONIDE 0.5 MG/2 ML NEBU INHALATION SCH (20:07)
[2018-01-13] MEDS: FLUTICASONE 50MCG/SPRAY NASAL 16GM EA NOSTRIL SCH (20:25)
[2018-01-13] MEDS: CYCLOBENZAPRINE 10 MG TAB PO SCH (20:25)
[2018-01-13 20:30] LABS: Glucose,Whole Blood 176 mg/dL (75-99)
[2018-01-13] MEDS ORDERED: MONTELUKAST 10 MG TAB PO SCH (21:00)
[2018-01-14 06:45] LABS: Glucose,Whole Blood 149 mg/dL (75-99)
[2018-01-14] MEDS: BUDESONIDE 0.5 MG/2 ML NEBU INHALATION SCH (08:18)
[2018-01-14] MEDS ORDERED: DULoxetine HCL 60 MG CAPSULE.DR PO SCH (09:00)
[2018-01-14] MEDS ORDERED: NON-FORMULARY DRUG (Aspirin Ec 81 MG) PO SCH (09:00)
[2018-01-14] MEDS ORDERED: ENOXAPARIN 40 MG/0.4 ML SYRINGE SQ SCH (09:00)
[2018-01-14] MEDS ORDERED: LORATADINE 10 MG TAB PO SCH (09:00)
[2018-01-14] MEDS ORDERED: ASPIRIN 81 MG PO SCH (09:00)
[2018-01-14] MEDS ORDERED: CHOLECALCIFEROL 1,000 UNIT TAB PO SCH (09:00)
--- NOTE | 2018-01-14 11:43 | P.PN ---
Subjective Progress Note Date: 01/14/18 Mrs. Aparicio is a pleasant female past medical history significant for diabetes mellitus, CVA, hypertension, COPD and chronic nicotine dependence. She has a history of mild non-obstrucitve CAD from catheterization in 2012. She does not follow with a brewmaster regularly. We have been asked to see her in consultation for chest pain. She states she was sitting on couch watching television when she developed a heavy sensation in the left precordial region radiated into the left shoulder and down the left arm. She had associated shortness of breath, dizziness, nausea and diaphoresis. She denies palpitations or vomiting. Symptoms lasted approximately 15 minutes and were subsided by placing a cold cool cloth on her neck. She still has a mild dull ache sensation in the left precordial region with no associated symptoms. EKG reveals sinus mechanism with non-specific T-wave abnormalities. Telemetry tracings have been unremarkable. Chest xray negative for an acute cardiopulmonary process with evidence of COPD. Laboratory data reviewed, WBC 11.9, hemoglobin 15.0, glucose 474, sodium 142, potassium 4.4, creatinine 1.01, magnesium 2.1, cardiac enzymes negative 3, LDL 108, HDL 43, triglycerides 179, total cholesterol 187. Current cardiac medications include atorvastatin 40 mg daily, aspirin 81 mg daily and amlodipine 10 mg daily. She also takes Lantus, [place], Flexeril, pro- air, Flonase, Cymbalta, Flovent, Singulair, Claritin, meclizine, Vistaril and NovoLog. Most recent echocardiogram performed October 2017 reveals preserved left ventricular systolic function with ejection fraction 60-65%. 01/14/2018 She denies any further symptoms of chest pain since admission. Telemetry tracings have been unremarkable. Blood pressure 109/62 heart rate 84 afebrile maintaining oxygen saturation on room air. Repeat chest x-ray this morning revealed some new patchy atelectasis or developing pneumonia right base. Correlate with patient's symptoms. Previous right perihilar nodularity has resolved. Objective - Vital Signs Vital signs: Vital Signs Temp 97.7 F 01/14/18 07:38 Pulse 84 01/14/18 07:38 Resp 16 01/14/18 08:00 BP 109/62 01/14/18 07:38 Pulse Ox 93 L 01/14/18 07:38 Intake & Output 01/13/18 01/14/18 01/14/18 18:59 06:59 18:59 Other: Voiding Method Toilet Toilet # Voids 1 - Exam GENERAL: Well-appearing, well-nourished and in no acute distress. NECK: Supple without JVD or thyromegaly. LUNGS: Breath sounds clear to auscultation bilaterally. Respiration equal and unlabored. No wheezes, rales or rhonchi. HEART: Regular rate and rhythm without murmurs, rubs or gallops. S1 and S2 heard. EXTREMITIES: Normal range of motion, no edema. No clubbing or cyanosis. Peripheral pulses intact and strong. - Labs CBC & Chem 7: 01/12/18 19:24 01/12/18 19:24 Labs: Abnormal Lab Results - Last 24 Hours (Table) 01/13/18 01/13/18 01/13/18 Range/Units 11:49 16:46 20:29 POC Glucose (mg/dL) 185 H 122 H 176 H (75-99) mg/dL 01/14/18 Range/Units 06:41 POC Glucose (mg/dL) 149 H (75-99) mg/dL Assessment and Plan Assessment: ASSESSMENT 1. Precordial chest pain. Diffuse T-wave abnormality and EKG with negative cardiac enzymes. 2. Hypertension 3. Dyslipidemia 4. Diabetes mellitus 5. Chronic nicotine dependence 6. History of CVA 7. Mild nonobstructive coronary artery disease per cath 2013 PLAN Proceed with stress echocardiogram as was previously ordered. Suspect her pain may be related to possibly pneumonia noted on repeat chest xray this morning considering her mild leukocytosis as well. If stress test is normal she is stable from a cardiac perspective. Nurse Practitioner note has been reviewed, I agree with a documented findings and plan of care. Patient was seen and examined.
[2018-01-14 11:50] VITALS: BP 109/76; PULSE 89; TEMP 98
[2018-01-14] MEDS: HYDROcodone/APAP 10-325MG 1 EACH TAB PO PRN (11:58)
[2018-01-14] MEDS: ATORVASTATIN 40 MG TAB PO SCH (11:59)
[2018-01-14] MEDS: FAMOTIDINE 20 MG TAB PO SCH (11:59)
[2018-01-14] MEDS: amLODIPine 10 MG TAB PO SCH (11:59)
[2018-01-14] MEDS: CYCLOBENZAPRINE 10 MG TAB PO SCH (11:59)
[2018-01-14] MEDS: FLUTICASONE 50MCG/SPRAY NASAL 16GM EA NOSTRIL SCH (12:00)
[2018-01-14 12:30] LABS: Glucose,Whole Blood 122 mg/dL (75-99)
--- NOTE | 2018-01-14 13:19 | ECHOS ---
STRESS ECHOCARDIOGRAM DATE OF SERVICE: 01/14/2018 INDICATIONS: Chest pain. MEDICATIONS: BASELINE HEART RATE: 94 BASELINE BLOOD PRESSURE: 122/70 MAXIMUM HEART RATE: 121 MAXIMUM BLOOD PRESSURE: 189/92 85% MPHR: 136 100% MPHR: 160 METS: 7.1 MAXIMUM STAGE REACHED: II TOTAL EXERCISE TIME: 6 minutes CLINICAL INFORMATION: STRESS DATA: Pretesting physical examination showed a heart rate of 94, pressure is 122/70 mmHg. Baseline EKG showed showed sinus mechanism. The patient exercised on the treadmill according to Ry protocol for a total of 6 minutes and achieved 7.1 METs. Max heart rate was 121, which is about 76% of maximum predicted heart rate. Maximum blood pressure was 189/92 mmHg. Clinically, the patient did not have any symptoms of chest pain or chest discomfort during the testing or in the recovery. The EKG did not show any significant ST or T-wave abnormalities consistent with ischemia. ECHOCARDIOGRAM IMAGES: Echocardiogram images from parasternal long axis view, parasternal short axis view, apical 4 chamber and apical 2 chamber view were obtained as the baseline images, at the peak of the heart rate, as well as on recovery. The echocardiogram images showed good wall motion without any evidence of ischemia noted. CONCLUSION: 1. Nondiagnostic stress test due to the patient not achieving 85% of maximum predicted heart rate. 2. Normal EKG and normal echocardiogram in response to exercise to the level of heart rate was achieved, which is only 76% of maximum predicted heart rate. NICOLASA / SINGH: [id number] /
--- NOTE | 2018-01-14 13:35 | P.DS ---
Providers Date of admission: 01/12/18 20:37 Expected date of discharge: 01/14/18 Attending physician: Shanna Kat Consults: 01/12/18 20:39 Consult Physician Urgent Consulting Provider: Janie Daugherty Consult Reason/Comments: cp Do you want consulting provider notified?: Yes Primary care physician: Kiah [facility] Course: This is a 62-year-old female with past medical history significant for type 2 diabetes, essential hypertension, COPD, and chronic nicotine dependence who presented to the emergency room with atypical chest pain. Patient was evaluated in 12-lead EKG showed nonspecific T-wave abnormalities. Serial troponin were negative. Chest x-ray showed evidence of right lower lobe infiltrate concerning for pneumonia. Patient was noted to have mild leukocytosis. She was having a nonproductive cough. She was placed on observation and was seen and evaluated by cardiology. She underwent a stress echocardiogram that was inconclusive as patient did not reach target heart rate. Patient was cleared by cardiology as her pain was mostly atypical and has resolved. Plan to repeat stress test in the office. She will be treated with 5 days course of antibiotic for suspected underlying pneumonia. She was counseled regarding tobacco cessation. She will be discharged home in a stable condition. Plan - Discharge Summary New Discharge Prescriptions: New Levofloxacin [Levaquin] 500 mg PO DAILY 3 Days #5 tab Discontinued hydrOXYzine PAMOATE [Vistaril] 100 mg PO HS PRN PRN Reason: Insomnia No Action Montelukast [Singulair] 10 mg PO HS Loratadine [Claritin] 10 mg PO DAILY Meclizine HCl 25 mg PO Q6H PRN PRN Reason: Vertigo Fluticasone Nasal [place] [Flonase Nasal [place]] 1 spray EA NOSTRIL BID Cholecalciferol [Vitamin D3] 1,000 unit PO DAILY amLODIPine [Norvasc] 10 mg PO DAILY Chlorzoxazone [Parafon Forte DSC] 500 mg PO Q6HR PRN PRN Reason: Spasms Aspirin EC [Ecotrin Low Dose] 81 mg PO DAILY Albuterol Sulfate [Proair Hfa] 2 puff INHALATION RT-Q4H PRN PRN Reason: Cough hydrOXYzine PAMOATE [Vistaril] 50 mg PO TID PRN PRN Reason: Anxiety Fluticasone Propionate [Flovent Hfa 220MCG] 1 puff INHALATION RT-BID DULoxetine HCL [Cymbalta] 60 mg PO DAILY Cyclobenzaprine [Flexeril] 10 mg PO BID Hydrocodone/Acetaminophen [[place] 10-325] 1 tab PO Q8H PRN PRN Reason: Pain Atorvastatin [Lipitor] 40 mg PO DAILY Insulin Glargine [Lantus] 10 unit SQ DAILY Insulin Aspart [NovoLOG Flexpen] See Protocol SQ AC-TID Discharge Medication List Loratadine [Claritin] 10 mg PO DAILY 01/01/16 [History] Meclizine HCl 25 mg PO Q6H PRN 01/01/16 [History] Montelukast [Singulair] 10 mg PO HS 01/01/16 [History] Cholecalciferol [Vitamin D3] 1,000 unit PO DAILY 01/02/16 [History] Fluticasone Nasal [place] [Flonase Nasal [place]] 1 spray EA NOSTRIL BID 01/02/16 [ History] amLODIPine [Norvasc] 10 mg PO DAILY 01/02/16 [History] Albuterol Sulfate [Proair Hfa] 2 puff INHALATION RT-Q4H PRN 10/29/17 [History] Aspirin EC [Ecotrin Low Dose] 81 mg PO DAILY 10/29/17 [History] Chlorzoxazone [Parafon Forte DSC] 500 mg PO Q6HR PRN 10/29/17 [History] DULoxetine HCL [Cymbalta] 60 mg PO DAILY 10/29/17 [History] Fluticasone Propionate [Flovent Hfa 220MCG] 1 puff INHALATION RT-BID 10/29/17 [ History] hydrOXYzine PAMOATE [Vistaril] 50 mg PO TID PRN 10/29/17 [History] Atorvastatin [Lipitor] 40 mg PO DAILY 01/13/18 [History] Cyclobenzaprine [Flexeril] 10 mg PO BID 01/13/18 [History] Hydrocodone/Acetaminophen [[place] 10-325] 1 tab PO Q8H PRN 01/13/18 [History] Insulin Aspart [NovoLOG Flexpen] See Protocol SQ AC-TID 01/13/18 [History] Insulin Glargine [Lantus] 10 unit SQ DAILY 01/13/18 [History] Levofloxacin [Levaquin] 500 mg PO DAILY 3 Days #5 tab 01/14/18 [Rx] Follow up Appointment(s)/Referral(s): Kiah Amin MD [Primary Care Provider] - 1-2 days Janie Daugherty MD [STAFF PHYSICIAN] - 2 Weeks Discharge Disposition: HOME SELF-CARE
[2018-01-14] MEDS: INSULIN DETEMIR 100 UNIT/ML 10 ML VIAL SQ SCH (14:00)
== END 2018-01-14 17:12 | disposition home or self-care (01) ==
LOC: EC 18:38 → 3SUR 20:37 → 3OBS 01-13 11:14
PROVIDERS: ADMIT Internal Medicine; ATTEND Internal Medicine
DX: R07.89 Other chest pain (principal); J98.11 Atelectasis; D72.829 Elevated white blood cell count, unspecified; J44.9 Chronic obstructive pulmonary disease, unspecified; I10 Essential (primary) hypertension; E11.9 Type 2 diabetes mellitus without complications; E78.5 Hyperlipidemia, unspecified; F17.210 Nicotine dependence, cigarettes, uncomplicated; I25.10 Atherosclerotic heart disease of native coronary artery without angina pectoris; M54.9 Dorsalgia, unspecified; G89.29 Other chronic pain; R42 Dizziness and giddiness; F41.9 Anxiety disorder, unspecified; Z79.82 Long term (current) use of aspirin; Z79.51 Long term (current) use of inhaled steroids; Z79.4 Long term (current) use of insulin; Z79.899 Other long term (current) drug therapy; Z88.6 Allergy status to analgesic agent; Z88.8 Allergy status to other drugs, medicaments and biological substances; Z86.73 Personal history of transient ischemic attack (TIA), and cerebral infarction without residual deficits; Z82.49 Family history of ischemic heart disease and other diseases of the circulatory system; Z83.3 Family history of diabetes mellitus
CPT/HCPCS: 99285 ×2; 96372; 36415; 94640; 94760; 93005; 93351; 80061; 80053; 82550 ×2; 82553 ×2; 83735; 84484 ×2; 85025; 85610; 85730; 71046 ×2; G0378 ×3; J1650

== ENCOUNTER 2018-11-04 12:24 | Observation (INO) | payer MEDICARE, OTHER ==
[2018-11-04] MEDS ORDERED: MORPHINE SULFATE 4 MG/ML SYRINGE IV STA (13:30)
[2018-11-04] MEDS ORDERED: SODIUM CHLORIDE 0.9% 1,000 ML IV STA ×2 (13:30)
[2018-11-04] MEDS ORDERED: ASPIRIN 81 MG PO STA (13:37)
[2018-11-04] MEDS ORDERED: NITROGLYCERIN SL TABS 0.4 MG TAB SUBLINGUAL STA (13:37)
--- NOTE | 2018-11-04 13:42 | ED ---
Chest Pain HPI - General Source: patient, RN notes reviewed, old records reviewed Mode of arrival: ambulatory Limitations: no limitations <Gill Tate - Last Filed: 11/04/18 15:43> <Mauricio Ackerman - Last Filed: 11/04/18 16:57> - General Chief Complaint: Chest Pain Stated Complaint: CHEST PAIN, HEART Hx Time Seen by Provider: 11/04/18 13:27 - History of Present Illness Initial Comments: Patient is a 63-year-old female presents emergency department today with complaints of chest pain starting at 3 AM. Patient reports that she feels a heaviness to the left side of her chest. She has a history of strokes. She is on medication for high blood pressure. She is a smoker. No previous stenting. 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 Patient states that she has had some diaphoresis and shortness of breath. She denies any nausea or vomiting. (Gill Tate) - Related Data Home Medications Medication Instructions Recorded Confirmed Loratadine [Claritin] 10 mg PO DAILY 01/01/16 11/04/18 Meclizine HCl 25 mg PO Q6H PRN 01/01/16 11/04/18 Montelukast [Singulair] 10 mg PO HS 01/01/16 11/04/18 Cholecalciferol [Vitamin D3] 5,000 unit PO DAILY 01/02/16 11/04/18 Fluticasone Nasal [place] [Flonase 2 spray EA NOSTRIL DAILY 01/02/16 11/04/18 Nasal [place]] amLODIPine [Norvasc] 10 mg PO DAILY 01/02/16 11/04/18 Albuterol Sulfate [Proair Hfa] 2 puff INHALATION RT-Q4H PRN 10/29/17 11/04/18 Aspirin EC [Ecotrin Low Dose] 81 mg PO DAILY 10/29/17 11/04/18 DULoxetine HCL [Cymbalta] 60 mg PO DAILY 10/29/17 11/04/18 hydrOXYzine PAMOATE [Vistaril] 50 mg PO TID PRN 10/29/17 11/04/18 Atorvastatin [Lipitor] 40 mg PO DAILY 01/13/18 11/04/18 Hydrocodone/Acetaminophen [[place] 1 tab PO Q8H PRN 01/13/18 11/04/18 10-325] Insulin Aspart [NovoLOG Flexpen] See Protocol SQ AC-TID 01/13/18 11/04/18 Insulin Glargine [Lantus] 10 unit SQ HS 01/13/18 11/04/18 Fluticasone Propionate [Flovent 1 puff INHALATION RT-BID 11/04/18 11/04/18 Diskus] Allergies Allergy/AdvReac Type Severity Reaction Status Date / Time baclofen Allergy Unknown Verified 11/04/18 13:45 gabapentin Allergy Anaphylaxis Verified 11/04/18 13:45 naproxen Allergy Swelling Verified 11/04/18 13:45 Review of Systems ROS Other: All systems not noted in ROS Statement are negative. <Gill Tate - Last Filed: 11/04/18 15:43> ROS Other: All systems not noted in ROS Statement are negative. <Mauricio Ackerman - Last Filed: 11/04/18 16:57> ROS Statement: Those systems with pertinent positive or pertinent negative responses have been documented in the HPI. EKG Findings - EKG Comments: EKG Findings:: EKG shows normal sinus rhythm and ST-T wave abnormality considering anterior ischemia. Prolonged QT noted. Ventricular rate of 80 bpm. NH interval 176 most seconds. Estrogen 76 most seconds. QT QTc is 500 suspect 76 most seconds. <Gill Tate - Last Filed: 11/04/18 15:43> Past Medical History Past Medical History: CVA/TIA, Diabetes Mellitus, Hypertension Additional Past Medical History / Comment(s): COPD, chronic back pain, Vertigo History of Any Multi-Drug Resistant Organisms: None Reported Past Surgical History: Cholecystectomy, Heart Catheterization Additional Past Surgical History / Comment(s): epidural injections, rhizotomy involving the lumbar spine for chronic back pain, cardiac catheterization, cholecystectomy Past Anesthesia/Blood Transfusion Reactions: Motion Sickness Past Psychological History: Anxiety Smoking Status: Current every day smoker Past Alcohol Use History: None Reported Past Drug Use History: None Reported - Past Family History Father Family Medical History: Hypertension, Myocardial Infarction ([place]) Additional Family Medical History / Comment(s): AT AGE 63 Mother Family Medical History: Diabetes Mellitus, Dialysis Additional Family Medical History / Comment(s): MOM UNK AGE-COMPLICATIONS FROM DIABETES Sister(s) Family Medical History: Diabetes Mellitus <Gill Tate - Last Filed: 11/04/18 15:43> General Exam Limitations: no limitations <Gill Tate - Last Filed: 11/04/18 15:43> - General Exam Comments Initial Comments: This is a 63-year-old female. Alert and oriented 3. No significant distress. General: Well appearing, well nourished, in no distress. Oriented x 3, normal m ood and affect . Ambulating without difficulty. Skin: Good turgor, no rash, unusual bruising or prominent lesions Hair: Normal texture and distribution. HEENT: Head: Normocephalic, atraumatic, no visible or palpable masses, depressions, or scaring. Eyes: Visual acuity intact, conjunctiva clear, sclera non-icteric, EOM intact, PERRL. Ears: EACs clear, TMs translucent & cone of light visualized. hearing intact. Nose: No external lesions, mucosa non-inflamed, septum and turbinates normal Mouth: Mucous membranes moist, no mucosal lesions. Teeth/Gums: No obvious caries or periodontal disease. No gingival inflammation or significant resorption. Pharynx: Mucosa non-inflamed, no tonsillar hypertrophy or exudate Neck: Supple, without lesions, bruits, or adenopathy, thyroid non-enlarged and non-tender Heart: No cardiomegaly or thrills; regular rate and rhythm, no murmur or gallop Lungs: Clear to auscultation, or wheezing Abdomen: Bowel sounds normal, no tenderness, organomegaly, masses, or hernia Back: Spine normal without deformity or tenderness, no CVA tenderness Extremities: No amputations or deformities, cyanosis, edema or varicosities, peripheral pulses intact Musculoskeletal: Normal gait and station. No misalignment, asymmetry, crepitation, defects, tenderness, masses, effusions, decreased range of motion, instability, atrophy or abnormal strength or tone in the head, neck, spine, ribs, pelvis or extremities. Neurologic: CN 2-12 normal. Sensation to pain, touch, and proprioception normal. DTRs normal in upper and lower extremities. No pathologic reflexes. Psychiatric: Oriented X3, intact recent and remote memory, judgment and insight, normal mood and affect. 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 Audit Clerk ] Respiratory 18 18 Rate Blood Pressure 139/79 148/61 O2 Sat by Pulse 92 L 92 L Oximetry - Reevaluation(s) Reevaluation #1: 11/04/18 15:28 PA supervision: I proceeded [id number] evaluation the patient did discuss findings with her. Patient did present with chest pain it was typical of acute coronary syndrome. Patient will be admitted she was started on heparin. I did discuss the case with Dr. Kat. Cardiology will be consulted. I do agree with assessment and plan (Mauricio Ackerman) Reevaluation #2: 11/04/18 16:57 Late entry compliance monitor was ordered on this patient due to the chest pain. This was to rule out dysrhythmia. He had a heart rate of approximately 84 which is normal sinus Evidence of any overt dysrhythmia changes. (Mauricio Ackerman) Chest Pain MDM <Gill Tate - Last Filed: 11/04/18 15:43> - MDM 63-year-old female smoker with history of stroke presents today with chest pain starting at 3 AM. At this time EKG shows show some T-wave inversions in the anterior leads. Troponin test is negative. She was given aspirin and nitro. She does report some pain relief after nitro. Patient's chest x-ray is negative for any acute process. Patient was admitted this time with consult to cardiology. Greater than 15 minutes spent with Patient discussing smoking cessation. (Gill Tate) Disposition Is patient prescribed a controlled substance at d/c from ED?: No Time of Disposition: 15:45 <Gill Tate - Last Filed: 11/04/18 15:43> <Mauricio Ackerman - Last Filed: 11/04/18 16:57> Clinical Impression: Chest pain, Needs smoking cessation education, Smoking Disposition: ADMITTED IP TO THIS HOSP Condition: Stable
[2018-11-04 13:53] LABS: Basophils % (A) 0 %; Eosinophils # (A) 0.2 k/uL (0-0.7); Eosinophils % (A) 2 %; HCT 44.7 % (34.0-46.0); Lymphocytes # (A) 1.7 k/uL (1.0-4.8); Lymphocytes % (A) 14 %; MCH 28.5 pg (25.0-35.0); MCHC 33.5 g/dL (31.0-37.0); MCV 85.1 fL (80.0-100.0); Mean Platelet Volume 6.6; Monocytes # (A) 0.6 k/uL (0-1.0); Monocytes % (A) 5 %; Neutrophils % (A) 79 %; Platelet Count 366 k/uL (150-450); RBC 5.25 m/uL (3.80-5.40); RDW 15.5 % (11.5-15.5); WBC 12.6 k/uL (3.8-10.6)
--- NOTE | 2018-11-04 13:55 | XR ---
EXAMINATION TYPE: XR chest 2V DATE OF EXAM: 11/04/2018 COMPARISON: 01/13/2018 HISTORY: Shortness of breath TECHNIQUE: Frontal and lateral views of the chest are obtained. FINDINGS: Scattered senescent parenchymal changes noted. Hyperinflation compatible with COPD. No evidence for infiltrate. No evidence for atelectasis. Heart size is stable. Mediastinal structures are stable and grossly unremarkable. No evidence for hilar prominence. Degenerative changes dorsal spine. IMPRESSION: 1. No evidence for acute pulmonary disease.
[2018-11-04 14:05] LABS: ALT 30 U/L (9-52); AST 16 U/L (14-36); Albumin 4.1 g/dL (3.5-5.0); Alkaline Phosphatase 149 U/L (38-126); Amylase 35 U/L (30-110); Anion Gap 9 mmol/L; Blood Urea Nitrogen 14 mg/dL (7-17); Calcium 9.2 mg/dL (8.4-10.2); Carbon Dioxide 24 mmol/L (22-30); Chloride 106 mmol/L (98-107); Glucose 139 mg/dL (74-99); Lipase 162 U/L (23-300); Magnesium 1.9 mg/dL (1.6-2.3); Potassium 3.6 mmol/L (3.5-5.1); Sodium 139 mmol/L (137-145); Total Bilirubin 0.4 mg/dL (0.2-1.3); Total Protein 7.4 g/dL (6.3-8.2)
[2018-11-04 14:12] LABS: D-Dimer 0.33 mg/L FEU (<0.60); INR 0.9 (<1.2); Partial Thromboplastin Time 22.1 sec (22.0-30.0); Prothrombin Time 9.5 sec (9.0-12.0)
[2018-11-04] MEDS ORDERED: hydrOXYzine PAMOATE 25 MG CAP PO PRN ×2 (15:38→22:15)
[2018-11-04] MEDS ORDERED: ALBUTEROL NEBULIZED 2.5 MG/3 ML INHALATION PRN (15:38)
[2018-11-04] MEDS ORDERED: MECLIZINE 25 MG TAB PO PRN (15:38)
[2018-11-04] MEDS ORDERED: NITROGLYCERIN SL TABS 0.4 MG TAB SUBLINGUAL PRN (15:46)
--- NOTE | 2018-11-04 15:56 | P.HPIM ---
History of Present Illness H&P Date: 11/04/18 This is a 63-year-old female patient of Dr. pereira. Patient presented to the hospital with complaints of chest pain. Patient reports that chest pain started around 3 AM. Patient also reports that she got diaphoretic and nauseated. Patient reports that the pain radiated towards neck and back. Patient describes pain as stabbing. Patient reports that pain lasted for approximately 1 hour. Patient reports that she's had a heart catheterization in 2012 in which she did not receive any stents. Patient also appears to have stress test completed in December 2017 which did not require any further workup. Additional medical history includes smoker, essential hypertension, CVA, diabetes mellitus, hypertension, cholecystectomy and anxiety. Initial troponin negative. Chest x-ray completed showing no evidence for acute pulmonary disease. EKG completed showing normal sinus rhythm, ST and T-wave abnormality, consider anterior ischemia with a prolonged, prolonged QT. Patient's white blood cell count also slightly elevated at 12.6. Patient is complaining of some burning with urination or urinary analysis this time. Patient denies cough. Patient denies nausea vomiting or diarrhea. Cardiology services have been consulted. Review of Systems Please refer to HPI otherwise unremarkable Past Medical History Past Medical History: CVA/TIA, Diabetes Mellitus, Hypertension Additional Past Medical History / Comment(s): COPD, chronic back pain, Vertigo History of Any Multi-Drug Resistant Organisms: None Reported Past Surgical History: Cholecystectomy, Heart Catheterization Additional Past Surgical History / Comment(s): epidural injections, rhizotomy involving the lumbar spine for chronic back pain, cardiac catheterization, cholecystectomy Past Anesthesia/Blood Transfusion Reactions: Motion Sickness Past Psychological History: Anxiety Smoking Status: Current every day smoker Past Alcohol Use History: None Reported Past Drug Use History: None Reported - Past Family History Father Family Medical History: Hypertension, Myocardial Infarction ([place]) Additional Family Medical History / Comment(s): AT AGE 63 Mother Family Medical History: Diabetes Mellitus, Dialysis Additional Family Medical History / Comment(s): MOM UNK AGE-COMPLICATIONS FROM DIABETES Sister(s) Family Medical History: Diabetes Mellitus Medications and Allergies Home Medications Medication Instructions Recorded Confirmed Type Loratadine [Claritin] 10 mg PO DAILY 01/01/16 11/04/18 History Meclizine HCl 25 mg PO Q6H PRN 01/01/16 11/04/18 History Montelukast [Singulair] 10 mg PO HS 01/01/16 11/04/18 History Cholecalciferol [Vitamin D3] 5,000 unit PO DAILY 01/02/16 11/04/18 History Fluticasone Nasal [place] [Flonase 2 spray EA NOSTRIL DAILY 01/02/16 11/04/18 History Nasal [place]] amLODIPine [Norvasc] 10 mg PO DAILY 01/02/16 11/04/18 History Albuterol Sulfate [Proair Hfa] 2 puff INHALATION RT-Q4H PRN 10/29/17 11/04/18 History Aspirin EC [Ecotrin Low Dose] 81 mg PO DAILY 10/29/17 11/04/18 History DULoxetine HCL [Cymbalta] 60 mg PO DAILY 10/29/17 11/04/18 History hydrOXYzine PAMOATE [Vistaril] 50 mg PO TID PRN 10/29/17 11/04/18 History Atorvastatin [Lipitor] 40 mg PO DAILY 01/13/18 11/04/18 History Hydrocodone/Acetaminophen [[place] 1 tab PO Q8H PRN 01/13/18 11/04/18 History 10-325] Insulin Aspart [NovoLOG Flexpen] See Protocol SQ AC-TID 01/13/18 11/04/18 H istory Insulin Glargine [Lantus] 10 unit SQ HS 01/13/18 11/04/18 History Fluticasone Propionate [Flovent 1 puff INHALATION RT-BID 11/04/18 11/04/18 History Diskus] Allergies Allergy/AdvReac Type Severity Reaction Status Date / Time baclofen Allergy Unknown Verified 11/04/18 13:45 gabapentin Allergy Anaphylaxis Verified 11/04/18 13:45 naproxen Allergy Swelling Verified 11/04/18 13:45 Physical Exam Vitals: Vital Signs Temp Pulse Pulse Resp BP Pulse Ox 11/04/18 14:51 82 18 139/79 92 L 11/04/18 14:15 86 18 139/75 99 11/04/18 13:34 82 11/04/18 12:55 97.9 F 88 18 137/80 90 L Intake and Output 11/04/18 11/04/18 11/04/18 06:59 14:59 22:59 Other: Weight 58.06 kg Head normocephalic Neck supple Lungs clear to auscultation bilaterally no wheezing or crackles Heart regular rate and rhythm S1-S2, no rub or gallop Abdomen is soft nontender nondistended positive bowel sounds no hepatosplenomegaly Extremities no edema Neuro alert and orientated to 3 Results CBC & Chem 7: 11/04/18 13:30 11/04/18 13:30 Labs: Abnormal Lab Results - Last 24 Hours (Table) 11/04/18 11/04/18 Range/Units 13:30 13:30 WBC 12.6 H (3.8-10.6) k/uL Neutrophils # 10.0 H (1.3-7.7) k/uL Glucose 139 H (74-99) mg/dL Alkaline Phosphatase 149 H (38-126) U/L Assessment and Plan Assessment: 1. Chest pain. Initial troponin negative. Chest x-ray showing no acute pulmonary process. D-dimer 0.33. EKG showing normal sinus rhythm, T and T-wave abnormality, consider anterior ischemia. Prolonged QT. Cardiology services have been consulted. Serial troponins ordered. Vistaril has been held due to p rolonged QT 2. Nicotine dependence. Patient educated greater than 3 minutes on smoking cessation. Patient declines nicotine patch at this time 3. Previous heart cath and stress test. Patient had her Completed in 2012 without any significant findings. Patient also had stress test completed December 2017 4. Essential hypertension 5. History of CVA 6. Diabetes mellitus 7. Cholecystectomy 8. Anxiety 9. Leukocytosis. White blood cell 12.6. Patient is complaining of burning with urination Will order UA at this time chest x-ray negative Time with Patient: Greater than 30 (Greater than 60% of the total time spent in counseling and coordination of care. I performed an examination of the patient and discussed their management with the Nurse Practitioner. I have reviewed the Nurse Practitioner's notes and agree with the documented findings and plan of care)
[2018-11-04 17:39] LABS: Glucose,Whole Blood 160 mg/dL (75-99)
[2018-11-04] MEDS: INSULIN ASPART (NovoLOG) 100 UNIT/ML VIAL SQ SCH ×2 (17:40→21:18)
[2018-11-04] MEDS ORDERED: FLUTICASONE 110 MCG INHALER INHALATION SCH (20:00)
[2018-11-04 20:38] LABS: Glucose,Whole Blood 199 mg/dL (75-99)
[2018-11-04] MEDS: HYDROcodone/APAP 10-325MG 1 EACH TAB PO PRN (21:16)
[2018-11-04] MEDS: INSULIN DETEMIR (LEVEMIR) 100 UNIT/ML SYR SQ SCH (21:17)
[2018-11-04] MEDS: MONTELUKAST 10 MG TAB PO SCH (21:17)
[2018-11-04 23:45] LABS: Appearance,Urine Clear (Clear); Bacteria,Urine Rare /hpf; Bilirubin,Urine Negative (Negative); Blood,Urine Negative (Negative); Color,Urine Light Yellow; Glucose,Urine (UA) Trace (Negative); Ketones,Urine Negative (Negative); Leukocyte Esterase,Urine Small (Negative); Mucus,Urine Rare /hpf; Nitrite,Urine Negative (Negative); Protein,Urine Negative (Negative); RBC,Urine <1 /hpf (0-5); Specific Gravity,Urine 1.009 (1.001-1.035); Squamous Epithelial Cell,Urine 1 /hpf (0-4); Urobilinogen,Urine <2.0 mg/dL (<2.0); WBC,Urine 4 /hpf (0-5)
[2018-11-05 07:38] LABS: Glucose,Whole Blood 134 mg/dL (75-99)
[2018-11-05 07:44] LABS: Basophils # (A) 0.1 k/uL (0-0.2); Basophils % (A) 1 %; Eosinophils # (A) 0.5 k/uL (0-0.7); Eosinophils % (A) 5 %; HCT 42.3 % (34.0-46.0); HGB 14.1 gm/dL (11.4-16.0); Lymphocytes # (A) 2.7 k/uL (1.0-4.8); Lymphocytes % (A) 25 %; MCH 28.6 pg (25.0-35.0); MCHC 33.4 g/dL (31.0-37.0); MCV 85.7 fL (80.0-100.0); Mean Platelet Volume 7.1; Monocytes # (A) 0.5 k/uL (0-1.0); Monocytes % (A) 5 %; Neutrophils # (A) 7.1 k/uL (1.3-7.7); Neutrophils % (A) 64 %; Platelet Count 325 k/uL (150-450); RBC 4.93 m/uL (3.80-5.40); RDW 15.4 % (11.5-15.5)
[2018-11-05 07:56] LABS: ALT 68 U/L (9-52); AST 43 U/L (14-36); Albumin 3.5 g/dL (3.5-5.0); Alkaline Phosphatase 162 U/L (38-126); Anion Gap 7 mmol/L; Blood Urea Nitrogen 10 mg/dL (7-17); Calcium 8.9 mg/dL (8.4-10.2); Carbon Dioxide 25 mmol/L (22-30); Chloride 108 mmol/L (98-107); Cholesterol 135 mg/dL (<200); Glucose 115 mg/dL (74-99); HDL Cholesterol 41 mg/dL (40-60); LDL Cholesterol,Calculated 71 mg/dL (0-99); Potassium 3.4 mmol/L (3.5-5.1); Sodium 140 mmol/L (137-145); Total Bilirubin 0.3 mg/dL (0.2-1.3); Total Protein 6.5 g/dL (6.3-8.2); Triglycerides 114 mg/dL (<150)
[2018-11-05] MEDS ORDERED: Potassium Replacement Protocol 1 EACH MISC MISCELLANE PRN (08:34)
[2018-11-05] MEDS ORDERED: DOBUTamine DRIP for NUC MED 500 MG in DEXTROSE/WATER 1 250ML.BAG IV ONE (08:39)
[2018-11-05] MEDS ORDERED: ASPIRIN 325 MG TAB PO SCH (09:00)
[2018-11-05] MEDS ORDERED: IPRATROPIUM-ALBUTEROL 3 ML NEB INHALATION PRN (09:22)
--- NOTE | 2018-11-05 09:25 | US ---
EXAMINATION TYPE: US liver DATE OF EXAM: 11/05/2018 COMPARISON: NONE CLINICAL HISTORY: elevated liver enzymes. Chest pain and nausea x 1 day, history of cholecystectomy EXAM MEASUREMENTS: Liver Length: 15.9 cm Gallbladder Wall: surgically absent CBD: 0.5 cm Right Kidney: 9.5 x 4.9 x 4.8 cm Pancreas: visualized portions wnl, limited by overlying midline bowel gas Liver: mildly heterogeneous Gallbladder: surgically absent Evidence for sonographic Moore's sign: no CBD: visualized portions wnl, limited by overlying bowel gas Right Kidney: wnl IMPRESSION: 1. Heterogeneous pattern to the liver is nonspecific and be seen with hepatitis or fatty infiltration . 2. Postcholecystectomy.
--- NOTE | 2018-11-05 10:29 | P.PN ---
Subjective Progress Note Date: 11/05/18 This is a 63-year-old female patient of Dr. pereira. Patient presented to the hospital with complaints of chest pain. Patient reports that chest pain started around 3 AM. Patient also reports that she got diaphoretic and nauseated. Patient reports that the pain radiated towards neck and back. Patient describes pain as stabbing. Patient reports that pain lasted for approximately 1 hour. Patient reports that she's had a heart catheterization in 2012 in which she did not receive any stents. Patient also appears to have stress test completed in December 2017 which did not require any further workup. Additional medical history includes smoker, essential hypertension, CVA, diabetes mellitus, hypertension, cholecystectomy and anxiety. Initial troponin negative. Chest x-ray completed showing no evidence for acute pulmonary disease. EKG completed showing normal sinus rhythm, ST and T-wave abnormality, consider anterior ischemia with a prolonged, prolonged QT. Patient's white blood cell count also slightly elevated at 12.6. Patient is complaining of some burning with urination or urinary analysis this time. Patient denies cough. Patient denies nausea vomiting or diarrhea. Cardiology services have been consulted. On 11/05/2018 patient is alert and oriented 3. At this time patient is complaining of increased shortness of breath. Patient currently on 3 L in which she does not wear at home. D-dimer was completed yesterday 0.33. Chest x-ray showing no acute pulmonary process. At this time due to increased shortness of breath will order BNP 2-D echo and consult pulmonary services. Cardiology services are following planning stress test later today. Liver enzymes trending up today despite holding Lipitor. Liver ultrasound ordered. At this time patient denies any chest pain. Patient denies nausea vomiting or diarrhea. Patient is having burning with urination. UA completed showing small amount of leukocyte Estrace. Patient started on Rocephin for urinary tract infection Objective - Vital Signs Vital signs: Vital Signs Temp 97.7 F 11/05/18 08:00 Pulse 69 11/05/18 08:00 Resp 18 11/05/18 08:00 BP 136/72 11/05/18 08:00 Pulse Ox 91 L 11/05/18 08:00 Intake & Output 11/04/18 11/05/18 11/05/18 18:59 06:59 18:59 Intake Total 236 500 Balance 236 500 Weight 58.06 kg Intake: IV 500 Sodium Chloride 0.9% 1, 500 000 ml @ 100 mls/hr IV . Q10H STA Rx#:[id number] Oral 236 Other: Voiding Method Toilet Toilet # Voids 1 1 - Exam Head normocephalic Neck supple Lungs clear to auscultation bilaterally no wheezing or crackles Heart regular rate and rhythm S1-S2, no rub or gallop Abdomen is soft nontender nondistended positive bowel sounds no hepatosplenomegaly Extremities no edema Neuro alert and orientated to 3 - Labs CBC & Chem 7: 11/05/18 07:20 11/05/18 07:20 Labs: Abnormal Lab Results - Last 24 Hours (Table) 11/04/18 11/04/18 11/04/18 Range/Units 13:30 13:30 17:26 WBC 12.6 H (3.8-10.6) k/uL Neutrophils # 10.0 H (1.3-7.7) k/uL Potassium (3.5-5.1) mmol/L Chloride (98-107) mmol/L Glucose 139 H (74-99) mg/dL POC Glucose (mg/dL) 160 H (75-99) mg/dL AST (14-36) U/L ALT (9-52) U/L Alkaline Phosphatase 149 H (38-126) U/L Urine Glucose (UA) (Negative) Ur Leukocyte Esterase (Negative) Urine Bacteria (None) /hpf Urine Mucus (None) /hpf 11/04/18 11/04/18 11/05/18 Range/Units 20:24 23:02 07:20 WBC 11.0 H (3.8-10.6) k/uL Neutrophils # (1.3-7.7) k/uL Potassium (3.5-5.1) mmol/L Chloride (98-107) mmol/L Glucose (74-99) mg/dL POC Glucose (mg/dL) 199 H (75-99) mg/dL AST (14-36) U/L ALT (9-52) U/L Alkaline Phosphatase (38-126) U/L Urine Glucose (UA) Trace H (Negative) Ur Leukocyte Esterase Small H (Negative) Urine Bacteria Rare H (None) /hpf Urine Mucus Rare H (None) /hpf 11/05/18 11/05/18 Range/Units 07:20 07:35 WBC (3.8-10.6) k/uL Neutrophils # (1.3-7.7) k/uL Potassium 3.4 L (3.5-5.1) mmol/L Chloride 108 H (98-107) mmol/L Glucose 115 H (74-99) mg/dL POC Glucose (mg/dL) 134 H (75-99) mg/dL AST 43 H (14-36) U/L ALT 68 H (9-52) U/L Alkaline Phosphatase 162 H (38-126) U/L Urine Glucose (UA) (Negative) Ur Leukocyte Esterase (Negative) Urine Bacteria (None) /hpf Urine Mucus (None) /hpf Assessment and Plan Assessment: 1. Chest pain. Initial troponin negative. Chest x-ray showing no acute pulmonary process. D-dimer 0.33. EKG showing normal sinus rhythm, T and T-wave abnormality, consider anterior ischemia. Prolonged QT. Cardiology services have been consulted. Serial troponins ordered. Vistaril has been held due to prolonged QT. Serial troponins negative. Per cardiology planning stress test today 2. Nicotine dependence. Patient educated greater than 3 minutes on smoking cessation. Patient declines nicotine patch at this time 3. Previous heart cath and stress test. Patient had her Completed in 2012 without any significant findings. Patient also had stress test completed December 2017 4. Essential hypertension 5. History of CVA 6. Diabetes mellitus 7. Cholecystectomy 8. Anxiety 9. Urinary tract infection with leukocytosis. White blood cell 12.6. Patient is complaining of burning with urination Will order UA at this time chest x-ray negative. UA showing leukocyte Estrace. Will start patient on Rocephin. Urine Culture ordered 10. Increased shortness of breath. D-dimer 0.33 on admission. Chest x-ray completed showing no evidence for acute pulmonary disease. At this time will order BNP level, 2-D echo, updraft breathing treatments and consult pulmonary services 11. Elevated liver enzymes. Statin was held upon admission. Liver enzymes trending up. AST 43, ALT 68 and alkaline phosphatase 162 DVT prophylaxis Lovenox. GI prophylaxis Protonix I performed an examination of the patient and discussed their management with the Nurse Practitioner. I have reviewed the Nurse Practitioner's notes and a gree with the documented findings and plan of care
[2018-11-05] MEDS ORDERED: ATROPINE SULFATE 0.1 MG/ML 10ML SYRINGE ONE (10:50)
[2018-11-05] MEDS: IPRATROPIUM-ALBUTEROL 3 ML NEB INHALATION SCH ×3 (11:04→19:33)
[2018-11-05] MEDS ORDERED: TERBUTALINE FOR EXTRAVASATION 1 MG/ML VIAL SQ STA (11:13)
--- NOTE | 2018-11-05 11:25 | P.CRDCN ---
History of Present Illness History of present illness: This is a pleasant 63-year-old female past medical history significant for hypertension, dyslipidemia, diabetes mellitus and chronic nicotine dependence. She also has chronic T-wave inversions in the anterior lateral leads. She does not follow with cardiology. She underwent cardiac catheterization in 2012 revealing 20-30% disease in the proximal distal RCA otherwise normal LAD, circumflex and left main. We have been asked to see her in consultation for symptoms of chest discomfort. She states yesterday while sitting down she felt a sharp pain in the left precordial region with radiation to the left shoulder associated with shortness of breath and diaphoresis. The symptoms persisted for approximately one hour. Upon arrival to the emergency department she was continuing to have discomfort and was given sublingual nitroglycerin along with Marcaine and IV. Her symptoms subsided and she has had no further symptoms chest discomfort since that time. EKG on arrival reveals sinus mechanism with T-wave inversions noted in the anterior leads. When compared to previous EKGs this is chronic and ongoing. Chest x-ray is negative for an acute cardiopulmonary process. Laboratory data reviewed, WBC 11, hemoglobin 14.1, platelets 325, d-dimer 0.33, sodium 140, potassium 3.4, creatinine 0.56, magnesium 1.9, cardiac enzymes negative 3, LDL 71 and HDL 41. NT proBNP 64. Current cardiac medications include aspirin 81 mg daily, amlodipine 10 mg daily, atorvastatin 40 mg daily. Most recent echocardiogram obtained October 2017 reveals preserved left ventricular systolic function with ejection fraction 60-65%. Most recent stress test performed December 2017 reveals normal EKG and echoc ardiographic response to exercise however 76% of maximum predicted heart rate was achieved. At the time of my exam: CONSTITUTIONAL: Denies fever. Denies chills. EYES: Denies blurred vision. Denies vision changes. Denies eye pain. EARS, NOSE, MOUTH & THROAT: Denies headache. Denies sore throat. Denies ear pain. CARDIOVASCULAR: Denies chest pain. Denies shortness of breath. Denies orthopnea. Denies PND. Denies palpitations. RESPIRATORY: Denies cough. GASTROINTESTINAL: Denies abdominal pain. Denies diarrhea. Denies constipation. Denies nausea. Denies vomiting. MUSCULOSKELETAL: Denies myalgias. INTEGUMENTARY: Denies pruitis. Denies rash. NEUROLOGIC: Denies numbness. Denies tingling. Denies weakness. PSYCHIATRIC: Denies anxiety. Denies depression. ENDOCRINE: Denies fatigue. Denies weight change. Denies polydipsia. Denies polyurina. GENITOURINARY: Denies burning, hematuria or urgency with micturation. HEMATOLOGIC: Denies history of anemia. Denies bleeding. Blood pressure 136/72 heart rate 69 afebrile maintaining oxygen saturation on nasal cannula GENERAL: This is a 63-year-old female in no apparent distress at the time of my examination. HEENT: Head is atraumatic, normocephalic. Pupils are equal, round. Sclerae anicteric. Conjunctivae are clear. Mucous membranes of the mouth are moist. Neck is supple. There is no jugular venous distention. No carotid bruit is heard. LUNGS: Clear to auscultation no wheezes, rales or rhonchi. No chest wall tenderness is noted on palpation or with deep breathing. HEART: Regular rate and rhythm without murmurs, rubs or gallops. S1 and S2 heard. ABDOMEN: Soft, nontender. Bowel sounds are heard. No organomegaly noted. EXTREMITIES: No evidence of peripheral edema and no calf tenderness noted. VASCULAR: Radial and dorsalis pedis pulses palpated, no evidence of clubbing. NEUROLOGIC: Patient is awake, alert and oriented x3. ASSESSMENT Chest pain, atypical for angina. Baseline EKG abnormalities or chronic. Hypoxia History of mild nonobstructive coronary artery disease per cath in 2012. EKG abnormalities were evident at that time as well. Hypertension Dyslipidemia Diabetes mellitus Chronic nicotine dependence History of CVA in the past with no residual deficit PLAN Acute coronary event has been ruled out. 2-D echocardiogram and Doppler study has been ordered by primary care team and will be reviewed. Perform dobutamine stress echocardiogram to assess for stress-induced ischemia. Continue aspirin, amlodipine and atorvastatin. If stress test is normal she is stable from a cardiac perspective. Follow up with Dr. Cuellar in 2 weeks. Thank you kindly for this consultation. Nurse Practitioner note has been reviewed, I agree with a documented findings and plan of care. Patient was seen and examined. Past Medical History Past Medical History: CVA/TIA, Diabetes Mellitus, Eye Disorder, Hyperlipidemia, Hypertension Additional Past Medical History / Comment(s): COPD, chronic back pain, Vertigo History of Any Multi-Drug Resistant Organisms: None Reported Past Surgical History: Cholecystectomy, Heart Catheterization Additional Past Surgical History / Comment(s): epidural injections, rhizotomy involving the lumbar spine for chronic back pain, cardiac catheterization, cholecystectomy Past Anesthesia/Blood Transfusion Reactions: Motion Sickness Past Psychological History: Anxiety Smoking Status: Current every day smoker Past Alcohol Use History: None Reported Additional Past Alcohol Use History / Comment(s): STARTED SMOKING AT AGE 28 IPPD HAS RECENTLY CUT DOWN TO 3 CIG/DAY Past Drug Use History: None Reported - Past Family History Father Family Medical History: Hypertension, Myocardial Infarction ([place]) Additional Family Medical History / Comment(s): AT AGE 63 Mother Family Medical History: Diabetes Mellitus, Dialysis Additional Family Medical History / Comment(s): MOM UNK AGE-COMPLICATIONS FROM DIABETES Sister(s) Family Medical History: Diabetes Mellitus Medications and Allergies Home Medications Medication Instructions Recorded Confirmed Type Loratadine [Claritin] 10 mg PO DAILY 01/01/16 11/04/18 History Meclizine HCl 25 mg PO Q6H PRN 01/01/16 11/04/18 History Montelukast [Singulair] 10 mg PO HS 01/01/16 11/04/18 History Cholecalciferol [Vitamin D3] 5,000 unit PO DAILY 01/02/16 11/04/18 History Fluticasone Nasal Ava [Flonase 2 spray EA NOSTRIL DAILY 01/02/16 11/04/18 History Nasal Ava] amLODIPine [Norvasc] 10 mg PO DAILY 01/02/16 11/04/18 History Albuterol Sulfate [Proair Hfa] 2 puff INHALATION RT-Q4H PRN 10/29/17 11/04/18 History Aspirin EC [Ecotrin Low Dose] 81 mg PO DAILY 10/29/17 11/04/18 History DULoxetine HCL [Cymbalta] 60 mg PO DAILY 10/29/17 11/04/18 History hydrOXYzine PAMOATE [Vistaril] 50 mg PO TID PRN 10/29/17 11/04/18 History Atorvastatin [Lipitor] 40 mg PO DAILY 01/13/18 11/04/18 History Hydrocodone/Acetaminophen [[place] 1 tab PO Q8H PRN 01/13/18 11/04/18 History 10-325] Insulin Aspart [NovoLOG Flexpen] See Protocol SQ AC-TID 01/13/18 11/04/18 History Insulin Glargine [Lantus] 10 unit SQ HS 01/13/18 11/04/18 History Fluticasone Propionate [Flovent 1 puff INHALATION RT-BID 11/04/18 11/04/18 History Diskus] Allergies Allergy/AdvReac Type Severity Reaction Status Date / Time baclofen Allergy Unknown Verified 11/04/18 13:45 gabapentin Allergy Anaphylaxis Verified 11/04/18 13:45 naproxen Allergy Swelling Verified 11/04/18 13:45 Physical Exam Vitals: Vital Signs Temp Pulse Pulse Pulse Resp BP BP 11/05/18 04:00 98.0 F 70 16 125/73 11/05/18 03:49 16 11/05/18 00:00 16 11/04/18 23:50 98.3 F 82 16 122/66 11/04/18 20:00 98.1 F 88 16 129/64 11/04/18 17:22 97.5 F L 77 18 144/75 11/04/18 16:25 82 18 148/61 11/04/18 14:51 82 18 139/79 11/04/18 14:15 86 18 139/75 11/04/18 13:34 82 11/04/18 12:55 97.9 F 88 18 137/80 Pulse Ox 11/05/18 04:00 93 L 11/05/18 03:49 11/05/18 00:00 11/04/18 23:50 93 L 11/04/18 20:00 88 L 11/04/18 17:22 93 L 11/04/18 16:25 92 L 11/04/18 14:51 92 L 11/04/18 14:15 99 11/04/18 13:34 11/04/18 12:55 90 L Intake and Output 11/04/18 11/05/18 11/05/18 22:59 06:59 14:59 Intake Total 236 500 Balance 236 500 Intake: IV 500 Sodium Chloride 0.9% 1, 500 000 ml @ 100 mls/hr IV . Q10H STA Rx#:[id number] Oral 236 Other: Voiding Method Toilet Toilet # Voids 1 1 Results 11/05/18 07:20 11/05/18 07:20 Cardiac Enzymes 11/04/18 11/04/18 11/04/18 Range/Units 13:30 13:30 20:43 AST 16 (14-36) U/L Troponin I <0.012 <0.012 (0.000-0.034) ng/mL 11/05/18 Range/Units 01:06 AST (14-36) U/L Troponin I <0.012 (0.000-0.034) ng/mL Coagulation 11/04/18 Range/Units 13:30 PT 9.5 (9.0-12.0) sec APTT 22.1 (22.0-30.0) sec CBC 11/04/18 Range/Units 13:30 WBC 12.6 H (3.8-10.6) k/uL RBC 5.25 (3.80-5.40) m/uL Hgb 15.0 (11.4-16.0) gm/dL Hct 44.7 (34.0-46.0) % Plt Count 366 (150-450) k/uL Comprehensive Metabolic Panel 11/04/18 Range/Units 13:30 Sodium 139 (137-145) mmol/L Potassium 3.6 (3.5-5.1) mmol/L Chloride 106 (98-107) mmol/L Carbon Dioxide 24 (22-30) mmol/L BUN 14 (7-17) mg/dL Creatinine 0.57 (0.52-1.04) mg/dL Glucose 139 H (74-99) mg/dL Calcium 9.2 (8.4-10.2) mg/dL AST 16 (14-36) U/L ALT 30 (9-52) U/L Alkaline Phosphatase 149 H (38-126) U/L Total Protein 7.4 (6.3-8.2) g/dL Albumin 4.1 (3.5-5.0) g/dL Current Medications Generic Name Dose Route Start Last Admin Trade Name Freq PRN Reason Stop Dose Admin Hydrocodone Bitart/Acetaminophen 1 each 11/04/18 15:38 11/04/18 21:16 [place] 10 PO 1 each Q8H PRN Administration Pain Albuterol Sulfate 2.5 mg 11/04/18 15:38 Ventolin Nebulized INHALATION RT-Q4H PRN Cough Amlodipine Besylate 10 mg 11/05/18 09:00 Norvasc PO DAILY JOSE Aspirin 81 mg 11/05/18 09:00 Aspirin PO DAILY [facility] Cholecalciferol 5,000 unit 11/05/18 09:00 Vitamin D3 PO DAILY [facility] Duloxetine HCl 60 mg 11/05/18 09:00 Cymbalta PO DAILY [facility] Fluticasone Propionate 2 spray 11/05/18 09:00 Flonase Nasal Ava EA NOSTRIL DAILY [facility] Hydroxyzine Pamoate 50 mg 11/04/18 22:15 11/04/18 22:46 Vistaril PO 50 mg Q8HR PRN Administration Anxiety Insulin Aspart 0 unit 11/04/18 17:30 11/04/18 21:18 Novolog SQ 2 unit ACHS JOSE Administration Protocol Insulin Detemir 10 unit 11/04/18 21:00 11/04/18 21:17 Levemir SQ 10 unit HS JOSE Administration Loratadine 10 mg 11/05/18 09:00 Claritin PO DAILY [facility] Meclizine HCl 25 mg 11/04/18 15:38 11/04/18 22:17 Antivert PO 25 mg Q6H PRN Administration Vertigo Montelukast Sodium 10 mg 11/04/18 21:00 11/04/18 21:17 Singulair PO 10 mg HS JOSE Administration Nitroglycerin 0.4 mg 11/04/18 15:46 Nitrostat SUBLINGUAL Q5M PRN Chest Pain Intake and Output 11/04/18 11/05/18 11/05/18 22:59 06:59 14:59 Intake Total 236 500 Balance 236 500 Intake: IV 500 Sodium Chloride 0.9% 1, 500 000 ml @ 100 mls/hr IV . Q10H STA Rx#:[id number] Oral 236 Other: Voiding Method Toilet Toilet # Voids 1 1 11/04/18 13:30 11/04/18 13:30
[2018-11-05] MEDS: INSULIN ASPART (NovoLOG) 100 UNIT/ML VIAL SQ SCH ×4 (11:41→23:32)
[2018-11-05] MEDS: CHOLECALCIFEROL 1,000 UNIT TAB PO SCH (11:45)
[2018-11-05] MEDS: DULoxetine HCL 60 MG CAPSULE.DR PO SCH (11:46)
[2018-11-05] MEDS: POTASSIUM CHLORIDE ER 20 MEQ TAB.ER PO SCH ×2 (11:46→12:53)
[2018-11-05] MEDS: LORATADINE 10 MG TAB PO SCH (11:46)
[2018-11-05] MEDS: ASPIRIN 81 MG PO SCH (11:46)
[2018-11-05] MEDS: FLUTICASONE 50MCG/SPRAY NASAL 16GM EA NOSTRIL SCH (11:46)
[2018-11-05] MEDS: amLODIPine 10 MG TAB PO SCH (11:46)
[2018-11-05] MEDS: ENOXAPARIN 40 MG/0.4 ML SYRINGE SQ SCH (11:46)
[2018-11-05 11:56] LABS: Glucose,Whole Blood 136 mg/dL (75-99)
--- NOTE | 2018-11-05 13:01 | CONS ---
CONSULTATION This is a pulmonary/critical care consultation. REASON FOR CONSULTATION Shortness of breath. This is a 63-year-old female that does have a history of COPD. She was seen by my partner, Dr. Escamilla back in October of 2017, but she never followed up in the office. She has smoked at least 30+ years at a pack a day. Anyway, the patient came into the emergency room on November [address] Ackerman. Apparently, she came in with complaints of chest pain. The pain had apparently been going on for less than a day. She had heaviness to the left side of her chest. In addition, she apparently had some shortness of breath. There was no fever or chills. There is no nausea, vomiting or diarrhea. There was no diaphoresis. The patient apparently was seen in the emergency department and admitted with a diagnosis of chest pain and shortness of breath and kept. The patient was doing relatively well today, when we saw her. She just got back from having had a stress test. The results of the stress test are not known. The patient states that her breathing is much improved. The only thing she apparently uses for breathing is a Ventolin inhaler. Previously when she saw Dr. Escamilla, he recommended a short-acting beta agonist, a long-acting muscarinic antagonist and an inhaled corticosteroid. Again, she never showed up to our office. Never had pulmonary function test. MEDICATIONS: Her home medications include loratadine, meclizine, Singulair, vitamin D3, Flonase nasal spray, Norvasc, albuterol inhaler, aspirin, Cymbalta, Vistaril, Lipitor, [place], insulin, and Flovent, which I do not believe she is actually on. ALLERGIES: Allergies include BACLOFEN, GABAPENTIN, NAPROXEN. MEDICAL HISTORY: Medical history includes COPD, hypertension, diabetes, CVA, chronic back pain, vertigo and anxiety. SURGICAL HISTORY: Surgical history includes cardiac catheterization, cholecystectomy, rhizotomy, epidural injections and some other minor procedures. SOCIAL HISTORY: Social history is positive for ongoing tobacco use. She has been smoking for a number of years. She has smoked about a pack a day. 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 FAMILY HISTORY: Family history is positive for hypertension, myocardial infarction, diabetes, and chronic kidney disease requiring dialysis. REVIEW OF SYSTEMS: CONSTITUTIONAL: Negative. NEUROLOGIC: Negative. HEENT: Negative. CARDIOVASCULAR: Chest pain. PULMONARY: Shortness of breath. GI: Negative. : Negative. RHEUMATOLOGIC: Negative. IMMUNOLOGIC: Negative. ENDOCRINOLOGIC: Negative. DERMATOLOGIC: Negative. PHYSICAL EXAMINATION: Current vital signs are reviewed. Temperature is 98, heart rate 94, respiratory rate 18, blood pressure 131/74, mean arterial pressure 93 and room air saturations were 89%. She appears in no acute distress. HEENT examination is grossly unremarkable. Mucous membranes are moist. NECK: Supple. Full range of motion. No adenopathy or thyromegaly. Neck veins are flat. Cardiovascular examination reveals regular rhythm rate. S1, S2 normal. Heart sounds are regular. There is no heart murmur. Lungs reveal mostly clear breath sounds. A few scattered mild rhonchi. No wheezes or crackles. ABDOMEN: Soft. Bowel sounds are heard. Extremities are intact. There is no cyanosis, clubbing, or edema. Skin without rash. Neurologic examination is brief but nonfocal. A chest x-ray done on admission shows evidence of clear lung nicole. There is no cardiomegaly. No infiltrates or masses noted. A liver ultrasound was done. It shows a pattern that is heterogeneous consistent with either fatty infiltration or hepatitis. The patient has had a cholecystectomy in the past. Stress EKG results are not yet back. Cardiology consultation is noted. Medications are reviewed. ASSESSMENT: 1. Shortness of breath, likely related to underlying mild chronic obstructive pulmonary disease exacerbation. 2. Rule out ischemic cardiac disease. 3. Ongoing tobacco use and nicotine addiction. 4. Diabetes mellitus. 5. Hypertension. 6. History of cerebrovascular accident. 7. History of chronic back pain. 8. History of vertigo. 9. Hyperlipidemia. PLAN: The patient is stable. From the pulmonary standpoint, she could be discharged home. We do recommend that she come and follow up in the office. The office visit will include pulmonary function tests and better determination of her chronic lung condition and some recommendations in regards to medications. We will not be the ones discharging her. It will be the primary service. It will be Dr. Kat or or the candy decorator. This will depend on the results of the stress test. Additional recommendations and suggestions are forthcoming. We counseled her about the importance of smoking cessation. Chest x-ray was reviewed. Nothing on it to be of any concern at this time. MMODL / IJN: [id number] /
--- NOTE | 2018-11-05 13:41 | ECHOF ---
Referral Reason:increase shortness of breath MEASUREMENTS -------- HEIGHT: 152.4 cm WEIGHT: 58.1 kg BP: 136/72 RVIDd: 2.4 cm (< 3.3) IVSd: 1.1 cm (0.6 - 1.1) LVIDd: 3.2 cm (3.9 - 5.3) LVPWd: 1.1 cm (0.6 - 1.1) IVSs: 1.4 cm LVIDs: 2.0 cm LVPWs: 1.3 cm LAESV Index (A-L): 26.28 ml/m Ao Diam: 3.0 cm (2.0 - 3.7) AV Cusp: 1.7 cm (1.5 - 2.6) LA Diam: 2.9 cm (2.7 - 3.8) MV EXCURSION: 17.896 mm (> 18.000) MV EF SLOPE: 80 mm/s (70 - 150) EPSS: 1.0 cm MV E Reggie: 0.80 m/s MV DecT: 222 ms MV A Reggie: 1.00 m/s MV E/A Ratio: 0.81 RAP: 5.00 mmHg RVSP: 21.23 mmHg FINDINGS -------- Sinus rhythm. This was a technically good study. The left ventricular size is normal. There is borderline concentric left ventricular hypertrophy. Overall left ventricular systolic function is normal with, an EF between 55 - 60 %. The right ventricle is normal in size. Normal LA size by volume 22+/-6 ml/m2. The right atrial size is normal. The aortic valve is trileaflet, and appears structurally normal. No aortic stenosis or regurgitation. The mitral valve is normal. Mild mitral regurgitation is present. Trace tricuspid regurgitation present. Right ventricular systolic pressure is normal at < 35 mmHg. The right ventricular systolic pressure, as measured by Doppler, is 21.23mmHg. The pulmonic valve was not well visualized. There is no pulmonic regurgitation present. The aortic root size is normal. Normal inferior vena cava with normal inspiratory collapse consistent with estimated right atrial pre ssure of 5 mmHg. There is no pericardial effusion. CONCLUSIONS -------- 1. Sinus rhythm. 2. This was a technically good study. 3. The left ventricular size is normal. 4. There is borderline concentric left ventricular hypertrophy. 5. Overall left ventricular systolic function is normal with, an EF between 55 - 60 %. 6. Normal LA size by volume 22+/-6 ml/m2. 7. The aortic valve is trileaflet, and appears structurally normal. No aortic stenosis or regurgitati on. 8. Mild mitral regurgitation is present. 9. Trace tricuspid regurgitation present. 10. Right ventricular systolic pressure is normal at < 35 mmHg. 11. The pulmonic valve was not well visualized. 12. The aortic root size is normal. 13. There is no pericardial effusion. SHUTTLE BUGGY OPERATOR: Ricardo Kahn RDCS
--- NOTE | 2018-11-05 14:15 | ECHOS ---
STRESS ECHOCARDIOGRAM INDICATIONS: Chest pain. BASELINE HEART RATE: 72 BASELINE BLOOD PRESSURE: 124/56 MAXIMUM HEART RATE: 128 MAXIMUM BLOOD PRESSURE: 166/59 MAXIMUM STAGE REACHED: 4 TOTAL EXERCISE TIME: 13:24 CLINICAL INFORMATION: Baseline rhythm is sinus mechanism, rate of 72, normal axis and intervals with minor nonspecific ST-T wave changes. Baseline blood pressure 124/56 mmHg. Patient received infusion of dobutamine per protocol. Peak rate 128 beats per minute which is equal to 82% maximum predicted heart rate. Peak blood pressure 166/59 mmHg. Electrocardiograph monitoring revealed occasional PVCs. There was no evidence of diagnostic ischemic ST deviation. FINDING: Baseline echocardiogram revealed normal wall thickening and motion. At peak exercise, there was normal wall motion augmentation with no hypokinesis or dyskinesis. CONCLUSION: 1. Nondiagnostic electrocardiograph in response to dobutamine infusion secondary to baseline EKG abnormality with occasional premature ventricular contractions. 2. Normal stress echocardiogram with no evidence of stress-induced ischemia. MMODL / IJN: [id number] /
[2018-11-05 16:24] LABS: Glucose,Whole Blood 161 mg/dL (75-99)
[2018-11-05] MEDS: INSULIN DETEMIR (LEVEMIR) 100 UNIT/ML SYR SQ SCH (23:28)
[2018-11-05 23:31] LABS: Glucose,Whole Blood 168 mg/dL (75-99)
[2018-11-05] MEDS: MONTELUKAST 10 MG TAB PO SCH (23:35)
[2018-11-05] MEDS: HYDROcodone/APAP 10-325MG 1 EACH TAB PO PRN (23:40)
[2018-11-06 03:53] VITALS: RESP 18
[2018-11-06 06:17] LABS: Basophils % (A) 0 %; Eosinophils # (A) 0.4 k/uL (0-0.7); Eosinophils % (A) 3 %; HCT 43.4 % (34.0-46.0); HGB 14.1 gm/dL (11.4-16.0); Lymphocytes # (A) 3.1 k/uL (1.0-4.8); Lymphocytes % (A) 20 %; MCH 28.4 pg (25.0-35.0); MCHC 32.6 g/dL (31.0-37.0); MCV 87.2 fL (80.0-100.0); Mean Platelet Volume 6.7; Monocytes # (A) 0.7 k/uL (0-1.0); Monocytes % (A) 4 %; Neutrophils # (A) 11.3 k/uL (1.3-7.7); Neutrophils % (A) 72 %; Platelet Count 368 k/uL (150-450); RBC 4.98 m/uL (3.80-5.40); RDW 15.7 % (11.5-15.5); WBC 15.6 k/uL (3.8-10.6)
[2018-11-06 06:28] LABS: ALT 51 U/L (9-52); AST 19 U/L (14-36); Albumin 3.7 g/dL (3.5-5.0); Alkaline Phosphatase 160 U/L (38-126); Anion Gap 8 mmol/L; Blood Urea Nitrogen 11 mg/dL (7-17); Calcium 9.2 mg/dL (8.4-10.2); Carbon Dioxide 24 mmol/L (22-30); Chloride 108 mmol/L (98-107); Glucose 113 mg/dL (74-99); Potassium 3.8 mmol/L (3.5-5.1); Sodium 140 mmol/L (137-145); Total Bilirubin 0.3 mg/dL (0.2-1.3); Total Protein 6.7 g/dL (6.3-8.2)
[2018-11-06] MEDS ORDERED: PANTOPRAZOLE 40 MG TABLET PO SCH (07:30)
[2018-11-06] MEDS: IPRATROPIUM-ALBUTEROL 3 ML NEB INHALATION SCH ×2 (07:36→11:51)
[2018-11-06] MEDS: ENOXAPARIN 40 MG/0.4 ML SYRINGE SQ SCH (08:06)
[2018-11-06] MEDS: CHOLECALCIFEROL 1,000 UNIT TAB PO SCH (08:06)
[2018-11-06] MEDS: amLODIPine 10 MG TAB PO SCH (08:06)
[2018-11-06] MEDS: DULoxetine HCL 60 MG CAPSULE.DR PO SCH (08:06)
[2018-11-06] MEDS: LORATADINE 10 MG TAB PO SCH (08:06)
[2018-11-06] MEDS: ASPIRIN 81 MG PO SCH (08:06)
[2018-11-06] MEDS: INSULIN ASPART (NovoLOG) 100 UNIT/ML VIAL SQ SCH ×2 (08:10→12:01)
[2018-11-06 09:13] VITALS: TEMP 98.3
[2018-11-06] MEDS: FLUTICASONE 50MCG/SPRAY NASAL 16GM EA NOSTRIL SCH (10:40)
[2018-11-06 11:41] LABS: Glucose,Whole Blood 271 mg/dL (75-99)
[2018-11-06 11:56] VITALS: BP 129/71
[2018-11-06 12:00] VITALS: PULSE 74
--- NOTE | 2018-11-06 13:12 | P.DS ---
Providers Date of admission: 11/04/18 15:57 Expected date of discharge: 11/06/18 Attending physician: Shanna Kat Consults: 11/04/18 15:46 Consult Physician Urgent Consulting Provider: Supa Amor Consult Reason/Comments: chest pain Do you want consulting provider notified?: Yes 11/05/18 09:26 Consult Physician Routine Consulting Provider: Mauricio Feliz Consult Reason/Comments: increased shortness of breath Do you want consulting provider notified?: Yes Primary care physician: Kiah Amin Hospital Course: Discharge diagnosis 1. Chest pain. Initial troponin negative. Chest x-ray showing no acute pulmonary process. D-dimer 0.33. EKG showing normal sinus rhythm, T and T-wave abnormality, consider anterior ischemia. Prolonged QT. Cardiology services have been consulted. Troponins negative. 2-D echo completed showing an EF of 55-60%. Dobutamine stress test completed showing normal stress echocardiogram with no evidence of stress-induced ischemia. 2. Nicotine dependence. Patient educated greater than 3 minutes on smoking cessation. Patient declines nicotine patch at this time 3. Previous heart cath and stress test. Patient had her Completed in 2012 without any significant findings. Patient also had stress test completed December 2017 4. Essential hypertension 5. History of CVA 6. Diabetes mellitus 7. Cholecystectomy 8. Anxiety 9. Urinary tract infection with leukocytosis. White blood cell 12.6. Patient is complaining of burning with urination Will order UA at this time chest x-ray negative. UA showing leukocyte Estrace. Will start patient on Rocephin. Urine Culture ordered. Patient will be DC'd on Ceftin for 7 more days 10. Increased shortness of breath related to COPD. D-dimer 0.33 on admission. Chest x-ray completed showing no evidence for acute pulmonary disease. BNP level 153. Per pulmonary services shortness of breath likely related to underlying mild chronic obstructive pulmonary disease exacerbation. Patient has been cleared for discharge from pulmonary standpoint. Patient advised to follow up with pulmonary care in office for pulmonary function test. 11. Elevated liver enzymes. Statin was held upon admission. Liver ultrasound completed showing heterogenous pattern to the liver is nonspecific and may be seen with hepatitis or fatty infiltration. Post cholecystectomy. Liver is enzymes are improving. Hospital course This is a 63-year-old female patient of Dr. amin. Patient presented to the hospital with complaints of chest pain. Patient reports that chest pain started around 3 AM. Patient also reports that she got diaphoretic and nauseated. Patient reports that the pain radiated towards neck and back. Patient describes pain as stabbing. Patient reports that pain lasted for approximately 1 hour. Patient reports that she's had a heart catheterization in 2012 in which she did not receive any stents. Patient also appears to have stress test completed in December 2017 which did not require any further workup. Additional medical history includes smoker, essential hypertension, CVA, diabetes mellitus, hypertension, cholecystectomy and anxiety. Initial troponin negative. Chest x-ray completed showing no evidence for acute pulmonary disease. EKG completed showing normal sinus rhythm, ST and T-wave abnormality, consider anterior ischemia with a prolonged, prolonged QT. Patient's white blood cell count also slightly elevated at 12.6. Patient is complaining of some burning with urination or urinary analysis this time. Patient denies cough. Patient denies nausea vomiting or diarrhea. Cardiology services have been consulted. On 11/05/2018 patient is alert and oriented 3. At this time patient is compl aining of increased shortness of breath. Patient currently on 3 L in which she does not wear at home. D-dimer was completed yesterday 0.33. Chest x-ray showing no acute pulmonary process. At this time due to increased shortness of breath will order BNP 2-D echo and consult pulmonary services. Cardiology services are following planning stress test later today. Liver enzymes trending up today despite holding Lipitor. Liver ultrasound ordered. At this time patient denies any chest pain. Patient denies nausea vomiting or diarrhea. Patient is having burning with urination. UA completed showing small amount of leukocyte Estrace. Patient started on Rocephin for urinary tract infection On 11/06/2017 patient is alert and oriented 3. Patient feels improved from yesterday. Patient has been tolerating room air. Patient was evaluated by pulmonary services. No further workup at this time. Patient advised follow-up outpatient with her testing in regards to COPD. Stress test negative. Patient has been cleared for discharge from cardiology standpoint. Patient will be DC'd home on Ceftin for urinary tract infection. Repeat CBC and CMP ordered to follow-up with leukocytosis and elevated liver enzymes. At this time patient denies chest pain or shortness breath. Patient denies nausea vomiting or diarrhea. Patient denies any urinary burning or frequency I performed an examination of the patient and discussed their management with the Nurse Practitioner. I have reviewed the Nurse Practitioner's notes and agree with the documented findings and plan of care Patient Condition at Discharge: Stable Plan - Discharge Summary Discharge Rx Participant: No New Discharge Prescriptions: New Cefuroxime Axetil [Ceftin] 500 mg PO BID 7 Days #14 tab Continue Montelukast [Singulair] 10 mg PO HS Loratadine [Claritin] 10 mg PO DAILY Meclizine HCl 25 mg PO Q6H PRN PRN Reason: Vertigo Fluticasone Nasal [place] [Flonase Nasal [place]] 2 spray EA NOSTRIL DAILY Cholecalciferol [Vitamin D3] 5,000 unit PO DAILY amLODIPine [Norvasc] 10 mg PO DAILY Aspirin EC [Ecotrin Low Dose] 81 mg PO DAILY Albuterol Sulfate [Proair Hfa] 2 puff INHALATION RT-Q4H PRN PRN Reason: Cough hydrOXYzine PAMOATE [Vistaril] 50 mg PO TID PRN PRN Reason: Anxiety DULoxetine HCL [Cymbalta] 60 mg PO DAILY Hydrocodone/Acetaminophen [[place] 10-325] 1 tab PO Q8H PRN PRN Reason: Pain Insulin Glargine [Lantus] 10 unit SQ HS Insulin Aspart [NovoLOG Flexpen] See Protocol SQ AC-TID Fluticasone Propionate [Flovent Diskus] 1 puff INHALATION RT-BID Discontinued Atorvastatin [Lipitor] 40 mg PO DAILY Discharge Medication List Loratadine [Claritin] 10 mg PO DAILY 01/01/16 [History] Meclizine HCl 25 mg PO Q6H PRN 01/01/16 [History] Montelukast [Singulair] 10 mg PO HS 01/01/16 [History] Cholecalciferol [Vitamin D3] 5,000 unit PO DAILY 01/02/16 [History] Fluticasone Nasal [place] [Flonase Nasal [place]] 2 spray EA NOSTRIL DAILY 01/02/16 [History] amLODIPine [Norvasc] 10 mg PO DAILY 01/02/16 [History] Albuterol Sulfate [Proair Hfa] 2 puff INHALATION RT-Q4H PRN 10/29/17 [History] Aspirin EC [Ecotrin Low Dose] 81 mg PO DAILY 10/29/17 [History] DULoxetine HCL [Cymbalta] 60 mg PO DAILY 10/29/17 [History] hydrOXYzine PAMOATE [Vistaril] 50 mg PO TID PRN 10/29/17 [History] Hydrocodone/Acetaminophen [[place] 10-325] 1 tab PO Q8H PRN 01/13/18 [History] Insulin Aspart [NovoLOG Flexpen] See Protocol SQ AC-TID 01/13/18 [History] Insulin Glargine [Lantus] 10 unit SQ HS 01/13/18 [History] Fluticasone Propionate [Flovent Diskus] 1 puff INHALATION RT-BID 11/04/18 [History] Cefuroxime Axetil [Ceftin] 500 mg PO BID 7 Days #14 tab 11/06/18 [Rx] Follow up Appointment(s)/Referral(s): Chey Cuellar MD [STAFF PHYSICIAN] - 11/18/18 10:15 am Kiah Amin MD [Primary Care Provider] - 1-2 days Mauricio Feliz DO [Doctor of Osteopathic Medicine] - 1 Week (Appointment made for SundayNovember 18 @ 2:30pm.) Ambulatory/Diagnostic Orders: Complete Blood Count w/diff [LAB.AMB] Time Frame: 2 Days, Location: None Selected Comprehensive Metabolic Panel [LAB.AMB] Time Frame: 2 Days, Location: None Selected Patient Instructions/Handouts: Chest Pain (ED) Activity/Diet/Wound Care/Special Instructions: Activity as tolerated Diet regular Discharge Disposition: HOME SELF-CARE
--- NOTE | 2018-11-06 14:08 | P.PN ---
Subjective Progress Note Date: 11/06/18 Principal diagnosis: 63-year-old white female admitted to the hospital on 11/04/2018, with complaints of chest pain, venous to the left side of her chest, and shortness of breath, s he denied any fever or chills, there have been no nausea, vomiting or diarrhea, no diaphoresis. She was evaluated by cardiology, she underwent a stress test which was normal stress echocardiogram with no evidence of stress-induced ischemia. Troponins have been negative, 2-D echo completed showed an EF of 55- 60%. Patient does have underlying history of COPD, still smoking, chest x-ray showed no evidence of acute pulmonary disease, her proBNP level was within normal limits at 153, he is to follow-up with Dr. Escamilla in the office, but she had not seen him in the long time. Her COPD may have been mildly active 1 patient came in, on today's exam there is no rhonchi, no wheezing, she is satt ing about 89-90% on room air, she has been ambulated, she has had no recurrence of chest pain, no cough, no significant phlegm production or chest congestion. From pulmonary perspective patient is stable for discharge home today, she will need outpatient follow-up with Dr. Escamilla in the office. Objective - Vital Signs Vital signs: Vital Signs Temp 98.3 F 11/06/18 11:55 Pulse 74 11/06/18 12:00 Resp 18 11/06/18 11:55 BP 129/71 11/06/18 11:55 Pulse Ox 93 L 11/06/18 11:55 Intake & Output 11/05/18 11/06/18 11/06/18 18:59 06:59 18:59 Intake Total 236 640 Balance 236 640 Weight 58.06 kg Intake: Oral 236 440 Other 200 Other: Voiding Method Toilet Toilet Toilet # Voids 4 1 - Exam GENERAL EXAM: Alert, pleasant, 63-year-old female, comfortable in no apparent distress. HEAD: Normocephalic/atraumatic. EYES: Normal reaction of pupils, equal size. Conjunctiva pink, sclera white. NOSE: Clear with pink turbinates. THROAT: No erythema or exudates. NECK: No masses, no JVD, no thyroid enlargement, no adenopathy. CHEST: No chest wall deformity. Symmetrical expansion. LUNGS: Equal air entry with decreased breath sounds, no rhonchi, no wheezing or rales CVS: Regular rate and rhythm, normal S1 and S2, no gallops, no murmurs, no rubs ABDOMEN: Soft, nontender. No hepatosplenomegaly, normal bowel sounds, no guarding or rigidity. EXTREMITIES: No clubbing, no edema, no cyanosis, 2+ pulses and upper and lower extremities. MUSCULOSKELETAL: Muscle strength and tone normal. SPINE: No scoliosis or deformity SKIN: No rashes CENTRAL NERVOUS SYSTEM: Alert and oriented -3. No focal deficits, tone is normal in all 4 extremities. PSYCHIATRIC: Alert and oriented -3. Appropriate affect. Intact judgment and insight. - Labs CBC & Chem 7: 11/06/18 05:49 11/06/18 05:49 Labs: Abnormal Lab Results - Last 24 Hours (Table) 11/05/18 11/05/18 11/06/18 Range/Units 16:16 23:26 05:49 WBC 15.6 H (3.8-10.6) k/uL RDW 15.7 H (11.5-15.5) % Neutrophils # 11.3 H (1.3-7.7) k/uL Chloride (98-107) mmol/L Glucose (74-99) mg/dL POC Glucose (mg/dL) 161 H 168 H (75-99) mg/dL Alkaline Phosphatase (38-126) U/L 11/06/18 11/06/18 Range/Units 05:49 11:39 WBC (3.8-10.6) k/uL RDW (11.5-15.5) % Neutrophils # (1.3-7.7) k/uL Chloride 108 H (98-107) mmol/L Glucose 113 H (74-99) mg/dL POC Glucose (mg/dL) 271 H (75-99) mg/dL Alkaline Phosphatase 160 H (38-126) U/L Microbiology - Last 24 Hours (Table) 11/05/18 11:56 Urine Culture - Preliminary Urine,Voided Assessment and Plan Plan: Assessment: #1. Shortness of breath, likely related to mild exacerbation of COPD #2. Chest pain, left-sided chest heaviness, troponins have been negative, patient was ruled out for acute coronary event, stress test show any stress- induced ischemia #3. Ongoing tobacco and nicotine addiction, #4. Diabetes mellitus type 2 #5. Hypertension #6. History of CVA #7. History of chronic back pain #8. Hyperlipidemia Plan: We will continue with current medical treatment, patient was counseled on smoking cessation, she continues to smoke, she will need to follow up with Dr. Escamilla in the office, no chest pain,shortness of breath, no signs are stable, she had a negative stress test, no rhonchi, no wheezing, no cough or chest congestion. Stable for discharge from pulmonary perspective I performed a history & physical examination of the patient and discussed their management with my nurse practitioner, Winifred Mcdonough. I reviewed the nurse practitioner's note and agree with the documented findings and plan of care. Lung sounds are positive for diminished breath sounds The findings and the impression was discussed with the patient. I attest to the documentation by the nurse practitioner. Time with Patient: Less than 30
== END 2018-11-06 13:50 | disposition home or self-care (01) ==
LOC: EC 12:24 → 1SOBS 15:57
PROVIDERS: ADMIT Internal Medicine; ATTEND Internal Medicine
DX: R07.89 Other chest pain (principal); E11.9 Type 2 diabetes mellitus without complications; E78.5 Hyperlipidemia, unspecified; F17.210 Nicotine dependence, cigarettes, uncomplicated; Z71.6 Tobacco abuse counseling; F41.9 Anxiety disorder, unspecified; I10 Essential (primary) hypertension; I25.10 Atherosclerotic heart disease of native coronary artery without angina pectoris; I45.81 Long QT syndrome; J44.9 Chronic obstructive pulmonary disease, unspecified; N39.0 Urinary tract infection, site not specified; R74.8 Abnormal levels of other serum enzymes; R09.02 Hypoxemia; Z79.4 Long term (current) use of insulin; Z79.51 Long term (current) use of inhaled steroids; Z79.82 Long term (current) use of aspirin; Z79.899 Other long term (current) drug therapy; Z82.49 Family history of ischemic heart disease and other diseases of the circulatory system; Z83.3 Family history of diabetes mellitus; Z86.73 Personal history of transient ischemic attack (TIA), and cerebral infarction without residual deficits; Z90.49 Acquired absence of other specified parts of digestive tract
CPT/HCPCS: 96365; 96372 ×2; 96361; 96375; 99285; 36415; 94640 ×4; 94760; 93005; 93306; 93351; 85379; 83880 ×2; 80061; 80053 ×3; 82150; 83690; 83735; 84484 ×2; 85025 ×3; 85610; 85730; 81001; 87086; 71046; 76705; G0378 ×3; J1250; J2270; J3105; J1650 ×2; J0461; J0696 ×2

== ENCOUNTER → 2019-05-09 | Outpatient (CLI) | payer MEDICARE ==
--- NOTE | 2019-05-12 13:26 | MM ---
Reason for exam: screening (asymptomatic). Last mammogram was performed 3 years and 3 months ago. History: Patient is postmenopausal. Benign ultrasound-guided core biopsy of the left breast, August 05, 2002. Core biopsy of the left breast. Physical Findings: A clinical breast exam by your physician is recommended on an annual basis and results should be correlated with mammographic findings. MG 3D Screening Mammo W/Cad Bilateral CC and MLO view(s) were taken. Prior study comparison: January 31, 2016, left breast MG work up mamm w CAD LT. January 18, 2016, bilateral MG screening mammo w CAD. The breast tissue is heterogeneously dense. This may lower the sensitivity of mammography. Stable grouped microcalcfications medial left CC view. No significant changes when compared with prior studies. ASSESSMENT: Benign, BI-RAD 2 RECOMMENDATION: Routine screening mammogram of both breasts in 1 year.
== END | disposition home or self-care (01) ==
LOC: RADMAMWWP 13:14
PROVIDERS: ATTEND Family Medicine
DX: Z12.31 Encounter for screening mammogram for malignant neoplasm of breast (principal)
CPT/HCPCS: 77063; 77067

== ENCOUNTER 2020-01-31 17:17 | Inpatient (IN) | payer MEDICARE ==
[2020-01-31] MEDS ORDERED: SODIUM CHLORIDE 0.9% 1,000 ML IV STA (17:24)
--- NOTE | 2020-01-31 17:25 | ED ---
Neuro HPI - General Chief Complaint: Weakness Stated Complaint: Poss Stroke,Weakness Time Seen by Provider: 01/31/20 17:22 Source: patient, EMS, RN notes reviewed, old records reviewed Mode of arrival: EMS - History of Present Illness Is the patient presenting with stroke symptoms?: Yes -: hour(s) Initial Comments: This is a 64-year-old female DF for evaluation patient is a poor story secondary to current clinical condition. Patient presents by EMS for evaluation of possible CVA elevated blood pressure right-sided weakness. Emesis called the patient's house by patient's son who found patient on the ground when trying to the bathroom. No significant downtime no significant injuries noted. Patient does states she does have history of CVA Location: speech, right arm History of same: No Place: home Severity: mild Quality: weak Improves With: none Worsens With: none On Anticoagulants: Yes (Patient had a fall) Context: found down Associated Symptoms: denies other symptoms - Related Data Home Medications: Home Medications Medication Instructions Recorded Confirmed Loratadine [Claritin] 10 mg PO DAILY 01/01/16 11/04/18 Meclizine HCl 25 mg PO Q6H PRN 01/01/16 11/04/18 Montelukast [Singulair] 10 mg PO HS 01/01/16 11/04/18 Cholecalciferol [Vitamin D3 (25 5,000 unit PO DAILY 01/02/16 11/04/18 Mcg = 1000 Iu)] Fluticasone Nasal [place] [Flonase 2 spray EA NOSTRIL DAILY 01/02/16 11/04/18 Nasal [place]] amLODIPine [Norvasc] 10 mg PO DAILY 01/02/16 11/04/18 Albuterol Sulfate [Proair Hfa] 2 puff INHALATION RT-Q4H PRN 10/29/17 11/04/18 Aspirin EC [Ecotrin Low Dose] 81 mg PO DAILY 10/29/17 11/04/18 DULoxetine HCL [Cymbalta] 60 mg PO DAILY 10/29/17 11/04/18 hydrOXYzine PAMOATE [Vistaril] 50 mg PO TID PRN 10/29/17 11/04/18 Hydrocodone/Acetaminophen [[place] 1 tab PO Q8H PRN 01/13/18 11/04/18 10-325] Insulin Aspart [NovoLOG Flexpen] See Protocol SQ AC-TID 01/13/18 11/04/18 Insulin Glargine [Lantus] 10 unit SQ HS 01/13/18 11/04/18 Fluticasone Propionate [Flovent 1 puff INHALATION RT-BID 11/04/18 11/04/18 Diskus] Previous Rx's Medication Instructions Recorded Cefuroxime Axetil [Ceftin] 500 mg PO BID 7 Days #14 tab 11/06/18 Allergies/Adverse Reactions: Allergies Allergy/AdvReac Type Severity Reaction Status Date / Time baclofen Allergy Unknown Verified 11/04/18 13:45 gabapentin Allergy Anaphylaxis Verified 11/04/18 13:45 naproxen Allergy Swelling Verified 11/04/18 13:45 Review of Systems ROS Statement: Those systems with pertinent positive or pertinent negative responses have been documented in the HPI. ROS Other: All systems not noted in ROS Statement are negative. General Exam Limitations: altered mental status General appearance: alert, appears intoxicated, lethargic Head exam: Present: atraumatic, normocephalic, normal inspection Eye exam: Present: normal appearance, PERRL, EOMI. Absent: scleral icterus, conjunctival injection, periorbital swelling ENT exam: Present: normal exam, mucous membranes moist Neck exam: Present: normal inspection. Absent: tenderness, meningismus, lymphadenopathy Respiratory exam: Present: normal lung sounds bilaterally. Absent: respiratory distress, wheezes, rales, rhonchi, stridor Cardiovascular Exam: Present: regular rate, normal rhythm, normal heart sounds. Absent: systolic murmur, diastolic murmur, rubs, gallop, clicks GI/Abdominal exam: Present: soft, normal bowel sounds. Absent: distended, tenderness, guarding, rebound, rigid Extremities exam: Present: normal inspection, full ROM, normal capillary refill. Absent: tenderness, pedal edema, joint swelling, calf tenderness Back exam: Present: normal inspection Neurological exam: Present: alert, oriented X3, CN II-XII intact Psychiatric exam: Present: normal affect, normal mood Skin exam: Present: warm, dry, intact, normal color. Absent: rash Stroke MDM - Lab Data Result diagrams: 01/31/20 17:27 01/31/20 17:27 Lab Results 06/06/20 06/06/20 06/06/20 Range/Units 17:27 17:27 17:27 WBC 11.5 H (3.8-10.6) k/uL RBC 5.31 (3.80-5.40) m/uL Hgb 15.1 (11.4-16.0) gm/dL Hct 46.4 H (34.0-46.0) % MCV 87.4 (80.0-100.0) fL MCH 28.4 (25.0-35.0) pg MCHC 32.5 (31.0-37.0) g/dL RDW 14.1 (11.5-15.5) % Plt Count 387 (150-450) k/uL Neutrophils % 70 % Lymphocytes % 18 % Monocytes % 7 % Eosinophils % 3 % Basophils % 1 % Neutrophils # 8.1 H (1.3-7.7) k/uL Lymphocytes # 2.1 (1.0-4.8) k/uL Monocytes # 0.8 (0-1.0) k/uL Eosinophils # 0.4 (0-0.7) k/uL Basophils # 0.1 (0-0.2) k/uL PT 9.5 (9.0-12.0) sec INR 0.9 (<1.2) APTT 25.2 (22.0-30.0) sec Sodium 136 L (137-145) mmol/L Potassium 4.0 (3.5-5.1) mmol/L Chloride 105 (98-107) mmol/L Carbon Dioxide 22 (22-30) mmol/L Anion Gap 9 mmol/L BUN 14 (7-17) mg/dL Creatinine 0.87 (0.52-1.04) mg/dL Est GFR (CKD-EPI)AfAm 83 (>60 ml/min/1.73 sqM) Est GFR (CKD-EPI)NonAf 72 (>60 ml/min/1.73 sqM) Glucose 114 H (74-99) mg/dL POC Glucose (mg/dL) (75-99) mg/dL POC Glu [employer] ID Calcium 9.3 (8.4-10.2) mg/dL Total Bilirubin 0.5 (0.2-1.3) mg/dL AST 18 (14-36) U/L ALT 12 (4-34) U/L Alkaline Phosphatase 133 H (38-126) U/L Ammonia (<30) umol/L Troponin I (0.000-0.034) ng/mL Total Protein 7.5 (6.3-8.2) g/dL Albumin 4.1 (3.5-5.0) g/dL Urine Opiates Screen (NotDetected) Ur Oxycodone Screen (NotDetected) Urine Methadone Screen (NotDetected) Ur Propoxyphene Screen (NotDetected) Ur Barbiturates Screen (NotDetected) U Tricyclic Antidepress (NotDetected) Ur Phencyclidine Scrn (NotDetected) Ur Amphetamines Screen (NotDetected) U Methamphetamines Scrn (NotDetected) U Benzodiazepines Scrn (NotDetected) Urine Cocaine Screen (NotDetected) U Marijuana (THC) Screen (NotDetected) Serum Alcohol <10 mg/dL 01/31/20 01/31/20 01/31/20 Range/Units 17:27 17:27 17:31 WBC (3.8-10.6) k/uL RBC (3.80-5.40) m/uL Hgb (11.4-16.0) gm/dL Hct (34.0-46.0) % MCV (80.0-100.0) fL MCH (25.0-35.0) pg MCHC (31.0-37.0) g/dL RDW (11.5-15.5) % Plt Count (150-450) k/uL Neutrophils % % Lymphocytes % % Monocytes % % Eosinophils % % Basophils % % Neutrophils # (1.3-7.7) k/uL Lymphocytes # (1.0-4.8) k/uL Monocytes # (0-1.0) k/uL Eosinophils # (0-0.7) k/uL Basophils # (0-0.2) k/uL PT (9.0-12.0) sec INR (<1.2) APTT (22.0-30.0) sec Sodium (137-145) mmol/L Potassium (3.5-5.1) mmol/L Chloride (98-107) mmol/L Carbon Dioxide (22-30) mmol/L Anion Gap mmol/L BUN (7-17) mg/dL Creatinine (0.52-1.04) mg/dL Est GFR (CKD-EPI)AfAm (>60 ml/min/1.73 sqM) Est GFR (CKD-EPI)NonAf (>60 ml/min/1.73 sqM) Glucose (74-99) mg/dL POC Glucose (mg/dL) 120 H (75-99) mg/dL POC Glu [employer] ID Maxx Peters Calcium (8.4-10.2) mg/dL Total Bilirubin (0.2-1.3) mg/dL AST (14-36) U/L ALT (4-34) U/L Alkaline Phosphatase (38-126) U/L Ammonia <9 (<30) umol/L Troponin I <0.012 (0.000-0.034) ng/mL Total Protein (6.3-8.2) g/dL Albumin (3.5-5.0) g/dL Urine Opiates Screen (NotDetected) Ur Oxycodone Screen (NotDetected) Urine Methadone Screen (NotDetected) Ur Propoxyphene Screen (NotDetected) Ur Barbiturates Screen (NotDetected) U Tricyclic Antidepress (NotDetected) Ur Phencyclidine Scrn (NotDetected) Ur Amphetamines Screen (NotDetected) U Methamphetamines Scrn (NotDetected) U Benzodiazepines Scrn (NotDetected) Urine Cocaine Screen (NotDetected) U Marijuana (THC) Screen (NotDetected) Serum Alcohol mg/dL 01/31/20 Range/Units 20:11 WBC (3.8-10.6) k/uL RBC (3.80-5.40) m/uL Hgb (11.4-16.0) gm/dL Hct (34.0-46.0) % MCV (80.0-100.0) fL MCH (25.0-35.0) pg MCHC (31.0-37.0) g/dL RDW (11.5-15.5) % Plt Count (150-450) k/uL Neutrophils % % Lymphocytes % % Monocytes % % Eosinophils % % Basophils % % Neutrophils # (1.3-7.7) k/uL Lymphocytes # (1.0-4.8) k/uL Monocytes # (0-1.0) k/uL Eosinophils # (0-0.7) k/uL Basophils # (0-0.2) k/uL PT (9.0-12.0) sec INR (<1.2) APTT (22.0-30.0) sec Sodium (137-145) mmol/L Potassium (3.5-5.1) mmol/L Chloride (98-107) mmol/L Carbon Dioxide (22-30) mmol/L Anion Gap mmol/L BUN (7-17) mg/dL Creatinine (0.52-1.04) mg/dL Est GFR (CKD-EPI)AfAm (>60 ml/min/1.73 sqM) Est GFR (CKD-EPI)NonAf (>60 ml/min/1.73 sqM) Glucose (74-99) mg/dL POC Glucose (mg/dL) (75-99) mg/dL POC Glu [employer] Guide ID Calcium (8.4-10.2) mg/dL Total Bilirubin (0.2-1.3) mg/dL AST (14-36) U/L ALT (4-34) U/L Alkaline Phosphatase (38-126) U/L Ammonia (<30) umol/L Troponin I (0.000-0.034) ng/mL Total Protein (6.3-8.2) g/dL Albumin (3.5-5.0) g/dL Urine Opiates Screen Not Detected (NotDetected) Ur Oxycodone Screen Not Detected (NotDetected) Urine Methadone Screen Not Detected (NotDetected) Ur Propoxyphene Screen Not Detected (NotDetected) Ur Barbiturates Screen Not Detected (NotDetected) U Tricyclic Antidepress Detected H (NotDetected) Ur Phencyclidine Scrn Not Detected (NotDetected) Ur Amphetamines Screen Not Detected (NotDetected) U Methamphetamines Scrn Not Detected (NotDetected) U Benzodiazepines Scrn Not Detected (NotDetected) Urine Cocaine Screen Not Detected (NotDetected) U Marijuana (THC) Screen Not Detected (NotDetected) Serum Alcohol mg/dL - NIH Stroke Scale 1a. Level of Consciousness: (0) alert 1b. LOC Questions: (0) answers correctly 1c. LOC Commands: (0) performs tasks correctly 2. Best Gaze: (0) normal 3. Visual: (0) no visual loss 4. Facial Palsy: (1) minor paralysis 5a. Motor Arm Left: (0) no drift 5b. Motor Arm Right: (1) drift 6a. Motor Leg Left: (0) no drift 6b. Motor Leg Right: (0) no drift 7. Limb Ataxia: (0) absent 8. Sensory: (0) normal 9. Best Language: (1) mild/moderate aphasia 10. Dysarthria: (1) mild/moderate dysarthria 11. Extinction/Inattention: (0) no abnormality - Thrombolytic Inclusion/Exclusion Thrombolytic Inclusion Criteria: Symptom Onset < 4.5 h Thrombolytic Contraindications: Rapidly Improving s/s - EKG Data -: EKG Interpreted by Me (EKG shows sinus rhythm rate of 82, NV 156/72 QTC 479) Past Medical History Past Medical History: CVA/TIA, Diabetes Mellitus, Eye Disorder, Hyperlipidemia, Hypertension Additional Past Medical History / Comment(s): COPD, chronic back pain, Vertigo History of Any Multi-Drug Resistant Organisms: None Reported Past Surgical History: Cholecystectomy, Heart Catheterization Additional Past Surgical History / Comment(s): epidural injections, rhizotomy involving the lumbar spine for chronic back pain, cardiac catheterization, cholecystectomy Past Anesthesia/Blood Transfusion Reactions: Motion Sickness Past Psychological History: Anxiety Smoking Status: Current every day smoker Past Alcohol Use History: None Reported Past Drug Use History: None Reported - Past Family History Father Family Medical History: Hypertension, Myocardial Infarction ([place]) Additional Family Medical History / Comment(s): AT AGE 63 Mother Family Medical History: Diabetes Mellitus, Dialysis Additional Family Medical History / Comment(s): MOM UNK AGE-COMPLICATIONS FROM DIABETES Sister(s) Family Medical History: Diabetes Mellitus Course Vital Signs 01/31/20 01/31/20 01/31/20 17:22 17:30 17:45 Temperature 97.7 F Pulse Rate 84 82 Respiratory 16 16 15 Rate Blood Pressure 142/82 142/82 124/76 O2 Sat by Pulse 95 92 L Oximetry 01/31/20 01/31/20 01/31/20 18:00 18:15 18:30 Temperature Pulse Rate 80 80 82 Respiratory 14 19 17 Rate Blood Pressure 129/73 130/72 134/76 O2 Sat by Pulse 95 95 95 Oximetry 01/31/20 01/31/20 01/31/20 18:45 19:00 19:09 Temperature Pulse Rate 79 83 Respiratory 11 L 18 12 Rate Blood Pressure 121/74 139/90 O2 Sat by Pulse 98 92 L Oximetry 01/31/20 01/31/20 01/31/20 19:15 19:24 19:30 Temperature Pulse Rate 90 85 Respiratory 17 16 16 Rate Blood Pressure 124/66 130/79 138/81 O2 Sat by Pulse 95 96 92 L Oximetry - Reevaluation(s) Reevaluation #1: 01/31/20 20:28 Medical records reviewed Reevaluation #2: 01/31/20 20:28 Patient is moving all extremities appropriately rolling around in bed is responsive Reevaluation #3: 01/31/20 20:28 Suspicion is that patient is overmedicated on home medications - Consultations Consultation #1: Spoke with Dr. Hernández who agrees to admit patient Disposition Clinical Impression: Dizziness, Dehydration, Fall, Altered mental state Disposition: ADMITTED IP TO THIS [facility] Condition: Fair Is patient prescribed a controlled substance at d/c from ED?: No Referrals: Kiah Amin MD [Primary Care Provider] - 1-2 days
[2020-01-31] MEDS ORDERED: NALOXONE 0.4 MG/ML 10 ML VIAL IVP STA (17:28)
[2020-01-31 17:36] LABS: Glucose,Whole Blood 120 mg/dL (75-99)
[2020-01-31 17:59] LABS: Basophils # (A) 0.1 k/uL (0-0.2); Basophils % (A) 1 %; Eosinophils # (A) 0.4 k/uL (0-0.7); Eosinophils % (A) 3 %; HCT 46.4 % (34.0-46.0); HGB 15.1 gm/dL (11.4-16.0); Lymphocytes # (A) 2.1 k/uL (1.0-4.8); Lymphocytes % (A) 18 %; MCH 28.4 pg (25.0-35.0); MCHC 32.5 g/dL (31.0-37.0); MCV 87.4 fL (80.0-100.0); Mean Platelet Volume 7.3; Monocytes # (A) 0.8 k/uL (0-1.0); Monocytes % (A) 7 %; Neutrophils # (A) 8.1 k/uL (1.3-7.7); Neutrophils % (A) 70 %; Platelet Count 387 k/uL (150-450); RBC 5.31 m/uL (3.80-5.40); RDW 14.1 % (11.5-15.5); WBC 11.5 k/uL (3.8-10.6)
--- NOTE | 2020-01-31 18:14 | CT ---
EXAMINATION TYPE: CT brain wo con for TPA DATE OF EXAM: 01/31/2020 COMPARISON: 10/29/2017 HISTORY: Weakness. CT DLP: 1067.8 mGycm Automated exposure control for dose reduction was used. Images were obtained of the brain without contrast. Ventricles have normal size. There is no mass effect nor midline shift. There is no sign of intracran ial hemorrhage. The calvarium is intact. There is no evidence of cerebral edema. There is hypodensity in the medial left occipital lobe consistent with old cortical infarct. IMPRESSION: No acute intracranial abnormality. Old left occipital lobe infarct unchanged compared to old exam.
--- NOTE | 2020-01-31 18:19 | CT ---
EXAMINATION TYPE: CT angio head neck DATE OF EXAM: 01/31/2020 COMPARISON: 4:15 HISTORY: Weakness. CT DLP: 347.8 mGycm Automated exposure control for dose reduction was used. CONTRAST: Performed with IV Contrast, patient injected with 65 mL of Isovue 370. There are 3-D post processed images. Images were obtained from the aortic arch to the vertex of the b rain. There is normal branching pattern of the great vessels on the aortic arch. There is atrophy heart rishi que at the origins of the great vessels. There is bilateral arterial flow in the subclavian arteries. There is arterial flow in the common internal and external carotid arteries bilaterally. There is ar terial flow in both vertebral arteries. Right vertebral artery is larger than the left. Basilar arter y fills essentially from the right side only. There is wide patency of the carotid artery bifurcation s. There is no evidence of carotid or vertebral artery aneurysm or dissection. There is arterial flow in the anterior middle and posterior cerebral arteries. There is no mass effec t. There is no evidence of intracranial aneurysm or neovascularity. I see no evidence of hemodynamic stenosis. There is normal contrast opacification of the venous sinuses. IMPRESSION: Negative CT angiogram of the brain. Negative CT angiogram of the neck. No adverse change compared to old exam.
[2020-01-31 18:23] LABS: INR 0.9 (<1.2); Partial Thromboplastin Time 25.2 sec (22.0-30.0); Prothrombin Time 9.5 sec (9.0-12.0)
[2020-01-31 18:24] LABS: ALT 12 U/L (4-34); AST 18 U/L (14-36); African American GFR (CKD) 83 (>60 ml/min/1.73 sqM); Albumin 4.1 g/dL (3.5-5.0); Alcohol <10 mg/dL; Alkaline Phosphatase 133 U/L (38-126); Anion Gap 9 mmol/L; Blood Urea Nitrogen 14 mg/dL (7-17); Calcium 9.3 mg/dL (8.4-10.2); Carbon Dioxide 22 mmol/L (22-30); Chloride 105 mmol/L (98-107); Glucose 114 mg/dL (74-99); Non-African American GFR(CKD) 72 (>60 ml/min/1.73 sqM); Sodium 136 mmol/L (137-145); Total Bilirubin 0.5 mg/dL (0.2-1.3); Total Protein 7.5 g/dL (6.3-8.2)
--- NOTE | 2020-01-31 19:19 | XR ---
EXAMINATION TYPE: XR chest 2V DATE OF EXAM: 01/31/2020 COMPARISON: 11/04/2018 HISTORY: Chest pain TECHNIQUE: 2 views FINDINGS: Heart and mediastinum are normal. Lungs are clear of infiltrate. There is no heart failure. There are chest leads. There is relative poor inspiration. IMPRESSION: No active cardiopulmonary disease. Inspiration decreased probably due to positioning. Nor mal heart.
[2020-01-31 20:18] LABS: Appearance,Urine Clear (Clear); Bilirubin,Urine Negative (Negative); Blood,Urine Negative (Negative); Color,Urine Light Yellow; Glucose,Urine (UA) Trace (Negative); Ketones,Urine Negative (Negative); Leukocyte Esterase,Urine Negative (Negative); Nitrite,Urine Negative (Negative); Protein,Urine Trace (Negative); Urobilinogen,Urine <2.0 mg/dL (<2.0)
[2020-01-31 20:28] LABS: Amphetamine Screen,Urine Not Detected (NotDetected); Barbiturate Screen,Urine Not Detected (NotDetected); Benzodiazepines Screen,Urine Not Detected (NotDetected); Cocaine Screen,Urine Not Detected (NotDetected); Methadone Screen, Urine Not Detected (NotDetected); Opiate Screen,Urine Not Detected (NotDetected); Oxycodone Screen, Urine Not Detected (NotDetected); Phencyclidine Screen,Urine Not Detected (NotDetected); Tricyclic Antidepressant,Urine Detected (NotDetected); Urn Cannabinoid Scrn Not Detected (NotDetected)
[2020-01-31] MEDS ORDERED: SODIUM CHLORIDE 0.9% 1,000 ML IV ONE (20:28)
[2020-01-31 20:31] LABS: Specific Gravity,Urine >1.050 (1.001-1.035)
[2020-01-31 21:43] LABS: Glucose,Whole Blood 113 mg/dL (75-99)
[2020-02-01 06:33] LABS: Glucose,Whole Blood 118 mg/dL (75-99)
[2020-02-01] MEDS: INSULIN ASPART (NovoLOG) 100 UNIT/ML VIAL SQ SCH ×4 (06:48→21:02)
[2020-02-01 11:35] LABS: Glucose,Whole Blood 146 mg/dL (75-99)
[2020-02-01] MEDS ORDERED: ASPIRIN 325 MG TAB PO SCH (13:15)
--- NOTE | 2020-02-01 13:20 | P.HPIM ---
History of Present Illness H&P Date: 02/01/20 Chief Complaint: Generalized weakness Kiara Aparicio, is a 64-year-old female who presented to [facility] emergency room due to weakness, possibly more right sided weakness, and some difficulty with her speech. Patient states that on Sunday morning she woke up at 6:30 in the morning to let the dogs out, at that time she was feeling fine , she went back to sleep and woke up again at 8:30, at this time she was feeling very weak and and able to get out of bed, she decided to go back to sleep, she spends most of her day in bed, she stated that she was having difficulty getting up and walking and difficulty speaking, she was eventually able to talk to her son who called EMS and patient was brought in to [facility] emergency room. Patient was evaluated in the emergency room, she was afebrile blood pressure was 142/82 pulse ox 96% on room air, her physical exam was positive for right arm drift and mild aphasia, computed tomography scan of the brain did not reveal any acute intracranial abnormality there was evidence of an old left occipital lobe infarct unchanged compared to prior exam, CT angiogram of the brain was done and was negative, CT angiogram of the neck was done and was negative, chest x-ray did not reveal any acute abnormality, EKG revealed T-wave abnormality in the anterior and lateral leads. Patient was admitted to telemetry floor for further evaluation and treatment . Patient was seen and examined on the telemetry floor, she is alert and oriented 3 in no apparent distress, at this time speech is fluent patient is answering questions appropriately without any aphasia, there is no fever or chills no headache or dizziness no chest pain no shortness of breath no cough no nausea or vomiting no abdominal pain no diarrhea no burning was urination no frequency or urgency and no hematuria, there is minimal weakness in the right upper extremity as compared to the left, otherwise no acute focal neurological deficit. Patient was started on oral aspirin, she was also started on subcu Lovenox for DVT prophylaxis and oral Protonix for GI prophylaxis, we are still awaiting her home medication to be reviewed as patient has brought in 2 different lists of medications and the nurse is currently actively trying to reconcile her medications. Past Medical History Past Medical History: COPD, CVA/TIA, Diabetes Mellitus, Eye Disorder, Hyperlipidemia, Hypertension Additional Past Medical History / Comment(s): COPD, chronic back pain, Vertigo History of Any Multi-Drug Resistant Organisms: None Reported Past Surgical History: Cholecystectomy, Heart Catheterization Additional Past Surgical History / Comment(s): epidural injections, rhizotomy involving the lumbar spine for chronic back pain, cardiac catheterization, cholecystectomy Past Anesthesia/Blood Transfusion Reactions: Motion Sickness Past Psychological History: Anxiety Smoking Status: Current every day smoker Past Alcohol Use History: None Reported Additional Past Alcohol Use History / Comment(s): STARTED SMOKING AT AGE 28 IPPD HAS RECENTLY CUT DOWN TO 3 CIG/DAY Past Drug Use History: None Reported - Past Family History Father Family Medical History: Hypertension, Myocardial Infarction ([place]) Additional Family Medical History / Comment(s): AT AGE 63 Mother Family Medical History: Diabetes Mellitus, Dialysis Additional Family Medical History / Comment(s): MOM UNK AGE-COMPLICATIONS FROM DIABETES Sister(s) Family Medical History: Diabetes Mellitus Medications and Allergies Home Medications Medication Instructions Recorded Confirmed Type Loratadine [Claritin] 10 mg PO DAILY 01/01/16 11/04/18 History Meclizine HCl 25 mg PO Q6H PRN 01/01/16 11/04/18 History Montelukast [Singulair] 10 mg PO HS 01/01/16 11/04/18 History Cholecalciferol [Vitamin D3 (25 5,000 unit PO DAILY 01/02/16 11/04/18 History Mcg = 1000 Iu)] Fluticasone Nasal [place] [Flonase 2 spray EA NOSTRIL DAILY 01/02/16 11/04/18 History Nasal [place]] amLODIPine [Norvasc] 10 mg PO DAILY 01/02/16 11/04/18 History Albuterol Sulfate [Proair Hfa] 2 puff INHALATION RT-Q4H PRN 10/29/17 11/04/18 History Aspirin EC [Ecotrin Low Dose] 81 mg PO DAILY 10/29/17 11/04/18 History DULoxetine HCL [Cymbalta] 60 mg PO DAILY 10/29/17 11/04/18 History hydrOXYzine PAMOATE [Vistaril] 50 mg PO TID PRN 10/29/17 11/04/18 History Hydrocodone/Acetaminophen [[place] 1 tab PO Q8H PRN 01/13/18 11/04/18 History 10-325] Insulin Aspart [NovoLOG Flexpen] See Protocol SQ AC-TID 01/13/18 11/04/18 History Insulin Glargine [Lantus] 10 unit SQ HS 01/13/18 11/04/18 History Fluticasone Propionate [Flovent 1 puff INHALATION RT-BID 11/04/18 11/04/18 History Diskus] Cefuroxime Axetil [Ceftin] 500 mg PO BID 7 Days #14 tab 11/06/18 Rx Allergies Allergy/AdvReac Type Severity Reaction Status Date / Time baclofen Allergy Unknown Verified 11/04/18 13:45 gabapentin Allergy Anaphylaxis Verified 11/04/18 13:45 naproxen Allergy Swelling Verified 11/04/18 13:45 Physical Exam Vitals: Vital Signs Temp Pulse Pulse Resp BP BP Pulse Ox 02/01/20 11:42 98.4 F 83 16 126/70 94 L 02/01/20 07:53 98.7 F 83 16 148/71 95 02/01/20 04:00 98.0 F 81 16 126/63 95 02/01/20 00:00 97.7 F 81 15 108/60 94 L 01/31/20 21:52 97.7 F 84 16 108/60 89 L 01/31/20 21:00 80 18 146/85 95 01/31/20 20:30 81 19 158/109 95 01/31/20 20:00 87 22 136/79 95 01/31/20 19:30 16 138/81 92 L 01/31/20 19:24 85 16 130/79 96 01/31/20 19:15 90 17 124/66 95 01/31/20 19:09 12 01/31/20 19:00 83 18 139/90 92 L 01/31/20 18:45 79 11 L 121/74 98 01/31/20 18:30 82 17 134/76 95 01/31/20 18:15 80 19 130/72 95 01/31/20 18:00 80 14 129/73 95 01/31/20 17:45 82 15 124/76 01/31/20 17:30 16 142/82 92 L 01/31/20 17:22 97.7 F 84 16 142/82 95 Intake and Output 06/06/20 06/07/20 06/07/20 22:59 06:59 14:59 Intake Total 540 240 Balance 540 240 Intake: Oral 540 240 Other: Voiding Method Toilet Toilet # Voids 1 Weight 60.328 kg 60.8 kg In general patient is alert and oriented 3 in no apparent distress HEENT head normocephalic and atraumatic Neck is supple no JVD no goiter no lymphadenopathy Chest exam reveals a few scattered crackles no wheezing Cardiac exam reveals regular heart sounds S1 and S2 no gallops no murmurs Abdomen is soft nontender no organomegaly with normal bowel sounds Extremity exam reveals no edema no cyanosis or clubbing Neurological exam reveals : Mental status patient is alert and oriented 3 speech is fluent at this time, cranial nerves II-12 are intact There is minimal right sided weakness involving the right upper extremity as compared to the left, otherwise no focal neurological deficit Gait was not tested for safety reasons. Results CBC & Chem 7: 01/31/20 17:27 01/31/20 17:27 Labs: Abnormal Lab Results - Last 24 Hours (Table) 01/31/20 01/31/20 01/31/20 Range/Units 17:27 17:27 17:31 WBC 11.5 H (3.8-10.6) k/uL Hct 46.4 H (34.0-46.0) % Neutrophils # 8.1 H (1.3-7.7) k/uL Sodium 136 L (137-145) mmol/L Glucose 114 H (74-99) mg/dL POC Glucose (mg/dL) 120 H (75-99) mg/dL Alkaline Phosphatase 133 H (38-126) U/L Ur Specific [place] (1.001-1.035) Urine Protein (Negative) Urine Glucose (UA) (Negative) U Tricyclic Antidepress (NotDetected) 01/31/20 01/31/20 02/01/20 Range/Units 20:11 21:42 06:31 WBC (3.8-10.6) k/uL Hct (34.0-46.0) % Neutrophils # (1.3-7.7) k/uL Sodium (137-145) mmol/L Glucose (74-99) mg/dL POC Glucose (mg/dL) 113 H 118 H (75-99) mg/dL Alkaline Phosphatase (38-126) U/L Ur Specific [place] >1.050 H (1.001-1.035) Urine Protein Trace H (Negative) Urine Glucose (UA) Trace H (Negative) U Tricyclic Antidepress Detected H (NotDetected) 02/01/20 Range/Units 11:27 WBC (3.8-10.6) k/uL Hct (34.0-46.0) % Neutrophils # (1.3-7.7) k/uL Sodium (137-145) mmol/L Glucose (74-99) mg/dL POC Glucose (mg/dL) 146 H (75-99) mg/dL Alkaline Phosphatase (38-126) U/L Ur Specific [place] (1.001-1.035) Urine Protein (Negative) Urine Glucose (UA) (Negative) U Tricyclic Antidepress (NotDetected) Thrombosis Risk Factor Assmnt - Choose All That Apply Each Factor Represents 1 point: Abnormal pulmonary function (COPD) Other Risk Factors: Yes Each Risk Factor Represents 2 Points: Age 61-74 years Other congenital or acquired thrombophilia - If yes, enter type in comment: No Thrombosis Risk Factor Assessment Total Risk Factor Score: 3 Thrombosis Risk Factor Assessment Level: Moderate Risk Assessment and Plan Plan: 1. Episode of aphasia and right sided weakness, so far all testing including computed tomography scan of the brain and CT angiogram of the brain and neck are negative, will obtain MRI of the brain with contrast Will consult neurology. Start patient on aspirin. 2. Underlying history of hypertension 3. Underlying history of insulin-dependent diabetes mellitus 4. Underlying history of asthma 5. Underlying history of depression 6. Abnormal EKG showing T-wave abnormality in the anterior and lateral leads At this time we are awaiting further clarification on home medications MRI of the brain was ordered Cardiology and neurology consultation requested Will follow closely
[2020-02-01] MEDS: ENOXAPARIN 40 MG/0.4 ML SYRINGE SQ SCH (16:05)
[2020-02-01] MEDS ORDERED: CYCLOBENZAPRINE 10 MG TAB PO PRN (16:38)
[2020-02-01] MEDS ORDERED: MECLIZINE 25 MG TAB PO PRN (16:43)
[2020-02-01] MEDS ORDERED: hydrOXYzine PAMOATE 25 MG CAP PO PRN (16:43)
[2020-02-01 16:45] LABS: Glucose,Whole Blood 146 mg/dL (75-99)
[2020-02-01 20:56] LABS: Glucose,Whole Blood 156 mg/dL (75-99)
[2020-02-01] MEDS: hydrOXYzine PAMOATE 25 MG CAP PO SCH (21:02)
[2020-02-01] MEDS: INSULIN DETEMIR (LEVEMIR) 100 UNIT/ML SYR SQ SCH (21:02)
[2020-02-01] MEDS: MONTELUKAST 10 MG TAB PO SCH (21:02)
[2020-02-02 06:22] LABS: Glucose,Whole Blood 155 mg/dL (75-99)
[2020-02-02] MEDS: PANTOPRAZOLE 40 MG TABLET PO SCH (06:41)
[2020-02-02] MEDS: INSULIN ASPART (NovoLOG) 100 UNIT/ML VIAL SQ SCH ×4 (06:41→20:50)
[2020-02-02 07:35] LABS: Basophils # (A) 0.1 k/uL (0-0.2); Basophils % (A) 1 %; Eosinophils # (A) 0.4 k/uL (0-0.7); Eosinophils % (A) 5 %; HCT 45.2 % (34.0-46.0); HGB 14.1 gm/dL (11.4-16.0); Lymphocytes # (A) 2.6 k/uL (1.0-4.8); Lymphocytes % (A) 28 %; MCH 27.9 pg (25.0-35.0); MCHC 31.2 g/dL (31.0-37.0); MCV 89.4 fL (80.0-100.0); Mean Platelet Volume 7.4; Monocytes # (A) 0.6 k/uL (0-1.0); Monocytes % (A) 7 %; Neutrophils # (A) 5.6 k/uL (1.3-7.7); Neutrophils % (A) 59 %; Platelet Count 362 k/uL (150-450); RBC 5.06 m/uL (3.80-5.40); RDW 14.3 % (11.5-15.5); WBC 9.5 k/uL (3.8-10.6)
[2020-02-02 07:45] LABS: Albumin 3.6 g/dL (3.5-5.0); Calcium 9.1 mg/dL (8.4-10.2); Total Bilirubin 0.2 mg/dL (0.2-1.3); Total Protein 6.7 g/dL (6.3-8.2)
[2020-02-02] MEDS: amLODIPine 10 MG TAB PO SCH (09:20)
[2020-02-02] MEDS: EZETIMIBE 10 MG TAB PO SCH (09:20)
[2020-02-02] MEDS: ASPIRIN 81 MG PO SCH (09:20)
[2020-02-02] MEDS: DULoxetine HCL 60 MG CAPSULE.DR PO SCH (09:21)
[2020-02-02] MEDS: hydrOXYzine PAMOATE 25 MG CAP PO SCH ×3 (09:21→20:49)
[2020-02-02] MEDS: FLUTICASONE 50MCG/SPRAY NASAL 16GM EA NOSTRIL SCH (09:22)
[2020-02-02] MEDS: CLOPIDOGREL 75 MG TAB PO SCH (09:22)
[2020-02-02] MEDS: ENOXAPARIN 40 MG/0.4 ML SYRINGE SQ SCH (09:22)
[2020-02-02] MEDS ORDERED: LORazepam 2 MG/ML INJ IV STA (10:01)
--- NOTE | 2020-02-02 11:22 | CONS ---
CONSULTATION Mrs. Aparicio is a 64-year-old female with known history of hypertension, hyperlipidemia, diabetes mellitus, and chronic tobacco use, who presented with some difficulty speaking and some right-sided weakness. Her symptoms have resolved at this point. Cardiology consultation was requested because of abnormal EKG. Patient denies any prior cardiac history. She denies any chest pain. No change in her breathing. She denies any dizziness or palpitation. No syncope. She has been followed by Dr. Allred for chronic neck pain. She carries a diagnosis of CVA in the past. She was in the hospital a year ago in October of 2018 and at that time underwent a dobutamine stress echocardiogram that revealed no evidence of inducible ischemia and her echocardiogram revealed preserved ventricular size and systolic function. Her EKG shows a T-wave inversion anteriorly that has been chronic without any changes. The patient has no prior history of myocardial infarction. Her coronary risk factors remarkable for history of hypertension, hyperlipidemia, diabetes mellitus, and smoking. MEDICATIONS: Include ProAir, Norvasc 10 mg daily, Duloxetine, Flonase, insulin, Singulair 10 mg daily, Plavix 75 mg daily, Zetia 10 mg daily. REVIEW OF SYSTEMS: RESPIRATORY SYSTEM: She has no recent wheezing or cough. She has history of obstructive lung disease. GI SYSTEM: No recent GI bleeding. No peptic ulcer disease. SYSTEM: No dysuria or hematuria. NERVOUS SYSTEM: She carries diagnosis of CVA. PHYSICAL EXAMINATION: She is a 64-year-old female, alert, oriented, in no apparent distress. Blood pressure 145/70 with a heart rate in the 80s. HEAD: Normocephalic. EYES: Sclerae nonicteric. NECK: Good upstroke, no bruit. No jugular venous distention. LUNGS: Clear to auscultation. HEART: Regular S1, S2. No S3. No rub. ABDOMEN: Soft, nontender. Positive bowel sounds, no organomegaly. EXTREMITIES: No edema, intact pulses. Speech is fluent. LAB DATA: Revealed a hemoglobin of 14.1, BUN and creatinine 16 and 0.87. Troponin less than 0.012. EKG revealed a sinus mechanism with T-wave inversion in the anterolateral leads that was noted in the past without evolution. Chest x-ray revealed no acute infiltrate. CT scan of the brain revealed an old left occipital infarct, unchanged. CT angiogram of the brain revealed no evidence of abnormality. IMPRESSION: 1. Speech disturbance and right-sided weakness, etiology unclear, has resolved, possible TIA. 2. Abnormal EKG with no evidence of acute ischemic syndrome. EKG is unchanged. In October of 2018, she underwent stress echocardiogram revealed no evidence of inducible ischemia with no prior history of coronary artery disease. 3. Hypertension. 4. Hyperlipidemia. 5. Diabetes mellitus. 6. Chronic tobacco use. RECOMMENDATION: I have discussed with her the importance of smoking cessation. At this time from the cardiac standpoint I seen no acute cardiac event. I will obtain echocardiogram with Doppler to evaluate the left ventricular systolic function. Otherwise, will see her on as-needed basis. Please feel free to call us for any question. MMODL / IJN: [id number] /
--- NOTE | 2020-02-02 12:00 | ECHOF ---
Referral Reason:possible stroke MEASUREMENTS -------- HEIGHT: 152.4 cm WEIGHT: 60.8 kg BP: 145/74 RVIDd: 2.3 cm (< 3.3) IVSd: 1.0 cm (0.6 - 1.1) LVIDd: 4.0 cm (3.9 - 5.3) LVPWd: 1.1 cm (0.6 - 1.1) IVSs: 1.9 cm LVIDs: 2.3 cm LVPWs: 1.8 cm LAESV Index (A-L): 20.17 ml/m Ao Diam: 2.7 cm (2.0 - 3.7) AV Cusp: 1.8 cm (1.5 - 2.6) LA Diam: 3.2 cm (2.7 - 3.8) MV EXCURSION: 12.148 mm (> 18.000) MV EF SLOPE: 41 mm/s (70 - 150) EPSS: 0.6 cm MV E Reggie: 0.56 m/s MV DecT: 154 ms MV A Reggie: 0.69 m/s MV E/A Ratio: 0.81 RAP: 5.00 mmHg RVSP: 9.86 mmHg FINDINGS -------- Sinus rhythm. This was a technically good study. The left ventricular size is normal. Left ventricular wall thickness is normal. Overall left vent ricular systolic function is normal with, an EF between 55 - 60 %. The diastolic filling pattern is normal for the age of the patient 9.12. The right ventricle is normal in size. The left atrial size is normal. Normal LA size by volume 22+/-6 ml/m2. The right atrial size is normal. Interatrial and interventricular septum intact. The aortic valve is trileaflet and appears structurally normal. The mitral valve is normal. There is trace mitral regurgitation. The tricuspid valve appears structurally normal. Trace tricuspid regurgitation present. Right angela tricular systolic pressure is normal at < 35 mmHg. There is no pulmonic regurgitation present. The aortic root size is normal. Normal inferior vena cava with normal inspiratory collapse consistent with estimated right atrial pre ssure of 5 mmHg. There is no pericardial effusion. CONCLUSIONS -------- 1. Sinus rhythm. 2. This was a technically good study. 3. The left ventricular size is normal. 4. Left ventricular wall thickness is normal. 5. Overall left ventricular systolic function is normal with, an EF between 55 - 60 %. 6. The diastolic filling pattern is normal for the age of the patient 9.12 7. The right ventricle is normal in size. 8. The left atrial size is normal. 9. Normal LA size by volume 22+/-6 ml/m2. 10. The right atrial size is normal. 11. Interatrial and interventricular septum intact. 12. The aortic valve is trileaflet and appears structurally normal. 13. The mitral valve is normal. 14. There is trace mitral regurgitation. 15. The tricuspid valve appears structurally normal. 16. Trace tricuspid regurgitation present. 17. Right ventricular systolic pressure is normal at < 35 mmHg. 18. There is no pulmonic regurgitation present. 19. The aortic root size is normal. 20. Normal inferior vena cava with normal inspiratory collapse consistent with estimated right atrial pressure of 5 mmHg. 21. There is no pericardial effusion. [employer]ER: Samantha Wong RDCS
[2020-02-02 12:01] LABS: Glucose,Whole Blood 113 mg/dL (75-99)
--- NOTE | 2020-02-02 14:53 | MR ---
EXAMINATION TYPE: MR brain wo/w con DATE OF EXAM: 02/02/2020 COMPARISON: 11/02/2017 HISTORY: Neurologic deficit with acute stroke suspected. Altered mental status TECHNIQUE: Multiplanar, multisequence images of the brain and brainstem is performed without and with IV contras t, utilizing 7.5 mL intravenous Gadavist . Fast brain protocol utilized to limit motion as the patien t was sleeping during exam medicated for claustrophobia. FINDINGS: Diffusion weighted images demonstrate multiple punctate foci of restricted diffusion within the left thalamus and posterior tip of the left lentiform nucleus as well as posterior aspect of the posterior limb of the left internal capsule. Encephalomalacia from prior infarct in the left occipit al lobe is seen with surrounding gliosis. This is demonstrated on the MRI of 11/02/2017. There is no e xtra-axial fluid collection. T2 and FLAIR imaging is markedly suboptimal given patient motion despite repeat scanning. Few scattered foci of T2/FLAIR hyperintensity are seen within the periventricular a nd subcortical white matter. New focus is seen in the left frontal gleason radiata in comparison to th e prior of 11/02/2017. Overall mild burden. The ventricular system and cisternal spaces are symmetrically prominent compatible with mild degree a ge-related volume loss. Slight increase in perineural fluid is seen around the optic nerves. Midline structures demonstrate normal morphology. Partially empty sella turcica incidentally noted. The craniocervical junction appears within normal limits. Post contrast images demonstrate no abnorm al enhancement although postcontrast images are limited by patient motion. As noted on the prior exam of 2017 the V4 segment of the left vertebral artery is not well visualized. Occlusion is possible. T he visualized sinuses are clear and the globes are intact. IMPRESSION: 1. Multiple punctate acute infarcts of the left thalamus, lentiform nucleus, and posterior limb of th e left internal capsule. Encephalomalacia and gliosis from old infarct of the left WARE CLEANER distribution i n the left occipital lobe. 2. Slight increased perineural fluid of the optic nerves and partially empty sella turcica can be see n in increased intracranial pressure. Correlate with ophthalmologic exam to to evaluate for papillede ma. 3. T2, FLAIR and postcontrast sequences are markedly suboptimal given extensive patient motion. 4. Suboptimal visualization of the V4 segment of the left vertebral artery, possibly chronically occl uded as suggested on the prior 11/12/2017. A Bibb level critical message alert has been initiated for Shanna Kat MD via the [employer] Critical Results System on 02/02/2020 2:50 PM. This message alert has been sent to Shanna Kat MD v [email or web address] the preferences provided by the clinician for the receipt of Radiology Critical Findings. Message ID [id number].
[2020-02-02 16:57] LABS: Glucose,Whole Blood 221 mg/dL (75-99)
--- NOTE | 2020-02-02 17:25 | P.PN ---
Subjective Progress Note Date: 02/02/20 Kiara Aparicio, is a 64-year-old female who presented to [facility] emergency room due to weakness, possibly more right sided weakness, and some difficulty with her speech. Patient states that on Sunday morning she woke up at 6:30 in the morning to let the dogs out, at that time she was feeling fine , she went back to sleep and woke up again at 8:30, at this time she was feeling very weak and and able to get out of bed, she decided to go back to sleep, she spends most of her day in bed, she stated that she was having difficulty getting up and walking and difficulty speaking, she was eventually able to talk to her son who called EMS and patient was brought in to [facility] emergency room. Patient was evaluated in the emergency room, she was afebrile blood pressure was 142/82 pulse ox 96% on room air, her physical exam was positive for right arm drift and mild aphasia, computed tomography scan of the brain did not reveal any acute intracranial abnormality there was evidence of an old left occipital lobe infarct unchanged compared to prior exam, CT angiogram of the brain was done and was negative, CT angiogram of the neck was done and was negative, chest x-ray did not reveal any acute abnormality, EKG revealed T-wave abnormality in the anterior and lateral leads. Patient was admitted to telemetry floor for further evaluation and treatment . Patient was seen and examined on the telemetry floor, she is alert and oriented 3 in no apparent distress, at this time speech is fluent patient is answering questions appropriately without any aphasia, there is no fever or chills no headache or dizziness no chest pain no shortness of breath no cough no nausea or vomiting no abdominal pain no diarrhea no burning was urination no frequency or urgency and no hematuria, there is minimal weakness in the right upper extremity as compared to the left, otherwise no acute focal neurological deficit. Patient was started on oral aspirin, she was also started on subcu Lovenox for DVT prophylaxis and oral Protonix for GI prophylaxis, we are still awaiting her home medication to be reviewed as patient has brought in 2 different lists of medications and the nurse is currently actively trying to reconcile her medications. On 02/02/2020 patient was seen and examined on the medical floor, MRI report reviewed, patient is feeling better there is no fever or chills no headache or dizziness no chest pain no shortness of breath no cough no nausea or vomiting no abdominal pain no diarrhea no burning was urination no frequency or urgency and no hematuria speech abnormality improving and the right upper extremity weakness is improving. MRI of the brain reveals multiple punctate acute infarcts of the left thalamus, lentiform nucleus, and posterior limb of the left internal capsule. Objective - Vital Signs Vital signs: Vital Signs Temp 98.1 F 02/02/20 11:30 Pulse 82 02/02/20 11:30 Resp 18 02/02/20 11:30 BP 151/80 02/02/20 11:30 Pulse Ox 95 02/02/20 11:30 Intake & Output 02/01/20 02/02/20 02/02/20 18:59 06:59 18:59 Intake Total 2092 748 5351 Balance 0596 768 1305 Weight 59 kg Intake: IV 800 Sodium Chloride 0.9% 1, 800 000 ml @ 100 mls/hr IV . Q10H ONE Rx#:[id number] Oral [phone] Other: Voiding Method Toilet # Voids 2 1 1 - Exam In general patient is alert and oriented 3 in no apparent distress HEENT head normocephalic and atraumatic Neck is supple no JVD no goiter no lymphadenopathy Chest exam reveals a few scattered crackles no wheezing Cardiac exam reveals regular heart sounds S1 and S2 no gallops no murmurs Abdomen is soft nontender no organomegaly with normal bowel sounds Extremity exam reveals no edema no cyanosis or clubbing Neurological exam reveals : Mental status patient is alert and oriented 3 speech is fluent at this time, cranial nerves II-12 are intact There is minimal right sided weakness involving the right upper extremity - Labs CBC & Chem 7: 02/02/20 06:18 02/02/20 06:18 Labs: Abnormal Lab Results - Last 24 Hours (Table) 02/01/20 02/02/20 02/02/20 Range/Units 20:52 06:18 06:20 Glucose 151 H (74-99) mg/dL POC Glucose (mg/dL) 156 H 155 H (75-99) mg/dL 02/02/20 02/02/20 Range/Units 12:00 16:43 Glucose (74-99) mg/dL POC Glucose (mg/dL) 113 H 221 H (75-99) mg/dL Assessment and Plan Plan: 1. Acute stroke . With episode of aphasia and right sided weakness, so far all testing including computed tomography scan of the brain and CT angiogram of the brain and neck are negative, will obtain MRI of the brain with contrast Will consult neurology. Start patient on aspirin. 2. Underlying history of hypertension 3. Underlying history of insulin-dependent diabetes mellitus 4. Underlying history of asthma 5. Underlying history of depression 6. Abnormal EKG showing T-wave abnormality in the anterior and lateral leads At this time we are awaiting further clarification on home medications MRI of the brain was ordered Cardiology and neurology consultation requested Will follow closely
[2020-02-02] MEDS: HYDROcodone/APAP 10-325MG 1 EACH TAB PO PRN (19:43)
[2020-02-02 20:41] LABS: Glucose,Whole Blood 157 mg/dL (75-99)
[2020-02-02] MEDS: INSULIN DETEMIR (LEVEMIR) 100 UNIT/ML SYR SQ SCH (20:50)
[2020-02-02] MEDS: MONTELUKAST 10 MG TAB PO SCH (20:50)
--- NOTE | 2020-02-03 02:12 | CONS ---
CONSULTATION DATE OF THIS DICTATION: 02/02/2020 HISTORY OF PRESENT ILLNESS: Thank you for allowing me to evaluate Kiara Aparicio who is a 64-year-old right- handed female who presented to [facility] on 01/31/2020 for evaluation of possible stroke. The patient states that she had been up at 6:30 a.m. on the morning of admission to let her dogs out and she was asymptomatic. She went back to bed and woke up at 8:30 a.m., tried to go to the bathroom and noted numbness involving the right face/arm/leg as well as weakness and when she tried to walk, the right leg "did not want to move" resulting in a fall. She states at that time she was near the toilet and missed, but did not strike her head or lose consciousness. She also states there was change in her speech, where she was only speaking one word at a time and could not get out what she wanted to, although comprehension was maintained. There was no associated vertigo, diplopia or difficulty chewing/swallowing and son called EMS. The patient was asymptomatic on the left. She was taking Plavix 75 mg q. day at the time of this event in a compliant fashion. At this time, the patient states her symptoms are better, her speech, right-sided weakness/numbness have improved and the patient states she has been able to get up to the bathroom by herself. The patient was previously hospitalized at [facility] in October 2017, at which time she presented with a right homonymous hemianopia and was diagnosed with a left MEDICAL TECHNOLOGIST CHEMISTRY infarct. MRI confirmed the stroke and MRA of the head revealed near-complete occlusion of a short segment of the left vertebral artery involving the V4 segment and a small saccular aneurysm at the right M1/M2 branch point. The patient was apparently transferred to [facility] and states that she had a transesophageal echocardiogram completed which to her knowledge was unrevealing. The patient was seen by Dr. Cowan at that time, whose note indicates the patient was aware of the aneurysm since 2013 and had been following on an annual basis at [facility], no surgical intervention was recommended. The patient states she was last seen there in that regard 2 years ago. The patient does follow with Dr. Allred of Neurology on an outpatient basis in the setting of the above issues as well as her chronic neck pain. ALLERGIES: BACLOFEN, GABAPENTIN, and NAPROXEN. HOME MEDICATIONS: [place], Zetia, Flexeril, Plavix, Singulair, meclizine, Lantus, NovoLog, Vistaril, Flonase, Cymbalta, Norvasc, and ProAir. PAST MEDICAL HISTORY: Left occipital infarct in October 2017, right M1/M2 branch point aneurysm, hypertension, diabetes mellitus, hyperlipidemia, tobacco abuse, asthma, anxiety, and chronic neck pain. PAST SURGICAL HISTORY: Cholecystectomy and appendectomy. SOCIAL HISTORY: The patient smokes a half pack per day and smoked since she was 28 years of age. She denied alcohol or drug use. She is single with 2 sons and lives in house with her sons. She has not been using any assistive devices to ambulate at home. FAMILY HISTORY: The patient's parents are . Mother had diabetes mellitus and father had a myocardial infarction. REVIEW OF SYSTEMS: Fourteen systems are reviewed and no additional complaints are identified compared to the review of systems documented in the history and physical. PHYSICAL EXAM: Upon arrival to the patient's room, she was sitting up in bed, receptive to the examiner. Affect is normal. She is an accurate historian and appears of stated age. VITAL SIGNS: Blood pressure is 144/74 with a pulse of 84, respiratory rate 16, temperature is 98.1, weight is 59 kg on a 5 foot 0 inch frame. SKIN AND EXTREMITIES: Clubbing is noted in the upper extremities. The patient has a tattoo on the left forearm. HEAD AND NECK: No tenderness or signs of trauma. Neck is supple without meningeal signs. Arteries are nontender and without bruits. HEART: Regular rate and rhythm. HIGHER CORTICAL FUNCTION: MENTAL STATUS: Patient was alert and oriented to time, place, and person. She was able to name, repeat and read. There was no right/left disorientation, finger agnosia extinction to double simultaneous stimulation or dysarthria. The patient's speech was fluent and she followed commands readily. There was no speech hesitancy, paraphasic errors, or perseveration at this time. CRANIAL NERVES II THROUGH XII: Pupils are equal and reactive to light symmetrically. No afferent pupillary defect. Visual nicole demonstrate a right inferior quadrant anopia. III, IV, : No ptosis. Extraocular movements are full. No nystagmus. V: The patient reports a diminution to pinprick and light touch involving the right side of the face as compared to the left. Motor 5 intact. VII: No facial asymmetry or weakness. Acuity intact to finger rub. IX, X: Palate ty in midline. XI: Trapezius strength intact. XII: Tongue protruded midline without fasciculation or atrophy. MOTOR EXAMINATION: There is no pronator drift. Normal bulk and tone is noted in all major muscle groups with no involuntary movements noted. Strength is 5/5 involving the left upper and lower extremity. There is pyramidal weakness of 5 minus/5 involving the right upper extremity and 4+/5 involving the right lower extremity. SENSORY: Patient reports diminution to pinprick and light touch involving the right upper and lower extremities compared to the left. REFLEXES: Right side listed first. Biceps 2, 2, brachioradialis 2, 2, triceps 2, 2, patella 2+, 2+, ankle 2, 2. Plantar responses flexor bilaterally. Jefferson's is absent. COORDINATION: Legpwm-zh-goxv, zzdd-zg-[id number] movements are intact. Rapid alternating movements are mildly slowed on the right with finger and foot tapping. DIAGNOSIS TESTING: The patient had a CT scan of brain completed without contrast in emergency room, which demonstrated the old left occipital infarct, unchanged compared to previous CT from 10/29/2017. CTA of the head/neck vessels was unrevealing, in particular no comment was made regarding the aneurysm or left V4 occlusion. MRI of the brain demonstrated evidence of an acute left thalamic/lenticular form nucleus/posterior limb of the left internal capsule infarct in addition to the old left MEDICAL TECHNOLOGIST CHEMISTRY infarct and suboptimal visualization of the left V4 segment of the left vertebral artery, "possibly chronically occluded as suggested on the prior study of 11/12/2017". Echocardiogram from 02/02/2020 demonstrated ejection fraction 55% to 60% and intact interatrial septum. LAB WORK: Lab work demonstrates a white blood count of 11.5, hemoglobin of 15.1, platelet count 387. Sodium 136, potassium 4.0, BUN 14 with a creatinine of 0.87. INR 0.9. Calcium 9.3. ALT 12, AST 18. Ammonia less than 9. Urine tox screen was positive for tricyclics. Alcohol screen negative. Urinalysis negative nitrate/leukocyte esterase. COVID testing negative. Telemetry has revealed normal sinus rhythm with PVCs. IMPRESSION: 1. 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 Risk factors for stroke include hypertension, diabetes mellitus, hyperlipidemia, tobacco abuse, and prior stroke. The patient was on Plavix 75 mg q. day at the time of this event and states she was taking this compliantly. 2. Left occipital infarct in October 2017 with residual right inferior quadrantanopia. 3. Chronic neck pain. 4. History of 2 mm right M1/M2 branch point aneurysm, previously following at [facility]. 5. Medical problems including asthma and anxiety. RECOMMENDATION: 1. I discussed my impression and plan with the patient and she expressed understanding. Case was also discussed with nursing staff. 2. The MRI of the brain confirmed the infarct described above and CTA of the head/neck vessels was unrevealing. 3. Echocardiogram demonstrated an ejection fraction of 55% to 60%, we will discuss with Cardiology the possibility of completing a bubble study and prolonged cardiac monitoring following discharge. The patient states a transesophageal echocardiogram was completed at the time of her prior stroke, which to her knowledge was unrevealing. 4. Agree with adding aspirin to the patient's Plavix. 5. Risk factor modification, would strongly recommend the patient to quit smoking. 6. Recommend intense statin therapy. 7. Physical, occupational and speech therapy evaluation and treatment as well as discharge planning. 8. Will follow with you. Thank you for allowing me to participate in the care of your patient. MMODL / IJN: [id number] / [id number]
[2020-02-03 06:18] LABS: Glucose,Whole Blood 119 mg/dL (75-99)
[2020-02-03] MEDS: INSULIN ASPART (NovoLOG) 100 UNIT/ML VIAL SQ SCH ×4 (06:30→21:08)
[2020-02-03] MEDS: PANTOPRAZOLE 40 MG TABLET PO SCH (06:33)
[2020-02-03 07:13] LABS: Cholesterol 210 mg/dL (<200); HDL Cholesterol 41 mg/dL (40-60); LDL Cholesterol,Calculated 109 mg/dL (0-99); Triglycerides 301 mg/dL (<150)
[2020-02-03] MEDS: hydrOXYzine PAMOATE 25 MG CAP PO SCH ×3 (08:07→21:09)
[2020-02-03] MEDS: CLOPIDOGREL 75 MG TAB PO SCH (08:08)
[2020-02-03] MEDS: DULoxetine HCL 60 MG CAPSULE.DR PO SCH (08:08)
[2020-02-03] MEDS: amLODIPine 10 MG TAB PO SCH (08:08)
[2020-02-03] MEDS: EZETIMIBE 10 MG TAB PO SCH (08:08)
[2020-02-03] MEDS: ASPIRIN 81 MG PO SCH (08:09)
[2020-02-03] MEDS: ENOXAPARIN 40 MG/0.4 ML SYRINGE SQ SCH (08:09)
[2020-02-03] MEDS: FLUTICASONE 50MCG/SPRAY NASAL 16GM EA NOSTRIL SCH (09:30)
[2020-02-03 11:49] LABS: Glucose,Whole Blood 180 mg/dL (75-99)
--- NOTE | 2020-02-03 12:05 | P.PN ---
Subjective Progress Note Date: 02/03/20 This is a pleasant 64-year-old female with known history of hypertension, hyperlipidemia, diabetes mellitus and chronic tobacco use. Presented with some difficulty speaking and right-sided weakness. The rest of the patient because of abnormal EKG which is unchanged compared to an EKG from 2019 at which time a dobutamine stress echo revealed no evidence of inducible ischemia and her echocardiogram revealed preserved ventricular size and systolic function. Echocardiogram done this admission showed normal LV systolic function with no segmental wall motion abnormalities and no significant valvular abnormalities. Vital signs are stable. MRI showed multiple punctate acute infarcts of the left thalamus, lentiform nucleus, and posterior limb of the left internal capsule as well as evidence of prior infarct. Neurology is following. CT angiogram of the brain and neck were both negative with no adverse change compared to old exam. Labs this morning showed total cholesterol 210, LDL 109, triglycerides 301 and HDL 41. She is currently on Zetia, aspirin 81 mg daily, Plavix. Objective - Vital Signs Vital signs: Vital Signs Temp 98.2 F 02/03/20 08:20 Pulse 83 02/03/20 08:20 Resp 18 02/03/20 08:20 BP 129/75 02/03/20 08:20 Pulse Ox 94 L 02/03/20 08:20 Intake & Output 02/02/20 02/03/20 02/03/20 18:59 06:59 18:59 Intake Total 1316 240 240 Balance 1316 240 240 Weight 61.2 kg Intake: Oral 1316 240 240 Other: # Voids 1 2 - Exam PHYSICAL EXAMINATION: HEENT: Head is atraumatic, normocephalic. Pupils equal, round. Neck is supple. There is no elevated jugular venous pressure. No carotid bruit. HEART EXAMINATION: Heart sounds regular, S1 and S2 normal. No murmur or gallop heard. CHEST EXAMINATION: Lungs are clear to auscultation and precussion. No chest wall tenderness is noted on palpation or with deep breathing. ABDOMEN: Soft, nontender. Bowel sounds are heard. No organomegaly noted. EXTREMITIES: 2+ peripheral pulses with no evidence of peripheral edema and no calf tenderness noted. NEUROLOGIC patient is awake, alert and oriented x3. . - Labs CBC & Chem 7: 02/02/20 06:18 02/02/20 06:18 Labs: Abnormal Lab Results - Last 24 Hours (Table) 02/02/20 02/02/20 02/02/20 Range/Units 12:00 16:43 20:40 POC Glucose (mg/dL) 113 H 221 H 157 H (75-99) mg/dL Triglycerides (<150) mg/dL Cholesterol (<200) mg/dL LDL Cholesterol, Calc (0-99) mg/dL 02/03/20 02/03/20 02/03/20 Range/Units 06:17 06:25 11:48 POC Glucose (mg/dL) 119 H 180 H (75-99) mg/dL Triglycerides 301 H (<150) mg/dL Cholesterol 210 H (<200) mg/dL LDL Cholesterol, Calc 109 H (0-99) mg/dL Assessment and Plan Assessment: #1 CVA #2 abnormal EKG unchanged compared to EKG from October 2018 #3 hypertension #4 hyperlipidemia #5 diabetes mellitus #6 chronic tobacco use Plan: From cardiology perspective, we will add Lipitor. At this time we will follow the patient on an as-needed basis during this admission. We will follow-up with the patient in the office for further workup including possible bubble study as well as possible event monitor to rule out arrhythmia. May consider adding an KARLA inhibitor or ARB. NUCLEAR POWER REACTOR OPERATOR note has been reviewed, I agree with a documented findings and plan of care. Patient was seen and examined.
--- NOTE | 2020-02-03 15:32 | PN ---
PROGRESS NOTE DATE OF SERVICE: 02/03/2020 The patient currently reports no complaints. She has noted improvement in her right- sided strength as well as reduction in the right-sided numbness. CURRENT MEDICATIONS: Norvasc, aspirin 81 mg daily, Lipitor 40 mg daily, Plavix, Flexeril, Cymbalta, Lovenox, Zetia, Flonase, [place], Vistaril, NovoLog, Levemir, Antivert, Singulair and Protonix. PHYSICAL EXAMINATION: The patient is lying in bed comfortably, receptive to the examiner. Affect is normal and she is an accurate historian. VITAL SIGNS: Blood pressure is 146/78 with a pulse of 83, respiratory rate 16, temperature 98. NEUROLOGIC EXAMINATION: The patient is alert and oriented to time, place and person. There is no aphasia or dysarthria. Cranial nerves 2-12 demonstrate a right inferior quadrant anopia but otherwise intact. On motor examination, there is no pronator drift. Normal bulk. Tone is normal in all major muscle groups with no involuntary movements noted. Strength is 5/5 involving the left upper and lower extremity. There is minimal pyramidal weakness on the right at 5 minus over 5. Sensory: Patient reports diminution to pinprick and light touch involving the right lower extremity as compared to the left. The upper extremities were fairly symmetric. Plantar response is flexor bilaterally. Jefferson's is absent. Coordination [id number], [id number] movements are intact. Rapid alternating movements are mildly slowed on the right. DIAGNOSTIC TESTING: The patient's labs demonstrate a cholesterol of 210 with an LDL of 109, HDL of 41, triglycerides 301. IMPRESSION: 1. Left thalamocapsular infarct, likely secondary to large vessel atherosclerotic disease. Risk factors for stroke include hypertension, diabetes mellitus, hyperlipidemia, tobacco abuse and prior stroke. The patient was on Plavix 75 mg daily at the time of this event. 2. 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 3. Distal left vertebral chronic occlusion. 4. 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 5. Chronic neck pain. RECOMMENDATIONS: 1. Case was discussed with the patient, nursing staff, and Lizeth (nurse practitioner for the cardiology service). Lizeth states that the cardiology service plans to pursue an outpatient event monitor for more prolonged cardiac monitoring and are requesting the transesophageal echocardiogram report from [facility] to review. 2. The patient is currently maintained on Plavix, aspirin and Lipitor. 3. Risk factor modification. It was strongly recommended to the patient that she quit smoking. 4. The patient will follow up with her outpatient neurologist upon discharge. 5. Please feel free to contact me if there are further questions from a neurologic standpoint. Thank you for this consultation. MMDORINDAL / IJN: [id number] / BLANCHE
[2020-02-03] MEDS: ATORVASTATIN 40 MG TAB PO SCH (15:56)
[2020-02-03 17:15] LABS: Glucose,Whole Blood 163 mg/dL (75-99)
--- NOTE | 2020-02-03 17:55 | P.PN ---
Subjective Progress Note Date: 02/03/20 Kiara Aparicio, is a 64-year-old female who presented to [facility] emergency room due to weakness, possibly more right sided weakness, and some difficulty with her speech. Patient states that on Sunday morning she woke up at 6:30 in the morning to let the dogs out, at that time she was feeling fine , she went back to sleep and woke up again at 8:30, at this time she was feeling very weak and and able to get out of bed, she decided to go back to sleep, she spends most of her day in bed, she stated that she was having difficulty getting up and walking and difficulty speaking, she was eventually able to talk to her son who called EMS and patient was brought in to [facility] emergency room. Patient was evaluated in the emergency room, she was afebrile blood pressure was 142/82 pulse ox 96% on room air, her physical exam was positive for right arm drift and mild aphasia, computed tomography scan of the brain did not reveal any acute intracranial abnormality there was evidence of an old left occipital lobe infarct unchanged compared to prior exam, CT angiogram of the brain was done and was negative, CT angiogram of the neck was done and was negative, chest x-ray did not reveal any acute abnormality, EKG revealed T-wave abnormality in the anterior and lateral leads. Patient was admitted to telemetry floor for further evaluation and treatment . Patient was seen and examined on the telemetry floor, she is alert and oriented 3 in no apparent distress, at this time speech is fluent patient is answering questions appropriately without any aphasia, there is no fever or chills no headache or dizziness no chest pain no shortness of breath no cough no nausea or vomiting no abdominal pain no diarrhea no burning was urination no frequency or urgency and no hematuria, there is minimal weakness in the right upper extremity as compared to the left, otherwise no acute focal neurological deficit. Patient was started on oral aspirin, she was also started on subcu Lovenox for DVT prophylaxis and oral Protonix for GI prophylaxis, we are still awaiting her home medication to be reviewed as patient has brought in 2 different lists of medications and the nurse is currently actively trying to reconcile her medications. On 02/02/2020 patient was seen and examined on the medical floor, MRI report reviewed, patient is feeling better there is no fever or chills no headache or dizziness no chest pain no shortness of breath no cough no nausea or vomiting no abdominal pain no diarrhea no burning was urination no frequency or urgency and no hematuria speech abnormality improving and the right upper extremity weakness is improving. MRI of the brain reveals multiple punctate acute infarcts of the left thalamus, lentiform nucleus, and posterior limb of the left internal capsule. On 02/03/2020 patient was seen and examined on the telemetry floor neurology input reviewed, patient is currently maintained on aspirin, Plavix, Lipitor, and that Zetia, there is some improvement in her speech and in her right upper extremity weakness, there is no fever or chills no headache or dizziness no chest pain no shortness of breath no cough no nausea or vomiting no abdominal p ain no diarrhea and no urinary symptoms Objective - Vital Signs Vital signs: Vital Signs Temp 97.4 F L 02/03/20 11:40 Pulse 84 02/03/20 11:40 Resp 18 02/03/20 11:40 BP 141/69 02/03/20 11:40 Pulse Ox 91 L 02/03/20 11:40 Intake & Output 02/02/20 02/03/20 02/03/20 18:59 06:59 18:59 Intake Total 1316 240 730 Balance 1316 240 730 Weight 61.2 kg Intake: Oral 1316 240 730 Other: # Voids 1 2 - Exam In general patient is alert and oriented 3 in no apparent distress HEENT head normocephalic and atraumatic Neck is supple no JVD no goiter no lymphadenopathy Chest exam reveals a few scattered crackles no wheezing Cardiac exam reveals regular heart sounds S1 and S2 no gallops no murmurs Abdomen is soft nontender no organomegaly with normal bowel sounds Extremity exam reveals no edema no cyanosis or clubbing Neurological exam reveals : Mental status patient is alert and oriented 3 speech is fluent at this time, cranial nerves II-12 are intact There is minimal right sided weakness involving the right upper extremity - Labs CBC & Chem 7: 02/02/20 06:18 02/02/20 06:18 Labs: Abnormal Lab Results - Last 24 Hours (Table) 02/02/20 02/03/20 02/03/20 Range/Units 20:40 06:17 06:25 POC Glucose (mg/dL) 157 H 119 H (75-99) mg/dL Hemoglobin A1c 7.0 H (4.0-6.0) % Triglycerides (<150) mg/dL Cholesterol (<200) mg/dL LDL Cholesterol, Calc (0-99) mg/dL 02/03/20 02/03/20 Range/Units 06:25 11:48 POC Glucose (mg/dL) 180 H (75-99) mg/dL Hemoglobin A1c (4.0-6.0) % Triglycerides 301 H (<150) mg/dL Cholesterol 210 H (<200) mg/dL LDL Cholesterol, Calc 109 H (0-99) mg/dL Assessment and Plan Plan: 1. Acute stroke . With episode of aphasia and right sided weakness, so far all testing including computed tomography scan of the brain and CT angiogram of the brain and neck are negative, will obtain MRI of the brain with contrast Will consult neurology. Start patient on aspirin. 2. Underlying history of hypertension 3. Underlying history of insulin-dependent diabetes mellitus 4. Underlying history of asthma 5. Underlying history of depression 6. Abnormal EKG showing T-wave abnormality in the anterior and lateral leads At this time we are awaiting further clarification on home medications MRI of the brain was ordered Cardiology and neurology consultation requested Will follow closely
[2020-02-03 20:36] LABS: Glucose,Whole Blood 130 mg/dL (75-99)
[2020-02-03] MEDS: INSULIN DETEMIR (LEVEMIR) 100 UNIT/ML SYR SQ SCH (21:00)
[2020-02-03] MEDS: HYDROcodone/APAP 10-325MG 1 EACH TAB PO PRN (21:01)
[2020-02-03] MEDS: MONTELUKAST 10 MG TAB PO SCH (21:09)
[2020-02-04 06:04] LABS: Glucose,Whole Blood 127 mg/dL (75-99)
[2020-02-04] MEDS: INSULIN ASPART (NovoLOG) 100 UNIT/ML VIAL SQ SCH ×3 (06:45→16:39)
[2020-02-04 07:21] LABS: Basophils # (A) 0.1 k/uL (0-0.2); Basophils % (A) 1 %; Eosinophils # (A) 0.4 k/uL (0-0.7); Eosinophils % (A) 5 %; HCT 45.5 % (34.0-46.0); HGB 14.9 gm/dL (11.4-16.0); Lymphocytes # (A) 2.2 k/uL (1.0-4.8); Lymphocytes % (A) 25 %; MCH 29.1 pg (25.0-35.0); MCHC 32.7 g/dL (31.0-37.0); Mean Platelet Volume 7.1; Monocytes # (A) 0.6 k/uL (0-1.0); Monocytes % (A) 6 %; Neutrophils # (A) 5.3 k/uL (1.3-7.7); Neutrophils % (A) 61 %; Platelet Count 376 k/uL (150-450); RBC 5.11 m/uL (3.80-5.40); RDW 14.3 % (11.5-15.5); WBC 8.7 k/uL (3.8-10.6)
[2020-02-04 07:26] LABS: ALT 16 U/L (4-34); AST 22 U/L (14-36); African American GFR (CKD) >90 (>60 ml/min/1.73 sqM); Albumin 3.8 g/dL (3.5-5.0); Alkaline Phosphatase 113 U/L (38-126); Anion Gap 6 mmol/L; Blood Urea Nitrogen 24 mg/dL (7-17); Calcium 9.1 mg/dL (8.4-10.2); Carbon Dioxide 24 mmol/L (22-30); Chloride 106 mmol/L (98-107); Glucose 118 mg/dL (74-99); Non-African American GFR(CKD) 83 (>60 ml/min/1.73 sqM); Potassium 4.4 mmol/L (3.5-5.1); Sodium 136 mmol/L (137-145); Total Bilirubin 0.3 mg/dL (0.2-1.3); Total Protein 7.1 g/dL (6.3-8.2)
[2020-02-04 08:47] VITALS: RESP 18
[2020-02-04] MEDS: ATORVASTATIN 40 MG TAB PO SCH (08:53)
[2020-02-04] MEDS: amLODIPine 10 MG TAB PO SCH (08:53)
[2020-02-04] MEDS: PANTOPRAZOLE 40 MG TABLET PO SCH (08:53)
[2020-02-04] MEDS: EZETIMIBE 10 MG TAB PO SCH (08:53)
[2020-02-04] MEDS: CLOPIDOGREL 75 MG TAB PO SCH (08:53)
[2020-02-04] MEDS: FLUTICASONE 50MCG/SPRAY NASAL 16GM EA NOSTRIL SCH (08:53)
[2020-02-04] MEDS: ASPIRIN 81 MG PO SCH (08:53)
[2020-02-04] MEDS: hydrOXYzine PAMOATE 25 MG CAP PO SCH ×2 (08:53→16:38)
[2020-02-04] MEDS: ENOXAPARIN 40 MG/0.4 ML SYRINGE SQ SCH (08:53)
[2020-02-04] MEDS: DULoxetine HCL 60 MG CAPSULE.DR PO SCH (08:53)
[2020-02-04 11:41] LABS: Glucose,Whole Blood 134 mg/dL (75-99)
[2020-02-04 12:06] VITALS: BP 118/68; PULSE 84; TEMP 98.1
[2020-02-04 16:33] LABS: Glucose,Whole Blood 126 mg/dL (75-99)
--- NOTE | 2020-02-05 13:14 | CDI ---
Documentation Clarification Form Date: 02/05/20 From: Stefany King Phone: If you have a question about this query, please contact Magi Mendoza, Gear Hobber Operator at [phone] between 8am and 5pm. Admit Date: 02/02/20 Discharge Date:02/04/20 Patient Name: Kiara Aparicio Visit Number: [id number] ATTENTION: The Clinical Documentation Specialists (CDI) and [facility] Coding Staff appreciate your assistance in clarifying documentation. Please respond to the clarification below the line at the bottom and electronically sign. The CDI & [facility] Coding staff will review the response and follow-up if needed. Please note: Queries are made part of the Legal Health Record. If you have any questions, please contact the author of this message via ITS. Dear Dr. Kat Altered Mental Status was documented in the ED note. History/Risk Factors: CVA with aphasia and right sided weakness, diabetes, hypertension Clinical Indicators: Appeared intoxicated, lethargic Labs: WBC 11.5 CT: Brain wo cont - No acute intracranial abnormality. CT: head and neck - Negative CT angiogram of the brain. MRI Brain: Multiple punctate acute infarcts of the left thalamus, lentiform nucleus, and posterior limb of the left internal capsule Treatment: Plavix In your professional opinion, please clarify the etiology of the Altered Mental Status, if known. Delirium (specify cause): Dementia (if know, specify Type and if with/without Behavioral Disturbance) Encephalopathy (specify Type and Underlying Medical Illness) Other condition (please specify) Unable to determine Encephalopathy related to acute stroke MTDD
--- NOTE | 2020-02-10 18:52 | P.DS ---
Providers Date of admission: 02/02/20 07:55 Expected date of discharge: 02/04/20 Attending physician: Shanna Kat Consults: 02/01/20 13:06 Consult Physician Routine Consulting Provider: Talita Velazquez Consult Reason/Comments: Right sided weakness, speech abnormality Do you want consulting provider notified?: Yes 02/01/20 13:07 Consult Physician Routine Consulting Provider: Supa Amor Consult Reason/Comments: abnormal EKG, possible stroke Do you want consulting provider notified?: Yes Primary care physician: Kiah Amin Hospital Course: Diagnosis on discharge: 1. Acute stroke . With episode of aphasia and right sided weakness, so far all testing including computed tomography scan of the brain and CT angiogram of the brain and neck are negative, will obtain MRI of the brain with contrast Will consult neurology. Start patient on aspirin. 2. Underlying history of hypertension 3. Underlying history of insulin-dependent diabetes mellitus 4. Underlying history of asthma 5. Underlying history of depression 6. Abnormal EKG showing T-wave abnormality in the anterior and lateral leads Hospital course: Kiara Aparicio, is a 64-year-old female who presented to [facility] emergency room due to weakness, possibly more right sided weakness, and some difficulty with her speech. Patient states that on Sunday morning she woke up at 6:30 in the morning to let the dogs out, at that time she was feeling fine , she went back to sleep and woke up again at 8:30, at this time she was feeling very weak and and able to get out of bed, she decided to go back to sleep, she spends most of her day in bed, she stated that she was having difficulty getting up and walking and difficulty speaking, she was eventually able to talk to her son who called EMS and patient was brought in to [facility] emergency room. Patient was evaluated in the emergency room, she was afebrile blood pressure was 142/82 pulse ox 96% on room air, her physical exam was positive for right arm drift and mild aphasia, computed tomography scan of the brain did not reveal any acute intracranial abnormality there was evidence of an old left occipital lobe infarct unchanged compared to prior exam, CT angiogram of the brain was done and was negative, CT angiogram of the neck was done and was negative, chest x-ray did not reveal any acute abnormality, EKG revealed T-wave abnormality in the anterior and lateral leads. Patient was admitted to telemetry floor for further evaluation and treatment . Patient was seen and examined on the telemetry floor, she is alert and oriented 3 in no apparent distress, at this time speech is fluent patient is answering questions appropriately without any aphasia, there is no fever or chills no headache or dizziness no chest pain no shortness of breath no cough no nausea or vomiting no abdominal pain no diarrhea no burning was urination no frequency or urgency and no hematuria, there is minimal weakness in the right upper extremity as compared to the left, otherwise no acute focal neurological deficit. Patient was started on oral aspirin, she was also started on subcu Lovenox for DVT prophylaxis and oral Protonix for GI prophylaxis, we are still awaiting her home medication to be reviewed as patient has brought in 2 different lists of medications and the nurse is currently actively trying to reconcile her medications. On 02/02/2020 patient was seen and examined on the medical floor, MRI report reviewed, patient is feeling better there is no fever or chills no headache or dizziness no chest pain no shortness of breath no cough no nausea or vomiting no abdominal pain no diarrhea no burning was urination no frequency or urgency and no hematuria speech abnormality improving and the right upper extremity weakness is improving. MRI of the brain reveals multiple punctate acute infarcts of the left thalamus, lentiform nucleus, and posterior limb of the left internal capsule. On 02/03/2020 patient was seen and examined on the telemetry floor neurology input reviewed, patient is currently maintained on aspirin, Plavix, Lipitor, and that Zetia, there is some improvement in her speech and in her right upper extremity weakness, there is no fever or chills no headache or dizziness no chest pain no shortness of breath no cough no nausea or vomiting no abdominal pain no diarrhea and no urinary symptoms On 02/04/2020 patient was seen and examined on the telemetry floor, she is alert and oriented 3 in no apparent distress her speech is fluent she was evaluated by cardiology and neurology no further inpatient intervention was recommended patient was cleared for discharge patient will be discharged home she will be followed by her primary care physician within one week. Patient Condition at Discharge: Fair Plan - Discharge Summary Discharge Rx Participant: No New Discharge Prescriptions: New Aspirin 81 mg PO DAILY chew Atorvastatin [Lipitor] 40 mg PO DAILY tab Atorvastatin [Lipitor] 40 mg PO DAILY 90 Days #90 tablet Aspirin EC [Ecotrin Low Dose] 81 mg PO DAILY #0 tablet.dr Shae Montelukast [Singulair] 10 mg PO HS Meclizine HCl 25 mg PO Q6H PRN PRN Reason: Vertigo Fluticasone Nasal [place] [Flonase Nasal [place]] 2 spray EA NOSTRIL DAILY amLODIPine [Norvasc] 10 mg PO DAILY Albuterol Sulfate [Proair Hfa] 2 puff INHALATION RT-Q4H PRN PRN Reason: Cough hydrOXYzine PAMOATE [Vistaril] 100 mg PO HS PRN PRN Reason: Anxiety DULoxetine HCL [Cymbalta] 60 mg PO DAILY Hydrocodone/Acetaminophen [[place] 10-325] 2 - 3 tab PO DAILY PRN PRN Reason: Pain Insulin Glargine [Lantus] 10 unit SQ HS Insulin Aspart [NovoLOG Flexpen] 5 units SQ DAILY Ezetimibe [Zetia] 10 mg PO DAILY Cyclobenzaprine [Flexeril] 10 mg PO BID PRN PRN Reason: muscle spasms hydrOXYzine PAMOATE [Vistaril] 50 mg PO TID Clopidogrel [Plavix] 75 mg PO DAILY Discharge Medication List Meclizine HCl 25 mg PO Q6H PRN 01/01/16 [History] Montelukast [Singulair] 10 mg PO HS 01/01/16 [History] Fluticasone Nasal [place] [Flonase Nasal [place]] 2 spray EA NOSTRIL DAILY 01/02/16 [History] amLODIPine [Norvasc] 10 mg PO DAILY 01/02/16 [History] Albuterol Sulfate [Proair Hfa] 2 puff INHALATION RT-Q4H PRN 10/29/17 [History] DULoxetine HCL [Cymbalta] 60 mg PO DAILY 10/29/17 [History] hydrOXYzine PAMOATE [Vistaril] 100 mg PO HS PRN 10/29/17 [History] Hydrocodone/Acetaminophen [[place] 10-325] 2 - 3 tab PO DAILY PRN 01/13/18 [History] Insulin Aspart [NovoLOG Flexpen] 5 units SQ DAILY 01/13/18 [History] Insulin Glargine [Lantus] 10 unit SQ HS 01/13/18 [History] Clopidogrel [Plavix] 75 mg PO DAILY 02/01/20 [History] Cyclobenzaprine [Flexeril] 10 mg PO BID PRN 02/01/20 [History] Ezetimibe [Zetia] 10 mg PO DAILY 02/01/20 [History] hydrOXYzine PAMOATE [Vistaril] 50 mg PO TID 02/01/20 [History] Aspirin 81 mg PO DAILY chew 02/04/20 [Rx] Aspirin EC [Ecotrin Low Dose] 81 mg PO DAILY #0 tablet.dr 02/04/20 [Rx] Atorvastatin [Lipitor] 40 mg PO DAILY tab 02/04/20 [Rx] Atorvastatin [Lipitor] 40 mg PO DAILY 90 Days #90 tablet 02/04/20 [Rx] Follow up Appointment(s)/Referral(s): Kiah Amin MD [Primary Care Provider] - 1-2 days (office closed - please call to make a follow-up appointment) [facility], [NON-STAFF] - Patient Instructions/Handouts: Vertigo (DC), Ischemic Stroke (DC), Weakness (DC) Activity/Diet/Wound Care/Special Instructions: Patient requires a walker at discharge secondary to CVA and unsteady gait Discharge Disposition: HOME SELF-CARE
== END 2020-02-04 17:45 | disposition home or self-care (01) | DRG 65 ==
LOC: EC 17:17 → 3SCARD 20:28 → OBSVTOIN 02-02 07:55
PROVIDERS: ADMIT Internal Medicine; ATTEND Internal Medicine
DX: I63.59 Cerebral infarction due to unspecified occlusion or stenosis of other cerebral artery (principal); G81.91 Hemiplegia, unspecified affecting right dominant side; G93.49 Other encephalopathy; R47.01 Aphasia; I67.1 Cerebral aneurysm, nonruptured; E86.0 Dehydration; H53.461 Homonymous bilateral field defects, right side; R29.708 NIHSS score 8; E11.9 Type 2 diabetes mellitus without complications; J44.9 Chronic obstructive pulmonary disease, unspecified; E78.5 Hyperlipidemia, unspecified; F17.210 Nicotine dependence, cigarettes, uncomplicated; F41.9 Anxiety disorder, unspecified; G89.29 Other chronic pain; I10 Essential (primary) hypertension; F32.9 Major depressive disorder, single episode, unspecified; M54.9 Dorsalgia, unspecified; Z11.59 Encounter for screening for other viral diseases; M54.2 Cervicalgia; R94.31 Abnormal electrocardiogram [ECG] [EKG]; I69.398 Other sequelae of cerebral infarction; Z79.4 Long term (current) use of insulin; Z79.51 Long term (current) use of inhaled steroids; Z79.82 Long term (current) use of aspirin; Z79.899 Other long term (current) drug therapy; Z88.6 Allergy status to analgesic agent; Z88.8 Allergy status to other drugs, medicaments and biological substances; Z90.49 Acquired absence of other specified parts of digestive tract; Z82.49 Family history of ischemic heart disease and other diseases of the circulatory system; Z83.3 Family history of diabetes mellitus; Z84.1 Family history of disorders of kidney and ureter
CPT/HCPCS: 36415; 70450; 70496; 70498; 70553; 71046; 80053; 80061; 80306; 80320; 81003; 82140; 83036; 84484; 85025; 85610; 85730; 93005; 93306; 96361; 96374; 99285

== ENCOUNTER → 2021-04-08 | Outpatient (CLI) | payer MEDICARE ==
--- NOTE | 2021-04-09 04:35 | MR ---
EXAMINATION TYPE: MR giuliana/lskarolina wo/w con DATE OF EXAM: 04/08/2021 COMPARISON: None HISTORY: Mid back pain, abnormal MR at [facility]. CONTRAST: Standard multiplanar, multisequence MRI departmental protocol utilizing 6 mL intravenous Gadavist selene olinium contrast. The thoracic vertebra have normal alignment. There is moderate posterior disc herniation at T8-T9 lev el with mild impingement on the spinal canal and thoracic spinal cord. There is no significant deform ity of the cord. I see no thoracic spinal cord edema. There are spondylotic changes in the cervical s pine. There is mild posterior disc bulging noted at C3-4 C5-6 and C6-7. There is no thoracic paraspin al mass. There is no compression fracture. The thoracic posterior elements are intact. The thoracic vertebra have normal alignment. There is minimal disc space narrowing and decreased sign al in the thoracic discs. There is small posterior disc bulging at L1-L2 3 and L4-5 and L5-S1. There is developmentally adequate spinal canal and no significant spinal stenosis. There are sacral cyst no matilde at the S2-S3 level. There is no thoracic paraspinal mass. I see no focal bone destruction. The sa croiliac joints appear intact. Thoracic and lumbar spine show no pathologic enhancement. IMPRESSION: Multiple mild posterior disc bulging and herniation in the lumbar spine. No lumbar spinal stenosis. P osterior disc herniation at T8-T9 level with contact with the spinal cord but no effacement. No cord edema. No evidence of lumbar or thoracic spinal compression fracture.
== END | disposition home or self-care (01) ==
LOC: RADMRIMAIN 17:21
PROVIDERS: ATTEND Physician Assistant
DX: M51.24 Other intervertebral disc displacement, thoracic region (principal)
CPT/HCPCS: 72157; 72158; A9585

== ENCOUNTER → 2021-07-28 | Outpatient (CLI) | payer MEDICARE, OTHER ==
--- NOTE | 2021-07-29 12:48 | MM ---
Reason for exam: screening (asymptomatic). Last mammogram was performed 2 years and 3 months ago. History: Patient is postmenopausal. Benign ultrasound-guided core biopsy of the left breast, August 05, 2002. Core biopsy of the left breast. Physical Findings: A clinical breast exam by your physician is recommended on an annual basis and results should be correlated with mammographic findings. MG 3D Screening Mammo W/Cad Bilateral CC and MLO view(s) were taken. Prior study comparison: May 09, 2019, bilateral MG 3d screening mammo w/cad. January 31, 2016, left breast MG work up mamm w CAD LT. The breast tissue is heterogeneously dense. This may lower the sensitivity of mammography. Finding: There are stable, fine, grouped/clustered calcifications in the middle position of the right breast on CC view. There are new grouped calcifications in the left breast on MLO view. ASSESSMENT: Incomplete: need additional imaging evaluation, BI-RAD 0 RECOMMENDATION: Special view mammogram of the left breast. [facility] will attempt to contact patient to return for supplemental views.
== END | disposition home or self-care (01) ==
LOC: RADMAMWWP 16:22
PROVIDERS: ATTEND Family Medicine
DX: Z12.31 Encounter for screening mammogram for malignant neoplasm of breast (principal); Z78.0 Asymptomatic menopausal state
CPT/HCPCS: 77063; 77067

== ENCOUNTER → 2022-04-24 | Outpatient (CLI) | payer MEDICARE, OTHER ==
--- NOTE | 2022-04-25 07:01 | CTL ---
EXAMINATION TYPE: CT Low Dose Lung DATE OF EXAM ORDERED: 04/24/2022 HISTORY: Long-term tobacco use. Lung cancer screening CT DLP: 82.[address] CTDI: 2.30 mGy Automated exposure control for dose reduction was used. SCREENING VISIT: Baseline COMPARISON: None TECHNIQUE: Low dose computed tomography scan was performed through the chest at 1 mm thick sections a nd reconstructed images in multiple planes at 1 mm and [address] DIAGNOSTIC QUALITY: Satisfactory FINDINGS: LUNG NODULES: Present, detailed below: Anterior right upper lobe 5.7 x 4.9 mm nodule axial image 84. Anterior right upper lobe 4.5 x 3.7 mm nodule axial image 95. Calcified 2 to 3 mm posterior right apical nodule axial image 35. There is 4.9 x 6.6 mm right middle lobe nodule abutting the minor fissure axial image 148 LUNGS: COPD: Severity: Mild to moderate Fibrosis: Severity: Mild peripheral Lymph nodes: Prominent borderline enlarged 1.5 x 0.9 cm right tracheobronchial lymph node axial image 108. Other findings: Calcification at aortic root mitral RIGHT PLEURAL SPACE: Effusion: None Calcification: None Thickening: None Pneumothorax: None LEFT PLEURAL SPACE: Effusion: None Calcification: None Thickening: None Pneumothorax: None HEART: Heart Size: Normal Coronary Calcification: Mild to moderate three-vessel Pericardial Effusion: Small to tiny OTHER FINDINGS: Upper abdomen: Numerous Cholecystectomy clips Bony thorax: None Supraclavicular region: None Other: None IMPRESSION: Mild to moderate emphysematous change with scattered small right-sided nodules up to near ly [address] LUNG RAD AND CT CHEST RECOMMENDATION: Lung-Rad 3 Probably Benign: 6 month follow-up LDCT. S Modifier (other clinically significant findings): None
== END | disposition home or self-care (01) ==
LOC: RADCTMAIN 16:21
PROVIDERS: ATTEND Family Medicine
DX: Z12.2 Encounter for screening for malignant neoplasm of respiratory organs (principal); J43.9 Emphysema, unspecified; Z87.891 Personal history of nicotine dependence
CPT/HCPCS: 71271

== ENCOUNTER → 2022-08-23 | Outpatient (CLI) | payer MEDICARE, OTHER ==
--- NOTE | 2022-08-23 09:09 | BD ---
EXAMINATION TYPE: Axial Bone Density DATE OF EXAM: 08/23/2022 COMPARISON: BASELINE CLINICAL HISTORY: 67 years year old Female. ICD-10 CODE: Z780 ASYMPT [place] Height: 59 Weight: 120 FRAX RISK QUESTIONS: Family History (Parent hip fracture): NO History of Fracture in Adulthood: NO Secondary Osteoporosis: NO Rheumatoid Arthritis: NO Current Tobacco Use: NO RISK FACTORS HISTORY OF: Family History of Osteoporosis: NO Active: YES Diet low in dairy products/other sources of calcium: YES Postmenopausal woman: YES 56 Lost more than 2 inches in height since high school: YES 3INCHES Frequent falls: NO Poor Health: NO Hyperparathyroidism: NO Adrenal Insufficiency: NO MEDICATIONS: Additional Medications: YES INSULIN, HBP , ALLERGY MEDS , VIT D , ANXIETY EXAM MEASUREMENTS: Bone mineral densitometry was performed using the [employer] System. Bone mineral density as measured about the Lumbar spine is: ----- L1-L4(G/cm2): 1.085 T Score Values are as follows: ----- L1: -0.7 ----- L2: -1.2 ----- L3: -0.4 ----- L4: -1.0 ----- L1-L4: -0.8 Bone mineral density BASELINE Bone mineral density about the R hip (g/cm2): 0.790 Bone mineral density about the L hip (g/cm2): 0.877 T Score values are as follows: -----R Neck: -2.2 -----L Neck: -2.2 -----R Total: -1.7 -----L Total: -1.0 Bone mineral density BASELINE FRAX%s: The graph provided illustrates a 6.6% chance for a major osteoporotic fx and a 1.2% chance fo r the hips probability for fx in 10 years time. IMPRESSION: Osteopenia (T Score between -2.5 and -1). There is slightly increased risk of fracture and the patient may be considered for treatment. Re-Screen 2-5 years. NOTE: T-SCORE=SD OF THE YOUNG ADULT MEAN.
--- NOTE | 2022-08-24 08:19 | MM ---
Reason for Exam: Screening (asymptomatic). Last screening mammogram was performed 12 month(s) ago. Patient History: Menarche at age 20. First Full-Term at age 28. Postmenopausal. Core Biopsy on the Left side. 08/05/2002, Benign Ultrasound-Guided Core Biopsy on the left side. Risk Values: Joyce 5 year model risk: 2.5%. NCI Lifetime model risk: 9.4%. Prior Study Comparison: 01/31/2016 Left Diagnostic Mammogram, [facility]. 05/09/2019 Bilateral Screening Mammogram, [facility]. 07/28/2021 Bilateral Screening Mammogram, [facility]. Tissue Density: The breast tissue is heterogeneously dense. This may lower the sensitivity of mammography. Findings: Analyzed By CAD. There is no suspicious group of microcalcifications or new suspicious mass in either breast. Overall Assessment: Negative, BI-RAD 1 Management: Screening Mammogram of both breasts in 1 year. A clinical breast exam by your physician is recommended on an annual basis and results should be correlated with mammographic findings. [facility] will attempt to contact patient to return for supplemental views and ultrasound if indicated. Electronically signed and approved by: Mauricio Ruiz DO
== END | disposition home or self-care (01) ==
LOC: RADMAMWWP 07:00
PROVIDERS: ATTEND Family Medicine
DX: Z12.31 Encounter for screening mammogram for malignant neoplasm of breast (principal); M85.89 Other specified disorders of bone density and structure, multiple sites; Z78.0 Asymptomatic menopausal state
CPT/HCPCS: 77063; 77067; 77080

== ENCOUNTER → 2023-09-27 | Outpatient (CLI) | payer MEDICARE, OTHER ==
--- NOTE | 2023-09-28 09:09 | MM ---
Reason for Exam: Screening (asymptomatic). Last mammogram was performed 1 year(s) and 2 month(s) ago. Patient History: Menarche at age 20. First Full-Term at age 28. Postmenopausal. Patient has history of breast feeding. Core Biopsy on the Left side. 08/05/2002, Benign Ultrasound-Guided Core Biopsy on the left side. Risk Values: Joyce 5 year model risk: 1.7%. NCI Lifetime model risk: 6.3%. Prior Study Comparison: 05/09/2019 Bilateral Screening Mammogram, [facility]. 07/28/2021 Bilateral Screening Mammogram, [facility]. 08/23/2022 Bilateral MG 3D screening mammo w/cad, [facility]. Tissue Density: The breast tissue is heterogeneously dense. This may lower the sensitivity of mammography. Findings: Analyzed By CAD. There is no suspicious group of microcalcifications or new suspicious mass in either breast. Overall Assessment: Benign, BI-RAD 2 Management: Screening Mammogram of both breasts in 1 year. . Patient should continue monthly self-breast exams. A clinical breast exam by your physician is recommended on an annual basis. This exam should not preclude additional follow-up of suspicious palpable abnormalities. Note on Joyce scores and lifetime risk: 1. A Joyce score greater than 3% is considered moderate risk. If this is the case, consider specialist referral to assess eligibility for a risk reducing agent. 2. If overall lifetime risk for the development of breast cancer is 20% or higher, the patient may qualify for future screening with alternating mammogram and breast MRI. Electronically signed and approved by: Noman Flowers M.D. Radiologis
== END | disposition home or self-care (01) ==
LOC: RADMAMWWP 14:56
PROVIDERS: ATTEND Family Medicine
DX: Z12.31 Encounter for screening mammogram for malignant neoplasm of breast (principal); Z78.0 Asymptomatic menopausal state
CPT/HCPCS: 77063; 77067